=== PATIENT | female | born 1995 | race Caucasian/White ===

== ENCOUNTER → 2024-03-12 | Outpatient (CLI) | payer SELFPAY | END | disposition home or self-care (01) | PROVIDERS: Referring Provider Otolaryngology; Visit Provider Otolaryngology | DX: J32.9 Chronic sinusitis, unspecified (principal); J02.9 Acute pharyngitis, unspecified ==

== ENCOUNTER → 2024-03-13 | Outpatient (CLI) | payer BC, SELFPAY | END | disposition home or self-care (01) | LOC: LABSPEC 15:08 | PROVIDERS: Referring Provider Otolaryngology; Visit Provider Otolaryngology | DX: J32.9 Chronic sinusitis, unspecified (principal); J02.9 Acute pharyngitis, unspecified | CPT/HCPCS: 87070 ==

== ENCOUNTER 2024-05-06 21:04 | Emergency (ER) | payer BC, SELFPAY ==
[2024-05-06 21:05] VITALS: BP 136/94; PULSE 122; RESP 18; TEMP 36.1; O2SAT 99; BMI 28.1
[2024-05-06] MEDS: 0.9% Normal Saline (1000mL) 1,000 ML 999 ML IV (22:44)
[2024-05-06] MEDS: Diphenoxylate/Atrop 1 Tablet 2 TABLET PO (22:51)
[2024-05-06 22:52] LABS: Absolute Neutrophil Count 5.4 X10^3/uL (2.0-7.7); Basophil# 0.06 X10^3/uL; Basophil% 0.7 % (0-1); Eosinophil# 0.37 X10^3/uL; Eosinophils% 4.6 % (0-5); Hematocrit 42.1 % (37-47); Hemoglobin 14.2 g/dL (12.0-15.0); Lymphocyte % 22.2 % (19-41); Mean Corp Hgb Conc 33.7 g/dL (32-36); Mean Corpuscular Hgb 28.7 pg (27.0-32.0); Mean Corpuscular Volume 85.1 fL (81-99); Mean Platelet Vol. 10.2 fl (6.2-12.0); Monocyte# 0.43 X10^3/uL; Monocyte% 5.3 % (0-10); NRBC Flagged by Analyzer 0 % (0-5); Neutrophil # 5.44 X10^3/uL (2.7-7.7); Platelet Count 242 K/mm3 (150-450); RBC Distribution Width CV 11.6 % (11.6-14.6); RBC Distribution Width SD 35.8 fl (35.1-43.9); Red Blood Count 4.95 M/mm3 (4.2-5.4); White Blood Count 8.1 K/mm3 (4.4-11.0)
[2024-05-06 23:02] LABS: Internal QC Validated? YES +Cl - CLEAR BKGD; Pregnancy, Serum, hCG Quali. NEGATIVE Negative
[2024-05-06 23:04] VITALS: PULSE 86; RESP 18; O2SAT 100
[2024-05-06 23:08] LABS: AST(SGOT) 13 U/L (15-37); Alanine Aminotransfer ALT/SGPT 20 U/L (13-56); Albumin, Serum 4.5 g/dL (3.2-5.0); Alkaline Phosphatase 92 U/L (45-117); Anion Gap 6 (5-15); BUN 7 mg/dL (7-18); Bilirubin, Direct 0.19 mg/dL (0.00-0.30); Calcium,Total 9.9 mg/dL (8.5-10.1); Chloride 107 mmol/L (98-107); Creatinine, Serum 0.64 mg/dL (0.55-1.02); EST Glomerular Filtration Rate 118 mL/min (>60); Est Glom Filt Rate - Afr Amer 143 mL/min (>60); Estimated Creatinine Clearance 130.51 ml/min; Glucose 77 mg/dL (74-106); Potassium 3.4 mmol/L (3.5-5.1); Protein, Total 7.5 g/dL (6.4-8.2); Sodium Level 140 mmol/L (136-145)
--- NOTE | 2024-05-06 23:54 | EX.ED.DYSGE1 ---
HPI History of Present Illness Chief Complaint: Diarrhea Informant: patient Narrative Narrative: Patient is a 29-year-old female with past medical history of type 1 diabetes and she also reports IBS. She states she has had 3 weeks of diarrhea which she describes more as soft and fluffy. She states that there has been no blood or discoloration to the diarrhea and that it does not occur while she is sleeping. She reports that there is been no recent travel outside the country livestock exposure or antibiotic use. 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 Therefore she presents for evaluation [facility] Medical History (Updated 05/07/24 @ 02:[address] Tristin Banks, DO) Physical exam, pre-employment Home Medications ?Medication ?Instructions ?Recorded ?Last Taken ?Type diphenoxylate-atropine 2.5 1 tab PO 4X/DAY PRN diarrhea 5 05/06/24 Unknown Rx mg-0.025 mg tablet (Lomotil) days #20 tabs blood-glucose transmitter (Dexcom 05/07/24 Unknown History G6 Transmitter device) insulin aspart U-100 100 unit/mL 100 unit subcut DAILY 05/07/24 Unknown History subcutaneous solution (Novolog U-100 Insulin aspart) Allergy/AdvReac Type Severity Reaction Status Date / Time acetaminophen AdvReac Mild Nausea/Vom/ Verified 05/06/24 21:05 Diarrhea amoxicillin AdvReac Mild Nausea/Vom/ Verified 05/06/24 21:05 Diarrhea Family History no significant family his Social History Smoking Status: Never smoker ROS ROS ED Constitutional Constitutional ED: Denies chills or fever(s) Eyes Eyes: Denies blurry vision or change in vision ENT ENT ED: Denies sore throat Cardiovascular Cardiovascular: Denies chest pain Respiratory/Chest Respiratory/Chest: Denies cough or dyspnea Gastrointestinal Gastrointestinal: Reports diarrhea; Denies abdominal pain, melena, nausea or vomiting Genitourinary Genitourinary ED: Denies dysuria Musculoskeletal Musculoskeletal: Denies myalgias Integumentary Denies rash Neurologic Neurologic: Denies headache(s) Hematologic/Lymphatic Hematologic/Lymphatic: Denies easy bleeding or easy bruising EXAM Physical Exam Const Vital Signs: 05/06/24 21:05 05/06/24 23:04 05/07/24 00:21 Temperature 96.9 F L 97.2 F L Temperature Source Temporal Pulse Rate 122 H 86 95 Respiratory Rate 18 18 18 Blood Pressure 136/94 H 116/79 Blood Pressure Mean 108 91 Pulse Ox 99 100 99 Oxygen Delivery Method Room Air Room Air Positive well nourished and well developed General Appearance ED: well developed; Negative for pallor HEENT Reports dry mucous membranes HEENT Narrative: Mucous membranes are dry and tacky without tongue or lip swelling oral lesions or airway edema or compromise No secondary findings in the posterior pharynx to suggest infection Mouth ED: Yes dry mucous membranes Mouth: dry mucous membranes Eyes PERRL and EOMs intact bilaterally General Eye ED: Negative for pale conjunctiva or scleral icterus Neck supple Resp normal respiratory effort and clear to auscultation bilaterally Cardio regular rate and regular rhythm GI normal to inspection, nondistended, normoactive bowel sounds, non-tender, non-distended and no masses GI Narrative: No voluntary guarding or rigidity or pulsatile mass Auscultation: normoactive bowel sounds Palpation: soft Extremity normal to inspection Neuro oriented x3, CN's II-XII intact bilaterally and no sensory deficits noted Sensorium / Orientation: alert Motor Exam: strength 5/5 throughout Psych mental status grossly normal Skin no rashes or lesions noted and no wounds Skin Narrative: Skin turgor slightly increased General Skin Exam: Negative for jaundice or pallor MDM MDM MDM Narrative Medical decision making narrative: Patient arrived to the ER tachycardic and hypertensive otherwise with stable vitals. She reported 3 weeks of loose stool and is a type I diabetic. However she does not have risk factors for infectious diarrhea as she denies any recent antibiotic use travel outside the country or livestock exposure. However based on the prolonged nature of her symptoms and physical exam showing dehydration there is concern for acute kidney injury versus lecture abnormality versus DKA so basic workup was obtained. Labs revealed no clinically significant findings. Patient was able to give a stool sample in the ER and therefore to be sent for stool studies as this will ultimately inform us if there is any type of infectious process as the cause of her persistent loose stool. After IV hydration and Lomotil however she had improvement in vitals and abdomen remains soft and nonsurgical and therefore she is otherwise safe for discharge and can follow-up on an outpatient basis. History & Record Review Discussion w/independent historian: Patient Lab Data Attestation: I reviewed the patient's lab results. Labs: Laboratory Results - last 24 hr 05/06/24 22:43 WBC 8.1 RBC 4.95 Hgb 14.2 Hct 42.1 MCV 85.1 MCH 28.7 MCHC 33.7 RDW Std Deviation 35.8 RDW Coeff of Tamar 11.6 Plt Count 242 MPV 10.2 Immature Gran % (Auto) 0.200 Neut % (Auto) 67.0 Lymph % (Auto) 22.2 Hendricks % (Auto) 5.3 Eos % (Auto) 4.6 Baso % (Auto) 0.7 Absolute Neuts (auto) 5.4 Absolute Lymphs (auto) 1.80 Nucleated RBC % 0 Sodium 140 Potassium 3.4 L Chloride 107 Carbon Dioxide 27.0 Anion Gap 6 BUN 7 Creatinine 0.64 Estim Creat Clear Calc 130.51 Est GFR (MDRD) Af Amer 143 Est GFR (MDRD) Non-Af 118 BUN/Creatinine Ratio 11.0 Glucose 77 Calcium 9.9 Magnesium 2.0 Total Bilirubin 0.60 Direct Bilirubin 0.19 AST 13 L ALT 20 Alkaline Phosphatase 92 Total Protein 7.5 Albumin 4.5 Globulin 3.0 Serum , Qual NEGATIVE Discharge Plan Triage Chief Complaint: Diarrhea ED Provider: rTistin Banks Dx/Rx/DC Orders Clinical Impression: Diarrhea, Type 1 diabetes, Mild dehydration Instructions: ED Diarrhea, Unknown Cause Prescriptions: New diphenoxylate-atropine [Lomotil] 2.5-0.025 mg tablet 1 tab PO 4X/DAY PRN (Reason: diarrhea) 5 Days Qty: 20 0RF No Action insulin aspart U-100 [Novolog U-100 Insulin aspart] 100 unit/mL solution 100 unit subcut DAILY (DME) Dexcom G6 Transmitter Device MISCELLANEOUS Patient Comments: 1 EACH BY INSTRUCTED ROUTE EVERY 90 DAYS Primary Care Provider: Care Physician,No Primary Referrals: Chai Singh MD [Med Staff - Active Staff] - Care Physician,No Primary [Primary Care Provider] - Activity Restrictions/Additional Instructions: Your exam showed no obvious signs of infection. The stool sample you gave will be run to check to see if there is infectious process such as E. coli or Salmonella or C. difficile. If this is positive you will be notified otherwise no new notification indicates that the sample was negative for infectious process. Keep yourself well-hydrated and follow-up with your family doctor for repeat evaluation and return to the ER should you have any further concerns Print Language: Sinhala Disposition Disposition: Home, Self Care Discharge Date/Time: 05/07/24 00:22
[2024-05-07 00:21] VITALS: BP 116/79; PULSE 95; RESP 18; TEMP 36.2; O2SAT 99
== END 2024-05-07 00:22 | disposition home or self-care (01) ==
PROVIDERS: Emergency Provider Emergency Medicine; Visit Provider Emergency Medicine
DX: E86.0 Dehydration (principal); E10.9 Type 1 diabetes mellitus without complications; K58.0 Irritable bowel syndrome with diarrhea
CPT/HCPCS: 80048; 80076; 83735; 84703; 85025; 87177; 87209; 96360; 99284; J7030; A4216

== ENCOUNTER 2024-06-06 01:48 | Emergency (ER) | payer BC, SELFPAY ==
[2024-06-06 01:49] VITALS: BP 149/92; PULSE 113; RESP 20; TEMP 37; O2SAT 99; BMI 30.5
[2024-06-06 02:14] LABS: Mucous, Urine 0 SEEN /hpf (<or=2+); Red Blood Cells-Urine 0 SEEN /hpf (0-5); White Blood Cells 0 SEEN /hpf (0-5)
[2024-06-06 02:17] LABS: Absolute Neutrophil Count 5.1 X10^3/uL (2.0-7.7); Basophil# 0.06 X10^3/uL; Basophil% 0.7 % (0-1); Eosinophil# 0.54 X10^3/uL; Eosinophils% 6.3 % (0-5); Hematocrit 39.6 % (37-47); Hemoglobin 13.3 g/dL (12.0-15.0); Lymphocyte % 26.9 % (19-41); Mean Corp Hgb Conc 33.6 g/dL (32-36); Mean Corpuscular Volume 86.3 fL (81-99); Mean Platelet Vol. 10.6 fl (6.2-12.0); Monocyte# 0.57 X10^3/uL; Monocyte% 6.7 % (0-10); NRBC Flagged by Analyzer 0 % (0-5); Neutrophil # 5.05 X10^3/uL (2.7-7.7); Neutrophil % 59.2 % (47-70); Platelet Count 233 K/mm3 (150-450); RBC Distribution Width SD 37.8 fl (35.1-43.9); Red Blood Count 4.59 M/mm3 (4.2-5.4); White Blood Count 8.5 K/mm3 (4.4-11.0)
[2024-06-06 02:18] LABS: Color, Urine Yellow (Yellow); Glucose, Dipstick Normal (Normal); Ketone-Dipstick Negative (Negative); Leukocyte Esterase-Dipstick Negative /ul (Negative); Nitrite-Dipstick Negative (Negative); Occult Blood-Urine Negative /ul (Negative); Protein-Dipstick Negative (Negative); Urine Bilirubin Dipstick Negative (Negative); Urine Clarity Clear (Clear); Urine Urobilinogen Normal (Normal)
[2024-06-06 02:31] LABS: Bacteria 2+ /hpf (None Seen); Squamous Epithelial Cells - UA 0-5 SEEN /hpf (5-10)
[2024-06-06 02:33] LABS: Internal QC Validated? YES +Cl - CLEAR BKGD; Pregnancy, Serum, hCG Quali. NEGATIVE Negative; Record Kit Lot#, Serum Preg. 772476
[2024-06-06 02:34] LABS: ALB/GLOB Ratio 1.4 RATIO (0.9-2.4); AST(SGOT) 12 U/L (15-37); Alanine Aminotransfer ALT/SGPT 16 U/L (13-56); Albumin, Serum 4.2 g/dL (3.2-5.0); Alkaline Phosphatase 100 U/L (45-117); Anion Gap 9 (5-15); BUN 8 mg/dL (7-18); BUN/Creat Ratio 11.5 RATIO (10-20); Calcium,Total 9.5 mg/dL (8.5-10.1); Chloride 107 mmol/L (98-107); EST Glomerular Filtration Rate 107 mL/min (>60); Est Glom Filt Rate - Afr Amer 130 mL/min (>60); Estimated Creatinine Clearance 114.99 ml/min; Glucose 154 mg/dL (74-106); Potassium 3.7 mmol/L (3.5-5.1); Protein, Total 7.2 g/dL (6.4-8.2); Sodium Level 139 mmol/L (136-145)
--- NOTE | 2024-06-06 03:23 | ED.VIS.GI ---
HPI HPI - GI History of Present Illness Chief Complaint: Abd Pain Informant: patient Abdominal Pain/Flank Pain Onset: Month(s) (2) Context: Gradual Onset Timing: Continuous Quality: Burning and Sharp Location: Diffuse Worsened by: Food Relieved by: Nothing Nausea/Vomiting/Emesis GI Symptom: Positive for Nausea; Negative for Vomiting Diarrhea/Melena/Hematochezia GI Symptom: Positive for Diarrhea; Negative for Melena or Hematochezia Stool Quality: Positive for Watery; Negative for Black, Maroon or BRB per rectum Associated Symptoms Associated Symptoms: Negative for Dysuria, Frequency or Hematuria LMP: 05/16/2024 Narrative Narrative: Patient presents with abdominal pain that has been waxing and waning over the past 2 months. Patient states that became worse again today. Patient states that it came on gradually. Patient describes her pain as sharp and burning. Patient states her pain is over her upper and lower abdomen. Patient states it is worse with eating. Patient admits to some nausea but denies any vomiting. Patient admits to some watery diarrhea. Patient denies any melena or hematochezia. Patient denies any urinary complaints. Patient states her pain does radiate into her back. Patient states the first day of her last menstrual period was 05/16/2024. [facility] Medical History IBS (irritable bowel syndrome) Asthma Type 1 diabetes Physical exam, pre-employment Home Medications ?Medication ?Instructions ?Recorded ?Last Taken ?Type blood-glucose transmitter (Dexcom 05/07/24 Unknown History G6 Transmitter device) insulin aspart U-100 100 unit/mL 100 unit subcut DAILY 05/07/24 Unknown History subcutaneous solution (Novolog U-100 Insulin aspart) Allergy/AdvReac Type Severity Reaction Status Date / Time acetaminophen AdvReac Mild Nausea/Vom/ Verified 06/06/24 01:48 Diarrhea amoxicillin AdvReac Mild Nausea/Vom/ Verified 06/06/24 01:48 Diarrhea Surgical History History of adenoidectomy Hx of tonsillectomy S/P nasal surgery Social History Smoking Status: Never smoker ROS ROS ED Constitutional Constitutional ED: Denies chills or fever(s) Eyes Eyes: Denies blurry vision or change in vision ENT ENT ED: Reports sore throat; Denies rhinorrhea Cardiovascular Cardiovascular: Denies chest pain or palpitations Respiratory/Chest Respiratory/Chest: Denies cough or dyspnea Gastrointestinal Gastrointestinal: Reports abdominal pain, diarrhea and nausea; Denies melena or vomiting Genitourinary Genitourinary ED: Denies dysuria or hematuria Musculoskeletal Musculoskeletal: Reports back pain; Denies neck pain Integumentary Denies abscess or rash Neurologic Neurologic: Denies headache(s) or weakness Allergic/Immunologic Allergic/Immunologic ED: Denies mouth swelling or urticaria EXAM Physical Exam Const Vital Signs: 06/06/24 01:49 06/06/24 03:40 Temperature 98.6 F Temperature Source Oral Pulse Rate 113 H 91 Respiratory Rate 20 H 16 Blood Pressure 149/92 H 119/78 Blood Pressure Mean 111 91 Pulse Ox 99 98 Oxygen Delivery Method Room Air Positive well nourished and well developed General Appearance ED: well developed and NAD HEENT Reports moist mucous membranes Neck supple and no JVD Resp normal respiratory effort and clear to auscultation bilaterally Cardio regular rhythm Rate: tachycardic GI non-distended Palpation: soft and tender epigastric, LUQ and RUQ; Negative for guarding or rebound tenderness present Neuro CN's II-XII intact bilaterally, moves all extremities and no sensory deficits noted Sensorium / Orientation: alert Motor Exam: strength 5/5 throughout Psych mental status grossly normal MDM MDM MDM Narrative Medical decision making narrative: Differential diagnosis included gastroenteritis, viral illness, IBS, DKA, pancreatitis, peptic ulcer disease, cholecystitis, cholelithiasis, pyelonephritis, appendicitis, urinary tract infection, and colitis. CBC will be obtained to assess for leukocytosis and anemia. Comprehensive metabolic profile will be obtained to assess for electrolyte abnormality, renal function, and hepatic function. Lipase will be obtained to assess for pancreatitis. Serum acetone will be obtained to assess for diabetic ketoacidosis. Urinalysis will be obtained to assess for urinary tract infection and glucosuria. History & Record Review Additional record(s) reviewed:: Prior ED visit and Prior labs Lab Data Attestation: I reviewed the patient's lab results. Lab results narrative: CBC was reviewed and was within normal limits. Comprehensive metabolic profile was reviewed and was within normal limits with the exception of a mildly elevated glucose of 154. Lipase was reviewed and was normal at 24. Serum hCG was reviewed and was negative. Urinalysis was reviewed. There is no evidence of urinary tract infection or hematuria. Serum acetone level was reviewed and was negative. Labs: Laboratory Results - last 24 hr 06/06/24 06/06/24 02:06 02:10 WBC 8.5 RBC 4.59 Hgb 13.3 Hct 39.6 MCV 86.3 MCH 29.0 MCHC 33.6 RDW Std Deviation 37.8 RDW Coeff of Tamar 12.0 Plt Count 233 MPV 10.6 Immature Gran % (Auto) 0.200 Neut % (Auto) 59.2 Lymph % (Auto) 26.9 Miller % (Auto) 6.7 Eos % (Auto) 6.3 H Baso % (Auto) 0.7 Absolute Neuts (auto) 5.1 Absolute Lymphs (auto) 2.30 Nucleated RBC % 0 Sodium 139 Potassium 3.7 Chloride 107 Carbon Dioxide 23.0 Anion Gap 9 BUN 8 Creatinine 0.70 Estim Creat Clear Calc 114.99 Est GFR (MDRD) Af Amer 130 Est GFR (MDRD) Non-Af 107 BUN/Creatinine Ratio 11.5 Glucose 154 H Calcium 9.5 Total Bilirubin 0.60 AST 12 L ALT 16 Alkaline Phosphatase 100 Total Protein 7.2 Albumin 4.2 Globulin 3.0 Albumin/Globulin Ratio 1.4 Lipase 24 Serum , Qual NEGATIVE Urine Color Yellow Urine Clarity Clear Urine pH 7.0 Ur Specific [place] 1.010 Urine Protein Negative Urine Glucose (UA) Normal Urine Ketones Negative Urine Occult Blood Negative Urine Nitrite Negative Urine Bilirubin Negative Urine Urobilinogen Normal Ur Leukocyte Esterase Negative Urine RBC 0 SEEN Urine WBC 0 SEEN Ur Squamous Epith Cells 0-5 SEEN Urine Bacteria 2+ Urine Mucus 0 SEEN Acetone Level NEGATIVE Treatment and Re-Evaluation :: Patient was given IV fluids and Zofran. Patient was feeling better on reevaluation. Patient was advised of her findings. I reviewed patient's stool studies from her previous visit. Stool was negative for ova and parasites. Patient was instructed to start with a liquid diet and advance as tolerated. Patient was given a referral for gastroenterology. Patient was instructed to follow-up in 5 to 7 days for further evaluation. Patient was instructed return if worse in any way. Patient understood and was agreeable with the plan. All questions were answered. Discharge Plan Triage Chief Complaint: Abd Pain ED Provider: Mata Owusu Dx/Rx/DC Orders Clinical Impression: Abdominal pain, Diarrhea, Diabetes mellitus Instructions: ED Abdominal Pain Unkn Cause Fem, ED Diarrhea, Unknown Cause Prescriptions: No Action insulin aspart U-100 [Novolog U-100 Insulin aspart] 100 unit/mL solution 100 unit subcut DAILY (DME) Dexcom G6 Transmitter Device MISCELLANEOUS Patient Comments: 1 EACH BY INSTRUCTED ROUTE EVERY 90 DAYS Primary Care Provider: Care Physician,No Primary Referrals: Sly Carson DO [Med Staff - Active Staff] - 1-2 Weeks Care Physician,No Primary [Primary Care Provider] - Doctor,Your [Non-Staff] - 5-7 Days (Call your primary care physician tomorrow and tell them you were seen in the emergency department and you need a follow-up appointment.) Print Language: Icelandic Disposition Disposition: Home, Self Care
[2024-06-06 03:40] VITALS: BP 119/78; PULSE 91; RESP 16; O2SAT 98
[2024-06-06 03:45] LABS: Lipase 24 U/L (13-75)
[2024-06-06 04:48] VITALS: BP 122/78; PULSE 88; RESP 16; TEMP 37.1; O2SAT 100
== END 2024-06-06 05:01 | disposition home or self-care (01) ==
PROVIDERS: Emergency Provider Emergency Medicine; Visit Provider Emergency Medicine
DX: R10.9 Unspecified abdominal pain (principal); E11.9 Type 2 diabetes mellitus without complications; Z79.4 Long term (current) use of insulin; R11.2 Nausea with vomiting, unspecified; R19.7 Diarrhea, unspecified
CPT/HCPCS: 80053; 81001; 82009; 83690; 84703; 85025; 96361; 96374; 99282; J7030; A4216; J2405

== ENCOUNTER → 2024-06-10 | Outpatient (CLI) | payer BC, SELFPAY ==
[2024-06-10 14:22] LABS: Erythrocyte Sedimentation Rate 3 mm/hr (0-30)
[2024-06-10 14:32] LABS: CRP < 2.90 mg/L (0.0-3.0); LDH 160 U/L (84-246)
[2024-06-16 12:09] LABS: ACCA 2 units (0-90); ALCA 2 units (0-60); AMCA 5 units (0-100); Albumin 3.9 g/dL (2.9-4.4); Alpha-1-Globulins 0.3 g/dL (0.0-0.4); Alpha-2-Globulins 0.8 g/dL (0.4-1.0); Gamma Globulin 0.5 g/dL (0.4-1.8); Immunoglobulin A 26 mg/dL (87-352); Immunoglobulin G 425 mg/dL (586-1602); Immunoglobulin M 110 mg/dL (26-217); PROEL- TOTAL PROTEIN 6.3 g/dL (6.0-8.5); gASCA 4 units (0-50); t-Transglutaminase IgA <2 U/mL (0-3)
== END | disposition home or self-care (01) ==
LOC: LAB 13:52
DX: R10.9 Unspecified abdominal pain (principal); R19.7 Diarrhea, unspecified
CPT/HCPCS: 36415; 82784; 83516; 83615; 84165; 85652; 86036; 86140; 86334; 86671

== ENCOUNTER → 2024-06-12 | Outpatient (CLI) | payer BC, SELFPAY ==
[2024-06-16 09:08] LABS: Giardia Lamblia, Stool EIA Negative (Negative); Pancreatic Elastase, Fecal 544 (>200)
[2024-06-16 13:09] LABS: Calprotectin, Stool 190 ug/g (0-120)
== END | disposition home or self-care (01) ==
LOC: LABSPEC 13:42
DX: R10.9 Unspecified abdominal pain (principal); R19.7 Diarrhea, unspecified; K58.9 Irritable bowel syndrome, unspecified
CPT/HCPCS: 82653; 83630; 83993; 87329; 87506

== ENCOUNTER → 2024-07-07 | Outpatient (CLI) | payer BC, SELFPAY ==
--- NOTE | 2024-07-07 13:46 | CT_ITS ---
STUDY: CT ABDOMEN AND PELVIS WITH CONTRAST REASON FOR EXAM: Female, 29 years old. Severe abdominal pain -- IV and PO contrast RADIATION DOSAGE (If Supplied By Facility): CTDIvol = ( 8.73 ) mGy, DLP = ( 536.58 ) mGycm TECHNIQUE: Transaxial images were obtained from the dome of the diaphragm to the symphysis pubis with oral contrast. Oral and amp;amp; IV Readi-CAT and amp;amp; 100mL Isovue-370 was administered. Sagittal and coronal images were reconstructed. Individualized dose optimization techniques were used for this CT. COMPARISON: None. FINDINGS: The visualized lung bases are unremarkable. The visualized portions of the heart are within normal limits. Borderline hepatomegaly. Normal gallbladder and extrahepatic biliary system. There is mild splenomegaly. Normal pancreas. Normal bilateral adrenal glands. Normal right kidney. Normal left kidney. Normal visualized stomach. Normal small intestine. Fecal material is seen throughout the colon. The appendix is visualized and appears normal. Normal abdominal aorta. Normal inferior vena cava. Normal retroperitoneum. Normal urinary bladder. IUD is seen within the uterus. Heterogeneous enlargement of the right ovary measuring 3.2 cm x 3 cm. Correlation with ultrasound of the pelvis recommended. Normal abdominal wall. Normal osseous structures. CT/Abdomen/Pelvis WITH Contrast IMPRESSION: Heterogeneous enlargement of the right ovary. Correlation with pelvic sonogram recommended. IUD is seen within the uterus. Moderate amount of fecal material is seen in the colon. Mild splenomegaly. Electronically Signed: Michael Louie MD at 12:17 EDT ,
== END | disposition home or self-care (01) ==
LOC: CT 13:45
DX: R10.84 Generalized abdominal pain (principal); K58.0 Irritable bowel syndrome with diarrhea
CPT/HCPCS: 74177; Q9967

== ENCOUNTER 2025-03-16 12:07 | Day surgery (SDC) | payer BC, SELFPAY ==
[2025-03-16] VITALS (7 sets, daily range): BP systolic 84–131; BP diastolic 52–73; PULSE 85–113; RESP 16–18; TEMP 36.7–37.2; O2SAT 99–100; BMI 29.5
[2025-03-16] MEDS: Lactated Ringers 1,000 ML 15 ML IV (12:48)
[2025-03-16 12:55] LABS: Bedside Glucose 150 mg/dL (74-106)
[2025-03-16 12:56] LABS: Internal QC Validated? YES +Cl - CLEAR BKGD; Pregnancy, Urine Negative Negative
--- NOTE | 2025-03-16 13:11 | PCM.PRE.AN2 ---
ASA Classification* ASA Classification ASA Classification: 2 Assessment & Plan Anesthesia* Anesthesia Assessment Anesthesia Assessment: Discussed sedation and/or anesthesia options, risks, benefits, and alternatives with patient/parents/legal guardian/POA. Questions invited. The patient/parents/legal guardian/POA seems to understand and agrees to proceed with anesthesia plan. Reviewed the physical assessment, medical history, allergy history and patient home medications list prior to surgery/procedure/anesthetic and documented any changes. Performed airway and anesthesia risk assessments. Anesthesia Type Anesthesia Type: MAC History Source History Obtained from:: Patient and Chart Anesthesia Focused Assessment* Temperature: 98.6 F Pulse Rate: 113 Blood Pressure: 131/73 Respiratory Rate: 18 Pulse Ox: 100 Oxygen Delivery Method: Room Air Airway Assessment Mouth opens: >3 cm Mallampati Score: III Teeth Condition: Intact Neck Range of motion (ROM): Full ROM Focused Labs Anesthesia Preop lab: CBC WBC 8.5 K/mm3 (4.4-11.0) 06/06/24 02:06 06/06/24 RBC 4.59 M/mm3 (4.2-5.4) 06/06/24 02:06 06/06/24 Hgb 13.3 g/dL (12.0-15.0) 06/06/24 02:06 06/06/24 Hct 39.6 % (37-47) 06/06/24 02:06 06/06/24 Plt Count 233 K/mm3 (150-450) 06/06/24 02:06 06/06/24 CHEMISTRY Potassium 3.7 mmol/L (3.5-5.1) 06/06/24 02:06 06/06/24 Sodium 139 mmol/L (136-145) 06/06/24 02:06 06/06/24 Magnesium 2.0 mg/dL (1.6-2.6) 05/06/24 22:43 05/06/24 BUN 8 mg/dL (7-18) 06/06/24 02:06 06/06/24 Creatinine 0.70 mg/dL (0.55-1.02) 06/06/24 02:06 06/06/24 Glucose 154 mg/dL (74-106) H 06/06/24 02:06 06/06/24 POC Glucose 150 mg/dL (74-106) H 03/16/25 12:36 03/16/25 COAG Urine Test Negative Negative 03/16/25 12:30 03/16/25 Pre-Assessment Diagnosis/Proposed Procedure Planned Operative Procedure(s): CSCOPE/EGD Anesthesia History Anesthesia History - machine stoppage frequency checker: Anesthesia History - machine stoppage frequency checker Hx Hospitalization No 03/11/25 13:02 Any Problems With Anesthesia No 03/11/25 13:02 Cholinesterase deficiency No 03/11/25 13:02 You/Your Family Experience No 03/11/25 13:02 fever (hyperthermia) with Relationship Recent Exposure to Contagious No 03/16/25 12:49 Disease Does patient have nerve No 03/11/25 13:02 stimulator Patient instructed to have device shut off --Does patient have Pacemaker No 03/16/25 12:49 or ICD? When Was Last Pacemaker Check QUESTION #4 FULL TEXT: You/Your Family Experience fever (hyperthermia) with Anesthesia Last Oral Intake Last Oral intake: Last Oral Intake NPO since 09:00 03/16/25 12:49 Meds taken in AM with sips of No 03/16/25 12:49 water? Meds patient instructed to breo 03/16/25 12:49 take am of surgery Any additional information?: Yes NPO since: 09:00 (Patient finished her prep at 9 AM.) PONV PONV - machine stoppage frequency checker: PONV - machine stoppage frequency checker Female Yes 03/11/25 13:02 HX of Motion Sickness Yes 03/11/25 13:02 HX of N/V After Surgery No 03/11/25 13:02 Non-Smoker Yes 03/11/25 13:02 Duration of Surgery greater No 03/11/25 13:02 than 60 minutes Number of Risk Factors 3 03/11/25 13:02 PONV Score Moderate Risk 03/11/25 13:02 Height & Weight Height & Weight: Anesthesia: Height & Weight Height 5 ft 3 in 03/16/25 12:49 Weight: 75.5 kg 03/16/25 12:49 Body Mass Index (BMI) 29.5 03/16/25 12:49 Respiratory Assessment Respiratory Assessment - machine stoppage frequency checker: Respiratory Tract Infection Hx - machine stoppage frequency checker Hx Respiratory Tract Infection No 03/11/25 13:02 STOP Sleep Apnea STOP Sleep Apnea - machine stoppage frequency checker: STOP Sleep Apnea - machine stoppage frequency checker Hx Hypertension No 03/11/25 13:02 Hx Sleep Apnea No 03/11/25 13:02 CPAP BIPAP Do you snore loudly (louder No 03/11/25 13:02 than talking or can be heard Do you often feel tired/ No 03/11/25 13:02 fatigued/ sleepy during daytime? Has anyone observed you stop No 03/11/25 13:02 breathing during sleep? STOP Results Negative 03/11/25 13:02 QUESTION #5 FULL TEXT : Do you snore loudly (louder than talking or can be heard through closed doors)? Tobacco Use History Tobacco Use History - machine stoppage frequency checker: Tobacco Use History - machine stoppage frequency checker Tobacco Use Smoking Status Never smoker 03/11/25 13:02 Hx Tobacco Use No 03/11/25 13:02 Years Smoking Packs Smoked per Day Smoking Cessation Date was within the last 15 years Hx Smoking Cessation Date Hx Smoking Cessation Counseling Hematologic Medial History Hematologic Hx - machine stoppage frequency checker: Hematologic Medical Hx - digital strategy specialist Hx of Blood Transfusion No 03/11/25 13:02 Hx of Transfusion in last 3 No 03/11/25 13:02 Months Date of Last Transfusion (if within last 3 months) Ever experience any problems No 03/11/25 13:02 with transfusion(s)? Specify any problems Hx of Preganancy in last 3 No 03/11/25 13:02 Months Nurse Filling Out Transfusion DSCHRIBER 03/11/25 13:02 & Questions: Date: 03/11/25 03/11/25 13:02 Time: 13:03 03/11/25 13:02 Patient unable to answer at this time (ie. confused, unrespo /Reproduction History /Reproductive History - machine stoppage frequency checker: /Reproductive Hx- machine stoppage frequency checker Hx Now No 03/11/25 13:02 Gestational Age (in weeks): EDC: Hx Hx Para Hx Section SAB No 03/11/25 13:02 Active Medications Active Medications: Current Medications Generic Name Dose Route Start Last Admin Trade Name Freq PRN Reason Stop Dose Admin Lactated Ringer's 1,000 mls @ 15 mls/hr 03/16/25 12:30 03/16/25 12:48 IV 15 mls/hr .Q48H BÁRBARA Administration PFSH Medical History Anxiety Alcohol use Insulin dependent diabetes mellitus History of renal disease Low iron Restless legs Migraine headache History of ulceration Gastric reflux Shortness of breath on exertion Non-smoker IBS (irritable bowel syndrome) Asthma Type 1 diabetes Physical exam, pre-employment Home Medications ?Medication ?Instructions ?Recorded ?Last Taken ?Type blood-glucose transmitter (Dexcom 05/07/24 Unknown History G6 Transmitter device) insulin aspart U-100 100 unit/mL 100 unit subcut DAILY 05/07/24 Unknown History subcutaneous solution (Novolog U-100 Insulin aspart) albuterol sulfate 90 mcg/actuation 1 inh inhalation ONCE 06/10/24 Unknown History aerosol inhaler clonidine HCl 0.2 mg tablet 0.2 mg PO QHS 06/10/24 Unknown History fluticasone furoate 100 1 inh inhalation DAILY 06/10/24 03/16/25 History mcg-vilanterol 25 mcg/dose inhalation powder (Breo Ellipta) levonorgestrel 17.5 mcg/24 hr (up 1 device intrauterine ONCE 06/10/24 Unknown History to 5 yrs) 19.5mg intrauterine device (Kyleena) hyoscyamine sulfate 0.125 mg tablet 0.125 mg PO BID-QID PRN dyspepsia 11/27/24 Unknown Rx #30 tabs diphenoxylate-atropine 2.5 1 tab PO BID PRN diarrhea #14 tabs 12/31/24 Unknown Rx mg-0.025 mg tablet (Lomotil) colestipol 1 gram tablet 4 g (4 x 1 gram) PO BID 1 month 01/26/25 Unknown Rx #240 tabs melatonin 10 mg capsule 10 mg PO QHS PRN sleep 03/11/25 Unknown History Allergy/AdvReac Type Severity Reaction Status Date / Time acetaminophen AdvReac Mild Nausea/Vom/ Verified 03/16/25 12:46 Diarrhea amoxicillin AdvReac Mild Nausea/Vom/ Verified 03/16/25 12:46 Diarrhea Family History Mother Ulcerative colitis Surgical History Hx of colonoscopy Hx of toe surgery History of adenoidectomy Hx of tonsillectomy S/P nasal surgery Social History Smoking Status: Never smoker Review of Systems (Anesthesia) ROS Narrative System reviewed and no additional complaints, except as documented.
--- NOTE | 2025-03-16 13:30 | EGD_PTH ---
PATIENT: CHAY NAVARRO LOC: EN U#:[id number] AGE/SX: 30/F ROOM: RE03/16/[address]: Dr. Sly Carson DO : 1995 BED: DIS: 03/16/2025 SPEC #: [id number] RECD: 03/16/25 16:47 STATUS: JOSE MARTIN RENeal #: [id number] VALENTINO: 03/16/25 13:[address]: Sly Carson DEPT: SURGICAL PATHOLOGY RECD BY: Beau Bonds ENTERED: 03/17/25 08:51 SP TYPE: EGD BIOPSY OTHR DR: Karina Lassiter MD Tissues: A - Duodenum, NOS B - Gastric mucous membrane C - Ileum, NOS D - COLON BIOPSY E - Rectum, NOS Procedures: Immunohistochemical Stains Surgery Specimen Level IV HEADER OPERATION: Colonoscopy with biopsies, EGD with biopsies PRE-OP DIAGNOSIS: Nausea, diarrhea, abdominal pain TISSUE SUBMITTED: A- Duodenum biopsy, B- Gastric body biopsy, C- Terminal ileum biopsy, D- Random colon biopsy, E- Rectal biopsy MICROSCOPIC DIAGNOSIS A. Small bowel, duodenum, biopsy: Normal villous architecture with focal Niya gland hyperplasia. Negative for increased intraepithelial lymphocytes. B. Stomach, gastric body, biopsy: Oxyntic mucosa with chronic gastritis. IHC negative for H.pylori organisms. C. Small bowel, terminal ileum, biopsy: Normal villous architecture with prominent mucosal lymphoid aggregates, favor reactive. D. Colon, random, biopsy: Hyperplastic polyp (one fragment). Colonic mucosa with no specific pathologic change (4 fragments). E. Rectum, biopsy: No specific pathologic change. MICROSCOPIC DESCRIPTION Slides are reviewed. All matched controls reacted appropriately. These tests were developed and their performance characteristics determined by [facility]. They may not have been cleared or approved by the U.S. Food and Drug Administration. The FDA has determined that such clearance or approval is not necessary. The above immunohistochemical/dualISH markers are ordered and reviewed by the Pathologist. GROSS DESCRIPTION A. Received in formalin in a container labeled with the patient's name, date of , and duodenum are 2 dorsey-pink fragments of mucosal tissue measuring 0.4 x 0.2 x 0.2 cm and 0.3 x 0.3 x 0.2 cm. Submitted in toto in A1. B. Received in formalin in a container labeled with the patient's name, date of , and gastric body for H. pylori and path are 2 dorsey-pink fragments of mucosal tissue measuring 0.3 x 0.2 x 0.2 cm and 0.5 x 0.2 x 0.2 cm. Submitted in toto in B1. C. Received in formalin in a container labeled with the patient's name, date of , and terminal ileum biopsy are 3 dorsey-pink fragments of mucosal tissue ranging from 0.3 x 0.2 x 0.2 cm to 0.5 x 0.2 x 0.2 cm. Submitted in toto in C1. D. Received in formalin in a container labeled with the patient's name, date of , and random colon biopsy are multiple dorsey-pink fragments of mucosal tissue measuring 1.0 x 0.7 x 0.3 cm in aggregate. Submitted in toto in D1. E. Received in formalin in a container labeled with the patient's name, date of , and rectal biopsy are 2 dorsey-pink fragments of mucosal tissue measuring 0.3 x 0.3 x 0.2 cm and 0.4 x 0.3 x 0.2 cm. Submitted in toto in E1. [facility] 03-17-2025 CPT:22855r0,09800
[2025-03-16] MEDS: Dextrose 5%-Lactated Ringers 1,000 ML 15 ML IV (13:41)
--- NOTE | 2025-03-16 13:46 | PCM.HP.STD ---
HPI - General General Date of Admission: 03/16/25 Date of Service: 03/16/25 Chief Complaint: diarrhea HPI Narrative CHAY NAVARRO, is a 30 F who presents for evaluation of diarrhea BGI established 06.10.24 with painful urgent loose stools starting after course of doxycycline and prednisone for a throat infection. Started on Colestipol Biochemical work up 06.12.24; IBD sgi wnl, cbc wnl, cmp wnl, fecal elastase wnl, fecal fat wnl, IGA low, IGG low, calprotectin [address] abd/pelvis 07.07.24: Heterogeneous enlargement of the right ovary. Correlation with pelvic sonogram recommended. IUD is seen within the uterus. Moderate amount of fecal material is seen in the colon. Mild splenomegaly. Last OV 09.29.24 Pt with improved symptoms on colestipol. Taking dicyclomine PRN for abd pain. Happy with improvements OV 3; Pt has had worsening in her symptoms over the past month. Her abd pain is back. It is in the epigastric region and associated with bloating. She is nausea on most days but does not vomit. She is having loose stools up to 6 times per day. She takes colestipol 4 grams daily. [facility] Medical History (Updated 03/16/25 @ 13:[address] Heart Friend, DO) Diarrhea Anxiety Alcohol use Insulin dependent diabetes mellitus History of renal disease Low iron Restless legs Migraine headache History of ulceration Gastric reflux Shortness of breath on exertion Non-smoker IBS (irritable bowel syndrome) Asthma Type 1 diabetes Physical exam, pre-employment Home Medications ?Medication ?Instructions ?Recorded ?Last Taken ?Type blood-glucose transmitter (Dexcom 05/07/24 Unknown History G6 Transmitter device) insulin aspart U-100 100 unit/mL 100 unit subcut DAILY 05/07/24 Unknown History subcutaneous solution (Novolog U-100 Insulin aspart) albuterol sulfate 90 mcg/actuation 1 inh inhalation ONCE 06/10/24 Unknown History aerosol inhaler clonidine HCl 0.2 mg tablet 0.2 mg PO QHS 06/10/24 Unknown History fluticasone furoate 100 1 inh inhalation DAILY 06/10/24 03/16/25 History mcg-vilanterol 25 mcg/dose inhalation powder (Breo Ellipta) levonorgestrel 17.5 mcg/24 hr (up 1 device intrauterine ONCE 06/10/24 Unknown History to 5 yrs) 19.5mg intrauterine device (Kyleena) hyoscyamine sulfate 0.125 mg tablet 0.125 mg PO BID-QID PRN dyspepsia 11/27/24 Unknown Rx #30 tabs diphenoxylate-atropine 2.5 1 tab PO BID PRN diarrhea #14 tabs 12/31/24 Unknown Rx mg-0.025 mg tablet (Lomotil) colestipol 1 gram tablet 4 g (4 x 1 gram) PO BID 1 month 01/26/25 Unknown Rx #240 tabs melatonin 10 mg capsule 10 mg PO QHS PRN sleep 03/11/25 Unknown History Allergy/AdvReac Type Severity Reaction Status Date / Time acetaminophen AdvReac Mild Nausea/Vom/ Verified 03/16/25 12:46 Diarrhea amoxicillin AdvReac Mild Nausea/Vom/ Verified 03/16/25 12:46 Diarrhea Family History Mother Ulcerative colitis Surgical History Hx of colonoscopy Hx of toe surgery History of adenoidectomy Hx of tonsillectomy S/P nasal surgery Social History Smoking Status: Never smoker ROS Constitutional Constitutional: Denies fatigue, fever(s), poor appetite, weight gain or weight loss Gastrointestinal Gastrointestinal: Denies belching, bloating, change in bowel habits, change in stool character, chewing difficulty, coffee ground emesis, constipation, cramping, diarrhea, dyspepsia, dysphagia, early satiety, excessive flatus, fecal incontinence, heartburn, hematemesis, hematochezia, hemorrhoids, loose stools, melena, nausea, odynophagia, rectal bleeding, tenesmus, vomiting or weight changes Vital Signs Vital Signs Vital Signs: 03/16/25 12:49 03/16/25 12:49 03/16/25 13:17 Temperature 98.6 F 98.6 F Temperature Source Temporal Pulse Rate 113 H 113 H Respiratory Rate 18 18 Respiratory Pattern Normal Blood Pressure 131/73 H 131/73 H Blood Pressure Mean 92 Blood Pressure Source Monitor Blood Pressure Position Semi-Fowlers Blood Pressure Location Right Arm Pulse Ox 100 100 Oxygen Delivery Method Room Air Room Air Weight Weight: 166 lb 7.184 oz Body Mass Index (BMI) 29.5 Physical Exam Const alert, oriented x3, no apparent distress and healthy appearing General Appearance: cooperative GI normal to inspection, nondistended, normoactive bowel sounds, soft to palpation, non-tender and non-distended Percussion: normal to percussion Rectal Exam: deferred Results Lab / Micro Data Labs: Laboratory Results - last 24 hr 03/16/25 12:30: Urine Test Negative 03/16/25 12:36: POC Glucose 150 H Assessment & Plan Assessment/Plan (1) Irritable bowel syndrome with diarrhea: (2) Diarrhea: PLAN: Assessment and Plan Assessment and Plan (1) Nausea: Status: Acute Plan: This is a 29 yo female pt here today for f/u regarding her IBS symptoms. Pt had her symptoms under control up until about one month ago. She has complaints of nausea, bloating and epigastric pain. Last EGD was about 5 years ago. She will undergo repeat to assess her upper GI tract. She will also have GES to rule out gastroparesis as she has rf and symptoms. PT is having loose stools up to 6x per day while on 4 grams of colestipol daily. She will undergo colonoscopy to assess her colon for colitis. Calprotectin from 2023 was mildly elevated. She will continue taking colestipol and add lomotil PRN. -GES -EGD and colonoscopy -Continue Colestipol -Lomotil PRN -F/u after procedure (2) Irritable bowel syndrome with diarrhea: Status: Acute (3) Abdominal pain: Status: Inactive Qualifiers: Abdominal location: generalized Qualified Code(s): R10.84 - Generalized abdominal pain Orders: Orders Gastric Emptying Study Today R11.0 - Nausea Medications: New diphenoxylate-atropine 2.5-0.025 mg (Lomotil) 1 TAB PO BID PRN 14 tabs 1RF diarrhea
--- NOTE | 2025-03-16 14:22 | OP.EGD_ITS ---
Patient Name: Shani Hong Procedure Date: 03/16/2025 1:44 PM Date of : 1995 Age: 30 Procedure: Upper GI endoscopy Indications: Epigastric abdominal pain, Diarrhea Providers: Sly Carson DO Medicines: Monitored Anesthesia Care Patient Profile: This is a 30 year old female. Refer to note in patient chart for documentation of history and physical. Patient has symptoms of chronic abdominal cramping, chronic epigastric abdominal pain, chronic dyspepsia and chronic nausea. Complications: No immediate complications. Procedure: Pre-Anesthesia Assessment: - Prior to the procedure, a History and Physical was performed, and patient medications and allergies were reviewed. The patient is competent. The risks and benefits of the procedure and the sedation options and risks were discussed with the patient. All questions were answered and informed consent was obtained. Patient identification and proposed procedure were verified by the physician in the pre-procedure area. Mental Status Examination: alert and oriented. Airway Examination: normal oropharyngeal airway and neck mobility. Respiratory Examination: clear to auscultation. CV Examination: normal. ASA Grade Assessment: II - A patient with mild systemic disease. After reviewing the risks and benefits, the patient was deemed in satisfactory condition to undergo the procedure. The anesthesia plan was to use monitored anesthesia care (MAC). Immediately prior to administration of medications, the patient was re-assessed for adequacy to receive sedatives. The heart rate, respiratory rate, oxygen saturations, blood pressure, adequacy of pulmonary ventilation, and response to care were monitored throughout the procedure. The physical status of the patient was re-assessed after the procedure. After obtaining informed consent, the endoscope was passed under direct vision. Throughout the procedure, the patient's blood pressure, pulse, and oxygen saturations were monitored continuously. The Colonoscope was introduced through the mouth, and advanced to the fourth part of the duodenum. Small bowel enteroscopy was deemed necessary. The upper GI endoscopy was accomplished without difficulty. The patient tolerated the procedure well. Scope In: 1:58:12 PM Scope Out: 2:01:42 PM Total Procedure Duration Time 0 hours 3 minutes 30 seconds Findings: The examined esophagus was normal. Patchy mildly erythematous mucosa without bleeding was found in the gastric body. Biopsies were taken with a cold forceps for histology. Verification of patient identification for the specimen was done. Estimated blood loss was minimal. Biopsies were taken with a cold forceps for Helicobacter pylori testing. Verification of patient identification for the specimen was done. Estimated blood loss was minimal. Patchy mild inflammation characterized by congestion (edema) was found in the first portion of the duodenum and in the second portion of the duodenum. Biopsies were taken with a cold forceps for histology. Verification of patient identification for the specimen was done. Estimated blood loss was minimal. Impression: - Normal esophagus. - Erythematous mucosa in the gastric body. Biopsied. - Duodenitis. Biopsied. Recommendation: - Discharge patient to home. - Resume previous diet. - Continue present medications. - Await pathology results. Procedure Code(s): --- Professional --- 56349, Small intestinal endoscopy, enteroscopy beyond second portion of duodenum, not including ileum; with biopsy, single or multiple CPT copyright 2021 [employer]. All rights reserved. The codes documented in this report are preliminary and upon coater slate review may be revised to meet current compliance requirements. Sly Carson DO 03/16/2025 2:22:06 PM This report has been signed electronically. Number of Addenda: 0 Note Initiated On: 03/16/2025 1:44 PM
--- NOTE | 2025-03-16 14:22 | OP.CCLET_ITS ---
03/16/2025 No Primary Care Physician Re : Upper GI endoscopy procedure for Shani Hong Dear Care Physician This procedure was performed on Sunday, March 16, 2025. My impressions and recommendations are as follows: Impressions : - Normal esophagus. - Erythematous mucosa in the gastric body. Biopsied. - Duodenitis. Biopsied. Recommendations : - Discharge patient to home. - Resume previous diet. - Continue present medications. - Await pathology results. My findings are described in the full procedure note, which is enclosed. If I can be of further assistance, please feel free to contact me at . Sincerely, Sly Carson, 03/16/2025 2:22:06 PM This report has been signed electronically.
--- NOTE | 2025-03-16 14:25 | OP.CCLET_ITS ---
03/16/2025 No Primary Care Physician Re : Colonoscopy procedure for Shani Hong Dear Care Physician This procedure was performed on Sunday, March 16, 2025. My impressions and recommendations are as follows: Impressions : - Congested mucosa in the rectum, in the sigmoid colon, at the hepatic flexure and in the ascending colon. Biopsied. - Mild inflammation was found in the ileum secondary to ileitis. Biopsied. Recommendations : - Discharge patient to home. - Resume previous diet. - Continue present medications. - Await pathology results. - Repeat colonoscopy for surveillance based on pathology results. My findings are described in the full procedure note, which is enclosed. If I can be of further assistance, please feel free to contact me at . Sincerely, Sly Carson, 03/16/2025 2:25:14 PM This report has been signed electronically.
--- NOTE | 2025-03-16 14:25 | OP.COLON_ITS ---
Patient Name: Shani Hong Procedure Date: 03/16/2025 2:01 PM Date of : 1995 Age: 30 Procedure: Colonoscopy Indications: Clinically significant diarrhea of unexplained origin Providers: Sly Carson DO Medicines: Monitored Anesthesia Care Patient Profile: This is a 30 year old female. Refer to note in patient chart for documentation of history and physical. Patient has symptoms of chronic abdominal cramping, chronic epigastric abdominal pain, chronic dyspepsia and chronic nausea. Last Colonoscopy: none. The patient's first colonoscopy is today. Complications: No immediate complications. Procedure: Pre-Anesthesia Assessment: - Prior to the procedure, a History and Physical was performed, and patient medications and allergies were reviewed. The patient is competent. The risks and benefits of the procedure and the sedation options and risks were discussed with the patient. All questions were answered and informed consent was obtained. Patient identification and proposed procedure were verified by the physician in the pre-procedure area. Mental Status Examination: alert and oriented. Airway Examination: normal oropharyngeal airway and neck mobility. Respiratory Examination: clear to auscultation. CV Examination: normal. ASA Grade Assessment: II - A patient with mild systemic disease. After reviewing the risks and benefits, the patient was deemed in satisfactory condition to undergo the procedure. The anesthesia plan was to use monitored anesthesia care (MAC). Immediately prior to administration of medications, the patient was re-assessed for adequacy to receive sedatives. The heart rate, respiratory rate, oxygen saturations, blood pressure, adequacy of pulmonary ventilation, and response to care were monitored throughout the procedure. The physical status of the patient was re-assessed after the procedure. After I obtained informed consent, the scope was passed under direct vision. Throughout the procedure, the patient's blood pressure, pulse, and oxygen saturations were monitored continuously. The Colonoscope was introduced through the anus and advanced to the terminal ileum. The colonoscopy was performed without difficulty. The patient tolerated the procedure well. The quality of the bowel preparation was adequate. The terminal ileum, ileocecal valve, appendiceal orifice, and rectum were photographed. Scope In: 2:03:44 PM Scope Withdrawal Time 0 hours 9 minutes 18 seconds Scope Out: 2:16:56 PM Total Procedure Duration Time 0 hours 13 minutes 12 seconds Findings: The perianal and digital rectal examinations were normal. An area of mildly congested mucosa was found in the rectum, in the sigmoid colon, at the hepatic flexure and in the ascending colon. Biopsies were taken with a cold forceps for histology. Verification of patient identification for the specimen was done. Estimated blood loss was minimal. Patchy mild inflammation characterized by congestion (edema) was found in the terminal ileum. Biopsies were taken with a cold forceps for histology. Verification of patient identification for the specimen was done. Estimated blood loss was minimal. Impression: - Congested mucosa in the rectum, in the sigmoid colon, at the hepatic flexure and in the ascending colon. Biopsied. - Mild inflammation was found in the ileum secondary to ileitis. Biopsied. Recommendation: - Discharge patient to home. - Resume previous diet. - Continue present medications. - Await pathology results. - Repeat colonoscopy for surveillance based on pathology results. Procedure Code(s): --- Professional --- 98489, Colonoscopy, flexible; with biopsy, single or multiple CPT copyright 2021 [employer]. All rights reserved. The codes documented in this report are preliminary and upon lab support tech review may be revised to meet current compliance requirements. Sly Carson DO 03/16/2025 2:25:14 PM This report has been signed electronically. Number of Addenda: 0 Note Initiated On: 03/16/2025 2:01 PM
--- NOTE | 2025-03-16 14:27 | PCM.POST.ANE ---
Anesthesia: Postop Eval I Current Vital Signs Temperature: 98.9 F Pulse Rate: 89 Blood Pressure: 84/52 Respiratory Rate: 16 Pulse Ox: 99 Oxygen Delivery Method: Room Air Assessment Airway patent: Yes Spontaneous unlabored respirations: Yes Mental status: Awake and Calm nausea: No Vomiting: No Anesthesia Complication: No Fluid Hydration Crystalloid volume administer (ml): 700 Total IV fluid infused: 700 Progress Note Anesthesia document: Postop Eval 1 completed: Yes
--- NOTE | 2025-03-16 20:42 | PCM.POSTANE2 ---
Anesthesia Postop Eval I Sum Postop Eval Completion status Anesthesia document: Postop Eval 1 completed: Yes Anesthesia Postop Eval I Summary Anesthesia Postop Eval I Summary: Anesthesia Postop Eval I: Assessment Summary Airway patent Yes 03/16/25 14:28 [email or web address] Spontaneous unlabored Yes 03/16/25 14:28 [email or web address] respirations Mental status Awake,Calm 03/16/25 14:28 [email or web address] nausea No 03/16/25 14:28 [email or web address] Vomiting No 03/16/25 14:28 [email or web address] Anesthesia Postop Eval I: Fluid Summary Crystalloid volume administer 700 03/16/25 14:28 [email or web address] (ml) Colloids volume administered ( ml) Blood Product volume administered (ml) Total IV fluid infused 700 03/16/25 14:28 [email or web address] Anesthesia Postop Eval I: Summary Notes Anesthesia Complication No 03/16/25 14:28 [email or web address] Anesthesia Complication Comment: Post-operative progress note Anesthesia: Postop Eval II Evaluation Mental status: Awake and Calm Pain Level: 0 nausea: No Vomiting: No Complications Anesthesia Complication: No
== END 2025-03-16 14:57 | disposition home or self-care (01) ==
PROVIDERS: Anesthesiology; PCP Family Medicine; Referring Provider Family Medicine; Visit Provider Internal Medicine Gastroenterology
PROC: 0DJD8ZZ Inspection of Lower Intestinal Tract, Via Natural or Artificial Opening Endoscopic (ICD-10-PCS; CPT 45378; principal; 2025-03-16 13:25)
DX: K63.5 Polyp of colon (principal); E10.9 Type 1 diabetes mellitus without complications; K58.0 Irritable bowel syndrome with diarrhea; Z79.51 Long term (current) use of inhaled steroids; K29.80 Duodenitis without bleeding; J45.909 Unspecified asthma, uncomplicated; K21.9 Gastro-esophageal reflux disease without esophagitis; K29.50 Unspecified chronic gastritis without bleeding
CPT/HCPCS: 43239; 45380; 81025; 82962; 88305; 88342; J2405

== ENCOUNTER → 2025-04-26 | Outpatient (CLI) | payer BC, SELFPAY | END | disposition home or self-care (01) | LOC: US 07:29 | PROVIDERS: PCP Family Medicine; Referring Provider Student in an Organized Health Care Education/Training Program; Visit Provider Student in an Organized Health Care Education/Training Program | DX: R10.9 Unspecified abdominal pain (principal) | CPT/HCPCS: 76705 ==

== ENCOUNTER → 2025-05-04 | Outpatient (CLI) | payer BC, SELFPAY ==
--- NOTE | 2025-05-04 10:41 | NM_ITS ---
PROCEDURE: HEPATOBILLIARY IMG W/PHARM INT 05/04/2025 REASON FOR EXAM: ABD PAIN TECHNIQUE: Intravenous Choletec with planar imaging of the abdomen. 1.5 mcg Kinevac intravenously approximately 6 minutes after the radiopharmaceutical with additional anterior imaging and a region of interest drawn around the gallbladder to calculate a time-activity curve. RADIOPHARMACEUTICAL: Mebrofenin DOSE 5.8mCi COMPARISON: None FINDINGS: There is good uptake of the radiopharmaceutical by the liver. Normal gallbladder visualization with the gallbladder identified by 30 minutes. Gallbladder Ejection Fraction: 0 % (Normal is >35%) NM/Hepatobilliary Img w/Pharm Int IMPRESSION: Homogeneous uptake by the liver and excretion into the intra and extrahepatic b iliary ducts. No gallbladder contraction at 29 minutes following the injection of CCK. Reading Location: [id number]
--- NOTE | 2025-05-04 10:41 | NM_ITS ---
PROCEDURE: HEPATOBILLIARY IMG W/PHARM INT 05/04/2025 REASON FOR EXAM: ABD PAIN TECHNIQUE: Intravenous Choletec with planar imaging of the abdomen. 1.5 mcg Kinevac intravenously approximately 6 minutes after the radiopharmaceutical with additional anterior imaging and a region of interest drawn around the gallbladder to calculate a time-activity curve. RADIOPHARMACEUTICAL: Mebrofenin DOSE 5.8mCi COMPARISON: None FINDINGS: There is good uptake of the radiopharmaceutical by the liver. Normal gallbladder visualization with the gallbladder identified by 30 minutes. Gallbladder Ejection Fraction: 0 % (Normal is >35%) NM/Hepatobilliary Img w/Pharm Int IMPRESSION: Homogeneous uptake by the liver and excretion into the intra and extrahepatic b iliary ducts. No gallbladder contraction at 29 minutes following the injection of CCK. Reading Location: [id number]
== END | disposition home or self-care (01) ==
LOC: NM 10:36
PROVIDERS: PCP Family Medicine; Referring Provider Student in an Organized Health Care Education/Training Program; Visit Provider Student in an Organized Health Care Education/Training Program
DX: R10.84 Generalized abdominal pain (principal); R11.0 Nausea; K58.0 Irritable bowel syndrome with diarrhea
CPT/HCPCS: 78227; A9537; J2805

== ENCOUNTER 2025-07-05 05:53 | Day surgery (SDC) | payer BC, SELFPAY ==
--- NOTE | 2025-06-29 12:58 | EKG12_ITS ---
Test Reason : PREOP Blood Pressure : */* mmHG Vent. Rate : 92 BPM Atrial Rate : 92 BPM P-R Int : 164 ms QRS Dur : 76 ms QT Int : 364 ms P-R-T Axes : 72 50 49 degrees QTcB Int : 450 ms Normal sinus rhythm Normal ECG Confirmed by Robert Campbell ([id number]), international editorial producer RENEE GALLARDO ([id number]) on 06/30/2025 7:13:48 AM Referred By: Luis Montelongo Confirmed By: Robert Campbell
[2025-06-29 17:01] LABS: Anion Gap 12 (5-15); BUN 11 mg/dL (4-19); BUN/Creat Ratio 15.7 RATIO (10-20); Calcium,Total 9.3 mg/dL (7.6-11.0); Carbon Dioxide 23.6 mmol/L (21.0-32.0); Chloride 105 mmol/L (98-108); Estimated Creatinine Clearance 121.64 ml/min (50-250); Glucose 110 mg/dL (70-99); Potassium 4.2 mmol/L (3.3-5.1)
[2025-07-05] VITALS (10 sets, daily range): BP systolic 116–130; BP diastolic 68–81; PULSE 93–106; RESP 14–18; TEMP 36.1–37.2; O2SAT 92–100; BMI 29.7
--- OUTSIDE RECORDS SUMMARY | 2025-07-05 05:59 | XMS RPT_ITS | CCD ---
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 [facility] Care Team Providers Care Program Services Planner Name Role Phone No, Physician Unavailable Unavailable KEVIN SHIPLEY Unavailable Unavailable NO, PHYSICIAN Unavailable Unavailable JAXON MEDELLIN Unavailable Unavailable BRI CAMARENA Attending Unavailable BRI CAMARENA Referring Unavailable NO, PHYSICIAN Primary Care Unavailable No, Physician Primary Care Provider Unavailabl e No, Physician Primary Care Provider Unavailabl e NO, PHYSICIAN Primary Care Unavailable YANE GALVAN Attending Unavailable RAMÓNSHEBA SALAZAR Admitting Unava ilable RAMÓNSHEBA Referring Unava ilable NO, PHYSICIAN Primary Care Unavailable SIS CARLTON Attending Unavailable NO, PHYSICIAN Primary Care Unavailable PO GUZMAN Attending Unavailable TERESA COHN Attending Unavailable NO, PHYSICIAN Primary Care Unavailable TERESA COHN Attending Unavailable NO, PHYSICIAN Primary Care Unavailable TERESA COHN Attending Unavailable NO, PHYSICIAN Primary Care Unavailable Alma Chiu MD Primary Care Provider [phone] OLAF GLEZ Attending Unavailable SKYE WU Attending Unavailable IRENA JIMENEZ Attending Unavailable ALMA CHIU A Primary Care Unavailable SOFRANEIRENA Alberts Attending Unavailable XAVIERRANELexus, IRENA M Referring Unavailable ALMA CHIU A Primary Care Unavailable XAVIERRANEIRENA Alberts Attending Unavailable XAVIERRANELexus, IRENA M Referring Unavailable SOFRANEC, IRENA M Attending Unavailable ALMA CHIU A Primary Care Unavailable SOFRANEC, IRENA M Referring Unavailable GEORGIE CHIUORY A Primary Care Unavailable ALMA CHIU A Referring Unavailable SOFRANEC, IRENA M Attending Unavailable GEORGIE CHIUORY A Primary Care Unavailable ALMA CHIU A Referring Unavailable SOFRANEC, IRENA M Attending Unavailable Care Physician, No Primary Primary Care Provider Unavailable Care Physician, No Primary Referring Provider Un available Carol Ann Kumar Attending Provider Yamileth HALL, Dr. Heart Attending Provider Maikol REYNOLDS, Karina Primary Care Provider Maikol REYNOLDS, Karina Referring Provider Dr. Sly Carson DO Other Provider Carol Ann Kumar Referring Provider Carol Ann Kumar Attending Provider Reginald REYNOLDS, Dr. Smith Attending Provider [phone] Luis Montelongo Attending Unavailable Maikol, Chalon Primary Care Unavailable Maikol, Chalon Referring Unavailable AtanasovCarol Ann Attending Unavailable Care Physician, No Primary Primary Care Unava ilable Care Physician, No Primary Referring Unava ilable RowdynasCarol Ann jauregui Attending Unavailable Care Physician, No Primary Primary Care Unava ilable Care Physician, No Primary Referring Unava ilable Maikol, Chalon Referring Unavailable Sly Carson Consulting Unavailable Sly Carson Attending Unavailable Maikol, Chalon Primary Care Unavailable AtanasovCarol Ann Attending Unavailable Maikol, Chalon Primary Care Unavailable Maikol, Chalon Referring Unavailable Maikol, Chalon Referring Unavailable Sly Carson Attending Unavailable Maikol, Chalon Primary Care Unavailable Maikol, Chalon Primary Care Unavailable Luis Montelongo Attending Unavailable Luis Montelongo Referring Unavailable Maikol, Chalon Primary Care Unavailable AtanasovCarol Ann Attending Unavailable AtanasovCarol Ann Referring Unavailable Maikol, Chalon Primary Care Unavailable AtanasovCarol Ann Attending Unavailable AtanasovCarol Ann Referring Unavailable Eleonora Davenport Attending Unavailable Eleonora Davenport Referring Unavailable Care Physician, No Primary Primary Care Unava ilable Allergies Allergy Classification Reported Allergen(s) Allergy Type Date of Onset Reaction(s) Facility (18 sources) acetaminophen; Translations: [ACETAMINOPHEN] Propensity to adverse reactions to drug 3 GI Intolerance [facility] (14 sources) amoxicillin; Translations: [AMOXICILLIN] Propensity to adverse reactions to drug 6 Rash [facility] (4 sources) Penicillins Propensity to adverse reactions to drug 3 [facility] (1 source) ALLERGIES NOT ON FILE; Translations: [ALLERGIES NOT ON FILE] Propensity to adverse reactions (disorder) [facility] (1 source) Acetaminophen Drug Allergy 5 [facility] (1 source) Amoxicillin Drug Allergy 5 [facility] Medications Current Medications Medication Drug Class(es) Dates Sig (Normalized) Sig (Original) [id number] actuat albuterol 0.09 mg/actuat metered dose inhaler (14 sources) beta2-Adrenergic Agonist Start: 06-10-2024 Albuterol Sulfate 90 mcg/actuation HFA aerosol inhaler Active 1 NMA INHALATION ONCE June 10, 2024 12:00am take 2.5 mg by inhal ation every six hours as needed albuterol (2.5 MG/3ML) 0.083% IN inhalation solution Take 3 mL by nebulization every 6 hours as needed. Active take 2 puff(s) by in halation every four hours as needed for wheezing albuterol 90 mcg/actuation inhaler Inhal e 2 puffs every 4 (four) hours as needed for wheezing. 0 Active take 2 puff(s) by in halation every four hours as needed for wheezing albuterol 90 mcg/actuation inhaler Inhal e 2 puffs every 4 (four) hours as needed for wheezing. 0 Active albuterol 90 mcg /actuation inhaler Inhale 2 puffs every 4 (four) hours as needed for wheezing. Active atropine sulfate 0.025 mg / diphenoxylate hydrochloride 2.5 mg oral tablet (10 sources) Anticholinergic, Cholinergic Muscarinic Antagonist, Antidiarrheal Start: 12-31-2024 Diphenoxylate-Atropine (Lomotil) 2.5-0.025 mg tablet Active 1 {tbl} PO TWICE A DAY as needed for diarrhea 14 1 December 31, 2024 12:00am Start: 05-06-2024 End: 06-06-2024 Diphenoxylate-Atropine (Lomo til) 2.5-0.025 mg tablet Discontinued 1 {tbl} PO 4 TIMES DAILY as needed for diarrhea 20 5 0 May 06, 2024 11:55pm June 06, 2024 1:52am Diarrhea Diarrhea, unspecified beclomethasone (5 sources) Corticosteroid take 1 puff(s) by inhalation twice daily beclomethasone (QVAR) 80 mcg/actuation inhaler Inhale 1 puff 2 (two) times a day. 0 Active take 1 puff(s) by inhalation twi ce daily beclomethasone (QVAR) 80 mcg/actuation inhaler Inhale 1 puff 2 (two) times a day. 0 Active Blood-Glucose Transmitter device (5 sources) Start: 05-07-2024 Blood-Glucose Transmitter device Active [facility] May 07, 2024 12:00am 60 actuat budesonide 0.16 mg/actuat / formoterol fumarate 0.0045 mg/actuat metered dose inhaler (4 sources) Corticosteroid, beta2-Adrenergic Agonist take 2 puff(s) by inhalation every twelve hours budesonide-formote rol 160-4.5 mcg/puff IN AERO Inhale 2 puffs every 12 hours. Active cloNIDine hydrochloride 0.2 mg oral tablet (9 sources) Central alpha-2 Adrenergic Agonist Start: 06-10-2024 take 1 tablet by mouth at bedtime Clonidine Hcl 0.2 mg tablet Active 0.2 mg PO AT BEDTIME June 10, 2024 12:00am cloNIDine 0.1 MG tablet as needed. Active Continuous Glucose Sensor (D Splitom G7 Sensor) [facility] (2 sources) Start: 03-08-2025 Start: 10-16-2024 End: 03-08-2025 Drug or medicament (substance) (1 source) estradiol cypionate 5 mg/ml injectable solution (4 sources) Estrogen estradiol cypion ate (DEPO-ESTRADIOL) 5 mg/mL injection Inject into the shoulder, thigh, or buttocks every 28 days. 0 Active 30 actuat fluticasone furoate 0.1 mg/actuat / vilanterol 0.025 mg/actuat dry powder inhaler (5 sources) Corticosteroid, beta2-Adrenergic Agonist Start: 06-10-2024 Fluticasone Furoate-Vilanterol (Breo Ellipta) 100-25 mcg/dose blister with device Active 1 NMA INHALATION DAILY June 10, 2024 12:00am glucagon 3 mg nasal powder (4 sources) Antihypoglycemic Agent Start: 12-29-2024 Glucagon (Baqsimi Two Pack) 3 MG/DOSE Powder 3 mg by Nasal route as needed (hypoglycemia). Dx. E10.65, E10.649 2 Each 12/29/2024 Active Start: 01-16-2024 Glucagon (Baqs imi Two Pack) 3 MG/DOSE Powder 3 mg by Nasal route as needed (hypoglycemia). Dx. E10.65, E10.649 2 Each 01/16/2024 Active hyoscyamine sulfate 0.125 mg oral tablet (6 sources) Start: 11-27-2024 Hyoscyamine Bolden lfate 0.125 mg tablet Active 0.125 mg PO 2 to 4 times per day as needed for dyspepsia November 27, 2024 1:00am 3 ml insulin glargine 100 unt/ml pen injector (5 sources) Insulin Analog Start: 01-16-2024 End: 03-08-2025 insulin glargine (Lantus SoloStar) 100 UNIT/ML Solution Pen-injector injection As directed up to 50 units daily in the event of pump failure DxE10.65 please hold for patient to request 15 mL 6 03/08/2025 Active insulin aspart, human 100 unt/ml injectable solution (20 sources) Insulin Analogue Start: 05-07-2024 Insulin Aspar t U-100 (Insulin Aspart U-100 100 Unit/Ml Subcutaneous Solution) 100 unit/mL solution Active 100 U SC DAILY May 07, 2024 12:00am Start: 01-16-2024 End: 03-08-2025 insulin aspart 100 UNIT/ML S olution Pen-injector injection As directed with meals and snacks up to 50 units daily DxE10.65 please hold for patient to request 15 mL 6 03/08/2025 Active Start: 01-16-2024 End: 03-08-2025 Insulin Aspart (NovoLOG) 100 UNIT/ML injection as directed up to 100 units/day per insulin pump DxE10.65 30 mL 9 03/08/2025 03/08/2025 Discontinued (Reorder) insulin aspart ( NovoLOG) 100 unit/mL injection Inject under the skin. 0 Active levonorgestrel 0.761341 mg/hr intrauterine system (9 sources) Progestin, Progestin-containing Intrauterine Device Start: 06-10-2024 Levonorgestrel (Kyleena) 17.5 mcg/24 hr (5 yrs) 19.5 mg intrauterine device Active 1 NMA INTRA-UTER ONCE June 10, 2024 12:00am as a single dose Levonorgestrel ( Kyleena) 19.5 MG IUD 1 Intra Uterine Device by Intrauterine route Once. Active 1 ml medroxyPROGESTERone acetate 150 mg/ml injection (5 sources) Progestin medroxyPROGESTER one (DEPO-PROVERA) 150 mg/mL injection Inject 150 mg into the shoulder, thigh, or buttocks every 3 (three) months. 0 Active melatonin 10 mg oral capsule (5 sources) Start: 2024 take 1 capsule by mouth at bedtime as needed for sleep Melatonin 10 mg capsule Active 10 mg PO AT BEDTIME as needed for sleep March 11, 2025 12:00am montelukast 10 mg oral tablet (8 sources) Leukotriene Receptor Antagonist take 1 tablet by mouth once daily montelukast 10 MG PO TABS Take 1 tablet by mouth daily. Active omeprazole 40 mg delayed release oral capsule (9 sources) Proton Pump Inhibitor Start: 2024 take 1 capsule by mouth once daily Omeprazole 40 mg capsule,delayed release(DR/EC) Active 40 mg PO daily 30 March 25, 2025 12:00am take 1 capsule by mouth once naveen ly omeprazole (PRILOSEC) 20 MG capsule Take 20 mg by mouth daily. 0 Active ondansetron 4 mg disintegrating oral tablet (5 sources) Serotonin-3 Receptor Antagonist Start: 01-28-2025 End: 03-08-2025 Ondansetron 4 MG Tab Dispersible tablet dissolve 1 tablet ON TONGUE every 8 hours if needed for nausea OR vomiting ASSOCIATED WITH SIGNS/SYMPTOMS OF DKA 30 tablet 03/08/2025 Active Start: 01-16-2024 take 1 tablet by yuri th every eight hours as needed Ondansetron 4 MG Tab Dispersible tablet Take 1 tablet by mouth every 8 hours as needed. For nausea associated with signs/symptoms of DKA DxE10.65 30 tablet 11 01/16/2024 Active UNKNOWN (4 sources) Completed/Discontinued Medications Medication Drug Class(es) Dates Sig (Normalized) Sig (Original) Barium Sulfate 0.1 % (W/V), 0.1 % (W/W) Oral Suspension (1 source) Start: 04-02-2018 End: 04-02-2018 barium (VOLUMEN) 0.1 % suspension 1,350 mL colestipol hydrochloride 1000 mg oral tablet (16 sources) Bile Acid Sequestrant Start: 07-06-2024 End: 01-26-2025 Colestipol 1 gram tablet Discontinued 4 g PO TWICE A DAY 240 30 2 September 07, 2024 5:57pm January 26, 2025 7:43am Start: 07-01-2024 Colestid 1 g t ablet Take 4 tablets by mouth as needed. 07/01/2024 Active Continuous Blood Gluc Sensor (Dexcom G6 Sensor) Misc (3 sources) Start: 12-03-2023 End: 05-11-2024 Continuous Blood Gluc Sensor (Dexcom G6 Sensor) Misc 12/03/2023 05/11/2024 Discontinued Continuous Blood Gluc Transm it (Dexcom G6 Transmitter) Misc (3 sources) Start: 12-03-2023 End: 05-11-2024 Continuous Blood Gluc Transm it (Dexcom G6 Transmitter) Misc 12/03/2023 05/11/2024 Discontinued Continuous Glucose Sensor (Dexcom G6 Sensor) Misc (4 sources) Start: 10-12-2024 End: 03-08-2025 Continuous Glucose Sensor (D excom G6 Sensor) Misc Indications: Type 1 diabetes mellitus with hyperglycemia Inject 1 Each under the skin every 10 days. Dx E10.65; E10.649 9 Each 10/12/2024 03/08/2025 Discontinued Start: 04-20-2024 End: 10-11-2024 Continuous Glucose Sensor (D excom G6 Sensor) Misc Inject 1 Each under the skin every 10 days. Dx E10.65; E10.649 9 Each 04/20/2024 10/11/2024 Discontinued (Reorder) Start: 04-20-2024 Continuous Glu cose Sensor (Dexcom G6 Sensor) Misc Inject 1 Each under the skin every 10 days. Dx E10.65; E10.649 9 Each 04/20/2024 Active Continuous Glucose Transmitt er (Dexcom G6 Transmitter) Misc (4 sources) Start: 10-12-2024 End: 03-08-2025 Continuous Glucose Transmitt er (Dexcom G6 Transmitter) Misc Indications: Type 1 diabetes mellitus with hyperglycemia 1 EACH BY INSTRUCTED ROUTE EVERY 90 DAYS 1 Each 3 10/12/2024 03/08/2025 Discontinued Start: 04-20-2024 End: 08-04-2024 Continuous Glucose Transmitt er (Dexcom G6 Transmitter) Misc 1 Each by Instructed route every 90 Days. Dx E10.65; E10.649 1 Each 04/20/2024 08/04/2024 Discontinued Start: 04-20-2024 Continuous Glu cose Transmitter (Dexcom G6 Transmitter) Misc 1 Each by Instructed route every 90 Days. Dx E10.65; E10.649 1 Each 04/20/2024 Active dicyclomine hydrochloride 10 mg oral capsule (15 sources) Anticholinergic Start: 11-26-2024 End: 12-31-2024 take 1 capsule by mouth twice daily Dicyclomine 10 mg capsule Discontinued 10 mg PO TWICE A DAY 60 2 November 26, 2024 1:00am December 31, 2024 1:09pm Start: 06-10-2024 End: 12-31-2024 take 1 tablet by mouth three times daily as needed for pain Dicyclomine 20 mg tablet Discontinued 20 mg PO THREE TIMES A DAY as needed for abdominal pain 60 1 September 29, 2024 2:10pm December 31, 2024 1:09pm escitalopram 5 mg oral tablet (3 sources) Serotonin Reuptake Inhibitor Start: 05-27-2023 End: 09-08-2024 escitalopram 5 MG tablet 05/27/2023 09/08/2024 Discontinued iopamidol (1 source) Radiographic Contrast Agent Start: 04-02-2018 End: 04-02-2018 iopamidol (ISOVUE-370) 76 % injection 75 mL methylPREDNISolone 4 mg oral tablet (3 sources) Corticosteroid Start: 01-09-2024 End: 09-08-2024 methylPREDNIsolone 4 MG Tab Therapy Pack tablet TAKE 6 TABLETS ON DAY 1 DIRECTED ON PACKAGE AND DECREASE BY 1 TAB EACH DAY FOR A TOTAL OF 6 DAYS 01/09/2024 09/08/2024 Discontinued QUEtiapine 25 mg oral tablet (3 sources) Atypical Antipsychotic Start: 09-16-2023 End: 09-08-2024 take 0.5-1 tablets by mouth once daily in the evening for sleep QUEtiapine 25 MG tablet take 1/2 to 1 tablet by mouth every evening if needed for sleep 09/16/2023 09/08/2024 Discontinued rifAXIMin 550 mg oral tablet (10 sources) Rifamycin Antibacterial Start: 02-04-2025 End: 03-11-2025 take 1 tablet by mouth three times daily Rifaximin 550 mg tablet Discontinued 550 mg PO THREE TIMES A DAY 42 14 2 February 04, 2025 12:00am March 11, 2025 1:01pm Start: 06-16-2024 End: 12-31-2024 take 1 tablet by mouth three times daily Rifaximin 550 mg tablet Discontinued 550 mg PO THREE TIMES A DAY 42 2 June 16, 2024 12:00am December 31, 2024 1:08pm IBS-D sucralfate 1000 mg oral tablet (3 sources) Aluminum Complex Start: 05-24-2023 End: 09-08-2024 Sucralfate 1 g tablet as needed. 05/24/2023 09/08/2024 Discontinued Problems Active Problems Problem Classification Problem Date Documented Da te Episodic/Chronic Abdominal pain (14 sources) Abdominal pain; Translations: [Unspecified abdominal pain] Onset: 04-29-2025 06-14-2024 Episodic Administrative/social admission (5 sources) Patient encounter status; Translations: [Encounter for pre-employment examination] 12-30-2023 Episodic Biliary tract disease (3 sources) Biliary dyskinesia; Translations: [Other specified diseases of gallbladder] Onset: 05-17-2025 05-17-2025 Episodic Diabetes mellitus with complications (18 sources) Hyperglycemia due to type 1 diabetes mellitus; Translations: [Type 1 diabetes mellitus with hyperglycemia] Onset: 01-16-2024 05-11-2024 Chronic Diabetes mellitus without complication (13 sources) Type 1 diabetes mellitus; Translations: [Type 1 diabetes mellitus with hypoglycemia without coma] Onset: 01-16-2024 05-11-2024 Chronic Diabetes mellitus without complication (5 sources) Insulin pump present; Translations: [Presence of insulin pump (external) (internal)] Onset: 01-16-2024 01-16-2024 Episodic Esophageal disorders (2 sources) Gastro-esophageal reflux disease without esophagitis; Translations: [Gastro-esophageal reflux disease without esophagitis] Onset: 03-26-2018 Chronic Fluid and electrolyte disorders (5 sources) Mild dehydration; Translations: [Dehydration] 05-15-2024 Episodic Nutritional deficiencies (4 sources) Vitamin D deficiency; Translations: [Vitamin D deficiency, unspecified] Onset: 01-16-2024 01-16-2024 Chronic Other gastrointestinal disorders (20 sources) Irritable bowel syndrome with diarrhea; Translations: [Irritable bowel syndrome with diarrhea] Onset: 04-01-2025 06-16-2024 Chronic Other gastrointestinal disorders (2 sources) Swollen abdomen; Translations: [Diarrhea] Episodic Other gastrointestinal disorders (15 sources) Diarrhea; Translations: [Diarrhea, unspecified] 03-16-2025 Episodic Past or Other Problems Problem Classification Problem Date Documented Da te Episodic/Chronic Nausea and vomiting (16 sources) Nausea; Translations: [Nausea] Onset: 03-26-2018 12-31-2024 Episodic Other gastrointestinal disorders (2 sources) Diarrhea, unspecified; Translations: [Diarrhea, unspecified] Onset: 04-01-2025 Episodic Results Test Name Value Interpretation Reference Range Facility 12 Lead EKGon 06-29-2025 12 Lead EKG [facility] [address] [place] [address] 12 Lead EKG 06/29/25 1308 MR#: [id number] Acct: [id number] Name: SHANI HONG Rep #: [id number] : 1995 From: Olaf Campbell MD Attending Dr: Dr. Luis Montelongo MD Status: PRE [facility] [place]: John Cisneros MD Date: 06/29/25 [place] [facility] [place]: F C Admitted: Test Reason : PREOP Blood Pressure : */* mmHG Vent. Rate : 92 BPM Atrial Rate : 92 BPM P-R Int : 164 ms QRS Dur : 76 ms QT Int : 364 ms P-R-T Axes : 72 50 49 degrees QTcB Int : 450 ms Normal sinus rhythm Normal ECG Confirmed by Olaf Campbell ([id number]), sports editor IRENA GALLARDO ([id number]) on 06/30/2025 7:13:48 AM Referred By: Luis Montelongo Confirmed By: Olaf Campbell 06/30/25 0713 Date Olaf Campbell MD CC: Dr. John Cisneros MD; Dr. Luis Montelongo MD; Dr. Karina Lassiter MD Signed Normal [facility] Basic Metabolic Profile (BMP )on 06-29-2025 BUN/CRE 15.7 RATIO Normal 10-20 [facility] Comment on above: Performed By: #### L 500.2500, L501.9985 #### [facility] [address] [place], [address] Calcium [Mass/Vol] 9.3 mg/dL Normal 7.6-11.0 [facility] Comment on above: Performed By: #### L 500.2500, L501.9985 #### [facility] [address] [place], [address] Chloride [Moles/Vol] 105 mmol/L Normal 98-108 [facility] Comment on above: Performed By: #### L 500.2500, L501.9985 #### [facility] [address] [place], [address] CO2 [Moles/Vol] 23.6 mmol/L Normal 21.0-32.0 [facility] Comment on above: Performed By: #### L 500.2500, L501.9985 #### [facility] [address] [place], [address] Creatinine [Mass/Vol] 0.67 mg/dL Low 0.70-1.20 [facility] Comment on above: Performed By: #### L 500.2500, L501.9985 #### [facility] [address] [place], [address] ECRCL 121.64 ml/min Normal 50-250 [facility] Comment on above: Performed By: #### L 500.2500, L501.9985 #### [facility] [address] [place], [address] GAP 12 Normal 5-15 [facility] Comment on above: Performed By: #### L 500.2500, L501.9985 #### [facility] [address] [place], [address] GFR/1.73 sq M.predicted among non-blacks MDRD (S/P/Bld) [Vol rate/Area] 122 mL/min/{1.73_m2} Normal >60 [facility] Comment on above: Result Comment: mL/m in/1.73m2 CKD-EPI Creatinine Equation (2020) Performed By: #### L 500.2500, L501.9985 #### [facility] [address] [place], [address] Glucose [Mass/Vol] 110 mg/dL High 70-99 [facility] Comment on above: Performed By: #### L 500.2500, L501.9985 #### [facility] [address] [place], [address] Potassium [Moles/Vol] 4.2 mmol/L Normal 3.3-5.1 [facility] Comment on above: Performed By: #### L 500.2500, L501.9985 #### [facility] [address] [place], [address] Sodium [Moles/Vol] 141 mmol/L Normal 133-145 [facility] Comment on above: Performed By: #### L 500.2500, L501.9985 #### [facility] [address] [place], [address] Urea nitrogen [Mass/Vol] 11 mg/dL Normal 4-19 [facility] Comment on above: Performed By: #### L 500.2500, L501.9985 #### [facility] [address] [place], [address] Celiac Disease Profileon IMMUNOGLOB A QN Normal [facility] Comment on above: Result Comment: JALEESA ENT SAID SHE DID NOT NEED THIS DONE Performed By: #### L 3410.2400 #### [facility] [address] [place], [address] tTG IGA Normal [facility] Comment on above: Result Comment: JALEESA ENT SAID SHE DID NOT NEED THIS DONE Performed By: #### L 3410.2400 #### [facility] [address] [place], [address] Hemoglobin A1con 06-29-2025 HbA1c (Bld) [Mass fraction] 5.8 % High <=5.6 [facility] Comment on above: Result Comment: Norm al < 5.7 % Prediabetic 5.7 - 6.4 % Diabetic >or= 6.5 % Please note range changes. Performed By: #### L 500.2500, L501.9985 #### [facility] [address] [place], [place], [address] Surgery Visit Reporton 05-17 Surgery Visit Report [facility] [address] [place] [address] OFFICE VISIT Date of Service: 05/17/25 MR#: [id number] Acct: [id number] Name: SHANI HONG Rep #: [id number] : 1995 Provider: Dr. Luis gillespie MD Age/Sex: 30/F Location: [facility] Status: Signed Intake Vital Signs 03/16/25 12:49 05/17/25 14:53 Height 5 ft 3 in 5 ft 3 in Weight: 169 lb BMI 29.9 BP 134/82 H Blood Pressure Location Rt brachial Position Sitting Respiration 16 Intake Visit Reasons: GALLBLADDER Chief Complaint: abn hida scan Land Use [employer] Required: No Is patient in pain?: No Allergies acetaminophen Adverse Reaction (Mild, Verified 05/17/25 14:54) Nausea/Vom/Diarrhea amoxicillin Adverse Reaction (Mild, Verified 05/17/25 14:54) Nausea/Vom/Diarrhea Medications ???Medication ???Instructions ???Recorded ???Confirmed ???Type blood-glucose transmitter (Dexcom 05/07/24 05/17/25 History G6 Transmitter device) insulin aspart U-100 100 unit/mL 100 unit subcut DAILY 05/07/24 History subcutaneous solution (Novolog U-100 Insulin aspart) albuterol sulfate 90 mcg/actuation 1 inh inhalation ONCE 06/10/24 0 05/17/25 History aerosol inhaler clonidine HCl 0.2 mg tablet 0.2 mg PO QHS 06/10/24 05/17/25 Hi story fluticasone furoate 100 1 inh inhalation DAILY 06/10/24 History mcg-vilanterol 25 mcg/dose inhalation powder (Breo Ellipta) levonorgestrel 17.5 mcg/24 hr (up 1 device intrauterine ONCE 05/17/25 History to 5 yrs) 19.5mg intrauterine device (Kyleena) hyoscyamine sulfate 0.125 mg tablet 0.125 mg PO BID-QID PRN dyspeps ia 11/27/24 05/17/25 Rx #30 tabs diphenoxylate-atropin e 2.5 1 tab PO BID PRN diarrhea #14 tabs 12/31/24 05/17/25 Rx mg-0.025 mg tablet (Lomotil) colestipol 1 gram tablet 4 g (4 x 1 gram) PO BID 1 month 05/17/25 Rx #240 tabs melatonin 10 mg capsule 10 mg PO QHS PRN sleep 03/11/25 History omeprazole 40 mg capsule,delayed 40 mg PO QDAY #30 caps 03/25/25 Rx release Have you fallen in the past year?: No PFSH Medical History Diarrhea Anxiety Alcohol use Insulin dependent diabetes mellitus History of renal disease Low iron Restless legs Migraine headache History of ulceration Gastric reflux Shortness of breath on exertion Non-smoker IBS (irritable bowel syndrome) Asthma Type 1 diabetes Physical exam, pre-employment Surgical History Hx of colonoscopy Hx of toe surgery History of adenoidectomy Hx of tonsillectomy S/P nasal surgery Family History Mother Ulcerative colitis Social History Smoking Status: Never smoker HPI HPI HPI: Patient is a 30-year-old female with biliary dyskinesia. Patient notes that she has been having diarrhea as well as epigastric discomfort with fatty meals. She reports that she has cramping as well. She has been getting worked up for this by GI and they ordered a HIDA which showed a 0% ejection fraction. ROS General General: Yes fatigue; No weight change, appetite, colon cancer, breast cancer or weakness HEENT HEENT: No difficulty swallowing, eye injury, eye surgery, swollen glands or hoarseness Endo Endocrine: Yes diabetes mellitus; No thyroid disease, thyroid cancer, Hair loss, heat intolerance or cold intolerance Skin Skin: No rash or changing moles Breast Breast: No left breast lump, right breast lump, nipple discharge, breast pain, abnormal mammogram, abnormal US or breast enlargement Musc Musculoskeletal: No back problems, arthritis, rheumatoid arthritis, gout or joint pain Cardio Cardiovascular: No murmur, pacemaker, heart disease, atrial fibrillation, high blood pressure, heart attack, heart stent, palpitations, shortness of breath with exertion or chest pain Psych Psychiatric: Yes anxiety; No depression or hearing voices Resp Respiratory: Yes shortness of breath, No sleep apnea, No cough, No COPD, Yes asthma, No emphysema and No wheezing Gastro Gastrointestinal: Yes abdominal pain, Yes nausea or vomiting, Yes diarrhea, Yes constipation, No blood in stool, Yes acid reflux, No hemorrhoids, No ulcers, Yes gallbladder problem and No black,tarry stools Mani Hematologic: No blood thinners, No blood disorders, No bleeding, No anemia and No blood clots Neuro Neurologic: No system reviewed and no additional complaints, except as documented, No as per HPI, No abnormal gait, No abnormal hearing, No abnormal movements, No abnormal speech, No behavioral changes, No burning sensations, No confusion, No convulsi (more content not included)... Normal [facility] Hepatobilliary Img w/Pharm I nton 05-04-2025 Hepatobilliary Img w/Pharm Int [facility] Imaging Services [address] [place] [address] [id number] Hepatobilliary Img w/Pharm Int MR#: [id number] Acct: [id number] Name: SHANI HONG JAMIL Rep #: [id number] : 1995 F 30 From: Michael gayle MD PCP: Dr. Karina Lassiter MD Status: REG CLI Study: Hepatobilliary Img w/Pharm Int Date of Exam: 0 05/04/25 Exam# [id number] Ordering Dr: Carol Ann Alonzo PROCEDURE: HEPATOBILLIARY IMG W/PHARM INT 05/04/2025 REASON FOR EXAM: ABD PAIN TECHNIQUE: Intravenous Choletec with planar imaging of the abdomen. 1.5 mcg Kinevac intravenously approximately 6 minutes after the radiopharmaceutical with additional anterior imaging and a region of interest drawn around the gallbladder to calculate a time-activity curve. RADIOPHARMACEUTICAL: Mebrofenin DOSE 5.8mCi COMPARISON: None FINDINGS: There is good uptake of the radiopharmaceutical by the liver. Normal gallbladder visualization with the gallbladder identified by 30 minutes. Gallbladder Ejection Fraction: 0 % (Normal is >35%) NM/Hepatobilliary Img w/Pharm Int IMPRESSION: Homogeneous uptake by the liver and excretion into the intra and extrahepatic biliary ducts. No gallbladder contraction at 29 minutes following the injection of CCK. Reading Location: [id number] CC: Dr. Karina Lassiter MD; GHANSHYAM Bartlett Fertilizer Mixer: Signed Normal [facility] Abdomen Limitedon 04-26-2025 Abdomen Limited [facility] Imaging Services [address] [place] [id number] Abdomen Limited MR#: [id number] Acct: [id number] Name: SHANI HONG JAMIL Rep #: [id number] : 1995 F 30 From: Mohini Oliva PCP: Dr. Karina Lassiter MD Status: REG CLI Study: Abdomen Limited Date of Exam: 04/26/25 Exam# [id number] Ordering Dr: Carol Ann Alonzo PROCEDURE: ABDOMEN LIMITED 04/26/2025 REASON FOR EXAM: ABD PAIN TECHNIQUE: ABDOMEN LIMITED COMPARISON: CT abdomen and pelvis study dated 07/07/2024 FINDINGS: Liver: The liver measures 16 cm in length. Contour and echogenicity are within normal limits. No intrahepatic masses or intrahepatic biliary ductal dilatation is noted. There is hepatopetal flow. Flow is seen in the hepatic veins. Gallbladder: Gallbladder measures 7.2 cm. There are no stones or sludge seen within the gallbladder. Gallbladder wall is not thickened measuring 2 mm. There was a negative sonographic Pool sign. There is no pericholecystic fluid. Common bile duct measures 2 mm. Common bile duct: 2 mm Pancreas: Pancreatic size contour and echogenicity are within normal limits. No pancreatic masses are seen. Kidneys: The right kidney measures 11.3 x 4.2 x 5.3 cm . The cortical thickness measures 1.5 cm. Size contour echogenicity are within normal limits. There are no stones, masses or hydronephrosis. US/Abdomen Limited IMPRESSION: Stable right upper quadrant abdominal ultrasound examination. Reading Location: [id number] CC: Dr. Kraina Lassiter MD; GHANSHYAM Bartlett Fertilizer Mixer: Signed Normal [facility] Gastroenterology Visit Repor ton 04-01-2025 Gastroenterology Visit Report [facility] [address] [place] [address] OFFICE VISIT Date of Service: 04/01/25 MR#: [id number] Acct: [id number] Name: SHANI HONG Rep #: [id number] : 1995 Provider: GHANSHYAM Bartlett Age/Sex: 30/F Location: [facility] Status: Signed Intake Vital Signs 03/16/25 12:49 Height 5 ft 3 in Intake Visit Reasons: follow up Chief Complaint: loose stools Allergies acetaminophen Adverse Reaction (Mild, Verified 03/16/25 12:46) Nausea/Vom/Diarrhea amoxicillin Adverse Reaction (Mild, Verified 03/16/25 12:46) Nausea/Vom/Diarrhea Nurse's Note: OV 04/01/25 Pt here for f/u and reports loose stools. Continues to take omeprazole daily and colestipol when she feels she needs it. PFSH Medical History (Updated 03/16/25 @ 13:[address] Sly Carson DO) Diarrhea Anxiety Alcohol use Insulin dependent diabetes mellitus History of renal disease Low iron Restless legs Migraine headache History of ulceration Gastric reflux Shortness of breath on exertion Non-smoker IBS (irritable bowel syndrome) Asthma Type 1 diabetes Physical exam, pre-employment Surgical History Hx of colonoscopy Hx of toe surgery History of adenoidectomy Hx of tonsillectomy S/P nasal surgery Family History Mother Ulcerative colitis Social History Smoking Status: Never smoker HPI HPI Chief Complaint: loose stools Details: SHANI HONG, is a 30 F who presents to the office today for f/u. BGI established 8 with painful urgent loose stools starting after course of doxycycline and prednisone for a throat infection. Started on Colestipol Biochemical work up .24; IBD sgi wnl, cbc wnl, cmp wnl, fecal elastase wnl, fecal fat wnl, IGA low, IGG low, calprotectin [address] abd/pelvis 924: Heterogeneous enlargement of the right ovary. Correlation with pelvic sonogram recommended. IUD is seen within the uterus. Moderate amount of fecal material is seen in the colon. Mild splenomegaly. OV 12.10.24 Pt with improved symptoms on colestipol. Taking dicyclomine PRN for abd pain. Happy with improvements Last OV 3.25; Pt has had worsening in her symptoms over the past month. Her abd pain is back. It is in the epigastric region and associated with bloating. She is nausea on most days but does not vomit. She is having loose stools up to 6 times per day. She takes colestipol 4 grams daily. EGD 03.16.25 - Normal esophagus. - Erythematous mucosa in the gastric body. Biopsied. - Duodenitis. Biopsied. Colonoscopy 03.16.25 - Congested mucosa in the rectum, in the sigmoid colon, at the hepatic flexure and in the ascending colon. Biopsied. - Mild inflammation was found in the ileum secondary to ileitis. Biopsied. *Start PPI OV 6.12.25 Pt continues to have flares of loose stool, constipation and abd pain. Pain is in the upper abd. She has nausea but does not vomit. She takes colestipol PRN. She has changed her diet to eating mostly clean foods like fruits, veggies and white meat. ROS Const Constitutional: Positive for fatigue; No fever(s) or weight change ENT ENT: No difficulty swallowing Gastro GI: Positive for abdominal pain, bloating, change in bowel habits, constipation, diarrhea, heartburn, excessive flatus and nausea/dyspepsia; No belching, change in stool character, coffee ground emesis, cramping, difficulty swallowing, feeling full early, incontinent of stools, Vomiting blood/hematemesis, Blood in stool, loose stools, Black,tarry stools, pain with swallowing, vomiting or other Musc Musculoskeletal: No joint pain Skin Skin: No yellowing of the eye or itchy eyes Psych Psychiatric: No anxiety and No depression Endo Endocrine: Positive for fatigue; No weight change Aller/Imm Allergy/Immunologic: No itchy eyes Mani/Lymp Hematologic/Lymphatic : No easy bleeding or easy bruising Exam Const General: cooperative, healthy appearing and comfortable Orientation: alert Resp Effort Inspection: normal respiratory effort Cardio Rate: regular rate Rhythm: regular rhythm GI Inspection: normal to inspection Auscultation: normal bowel sounds Palpation: soft, no hepatosplenomegaly and nontender Assessment and Plan Assessment and Plan (1) Irritable bowel syndrome with diarrhea: Status: Acute Plan: Shani is a 30 yo female pt here today for f/u regarding her constipation, diarrhea and abd pain. She underwent EGD and colonoscopy. EGD showed gastritis and duodenitis. Colonoscopy with normal pathology. She was started on omeprazole 40 mg daily. She continues with loose stools. constipation and upper abd pain (more content not included)... Normal [facility] Bedside Glucoseon 03-16-2025 FINGERSTICK GLU 150 mg/dL High 74-106 [facility] Comment on above: Result Comment: RUFINA FINNEY OF PATIENT CARE PER NURSING PROTOCOL Performed By: #### L 501.080 #### [facility] [address] [place], [address] Colonoscopy Reporton 03-16-2 025 Colonoscopy Report [facility] Medical Records Department [address] [place] [address] Colonoscopy Report MR#: [id number] Acct: [id number] Name: SHANI HONG Rep #: [id number] : 1995 30 From: Sly Carson DO PCP: Dr. Karina Lassiter MD [place] [place] Name: Shani Hong Procedure Date: 03/16/2025 2:01 PM Date of : 1995 Age: 30 Procedure: Colonoscopy Indications: Clinically significant diarrhea of unexplained origin Providers: Sly Carson DO Medicines: Monitored Anesthesia Care Patient Profile: This is a 30 year old female. Refer to note in patient chart for documentation of history and physical. Patient has symptoms of chronic abdominal cramping, chronic epigastric abdominal pain, chronic dyspepsia and chronic nausea. Last Colonoscopy: none. The patient's first colonoscopy is today. Complications: No immediate complications. Procedure: Pre-Anesthesia Assessment: - Prior to the procedure, a History and Physical was performed, and patient medications and allergies were reviewed. The patient is competent. The risks and benefits of the procedure and the sedation options and risks were discussed with the patient. All questions were answered and informed consent was obtained. Patient identification and proposed procedure were verified by the physician in the pre-procedure area. Mental Status Examination: alert and oriented. Airway Examination: normal oropharyngeal airway and neck mobility. Respiratory Examination: clear to auscultation. CV Examination: normal. ASA Grade Assessment: II - A patient with mild systemic disease. After reviewing the risks and benefits, the patient was deemed in satisfactory condition to undergo the procedure. The anesthesia plan was to use monitored anesthesia care (MAC). Immediately prior to administration of medications, the patient was re-assessed for adequacy to receive sedatives. The heart rate, respiratory rate, oxygen saturations, blood pressure, adequacy of pulmonary ventilation, and response to care were monitored throughout the procedure. The physical status of the patient was re-assessed after the procedure. After I obtained informed consent, the scope was passed under direct vision. Throughout the procedure, the patient's blood pressure, pulse, and oxygen saturations were monitored continuously. The Colonoscope was introduced through the anus and advanced to the terminal ileum. The colonoscopy was performed without difficulty. The patient tolerated the procedure well. The quality of the bowel preparation was adequate. The terminal ileum, ileocecal valve, appendiceal orifice, and rectum were photographed. Scope In: 2:03:44 PM Scope Withdrawal Time 0 hours 9 minutes 18 seconds Scope Out: 2:16:56 PM Total Procedure Duration Time 0 hours 13 minutes 12 seconds Findings: The perianal and digital rectal examinations were normal. An area of mildly congested mucosa was found in the rectum, in the sigmoid colon, at the hepatic flexure and in the ascending colon. Biopsies were taken with a cold forceps for histology. Verification of patient identification for the specimen was done. Estimated blood loss was minimal. Patchy mild inflammation characterized by congestion (edema) was found in the terminal ileum. Biopsies were taken with a cold forceps for histology. Verification of patient identification for the specimen was done. Estimated blood loss was minimal. Impression: - Congested mucosa in the rectum, in the sigmoid colon, at the hepatic flexure and in the ascending colon. Biopsied. - Mild inflammation was found in the ileum secondary to ileitis. Biopsied. Recommendation: - Discharge patient to home. - Resume previous diet. - Continue present medications. - Await pathology results. - Repeat colonoscopy for surveillance based on pathology results. Procedure Code(s): --- Professional --- 23318, Colonoscopy, flexible; with biopsy, single or multiple CPT copyright 2021 [employer] [employer]. All rights reserved. The codes documented in this report are preliminary and upon shop coordinator review may be revised to meet current compliance requirements. Sly Carson DO 03/16/2025 2:25:14 PM This report has been signed electronically. Number of Addenda: 0 Note Initiated On: 03/16/2025 2:01 PM 03/16/25 1425 Date Sly Puentes Signature: Date (if indicated) CC: Dr. Karina Lassiter MD; No Primary Care Physician; Sly Carson DO Date Dictated: 03/16/25 1401 Date Transcribed: Fertilizer Mixer: [id number] Signed Normal [facility] EGD Reporton 03-16-2025 EGD Report [facility] Medical Records Department [address] [place] [address] EGD Report MR#: [id number] Acct: [id number] Name: SHANI HONG Rep #: [id number] : 1995 30 From: Sly Carson DO PCP: Dr. Karina Lassiter MD [place] [place] Name: Shani Hong Procedure Date: 03/16/2025 1:44 PM Date of : 1995 Age: 30 Procedure: Upper GI endoscopy Indications: Epigastric abdominal pain, Diarrhea Providers: Sly Carson DO Medicines: Monitored Anesthesia Care Patient Profile: This is a 30 year old female. Refer to note in patient chart for documentation of history and physical. Patient has symptoms of chronic abdominal cramping, chronic epigastric abdominal pain, chronic dyspepsia and chronic nausea. Complications: No immediate complications. Procedure: Pre-Anesthesia Assessment: - Prior to the procedure, a History and Physical was performed, and patient medications and allergies were reviewed. The patient is competent. The risks and benefits of the procedure and the sedation options and risks were discussed with the patient. All questions were answered and informed consent was obtained. Patient identification and proposed procedure were verified by the physician in the pre-procedure area. Mental Status Examination: alert and oriented. Airway Examination: normal oropharyngeal airway and neck mobility. Respiratory Examination: clear to auscultation. CV Examination: normal. ASA Grade Assessment: II - A patient with mild systemic disease. After reviewing the risks and benefits, the patient was deemed in satisfactory condition to undergo the procedure. The anesthesia plan was to use monitored anesthesia care (MAC). Immediately prior to administration of medications, the patient was re-assessed for adequacy to receive sedatives. The heart rate, respiratory rate, oxygen saturations, blood pressure, adequacy of pulmonary ventilation, and response to care were monitored throughout the procedure. The physical status of the patient was re-assessed after the procedure. After obtaining informed consent, the endoscope was passed under direct vision. Throughout the procedure, the patient's blood pressure, pulse, and oxygen saturations were monitored continuously. The Colonoscope was introduced through the mouth, and advanced to the fourth part of the duodenum. Small bowel enteroscopy was deemed necessary. The upper GI endoscopy was accomplished without difficulty. The patient tolerated the procedure well. Scope In: 1:58:12 PM Scope Out: 2:01:42 PM Total Procedure Duration Time 0 hours 3 minutes 30 seconds Findings: The examined esophagus was normal. Patchy mildly erythematous mucosa without bleeding was found in the gastric body. Biopsies were taken with a cold forceps for histology. Verification of patient identification for the specimen was done. Estimated blood loss was minimal. Biopsies were taken with a cold forceps for Helicobacter pylori testing. Verification of patient identification for the specimen was done. Estimated blood loss was minimal. Patchy mild inflammation characterized by congestion (edema) was found in the first portion of the duodenum and in the second portion of the duodenum. Biopsies were taken with a cold forceps for histology. Verification of patient identification for the specimen was done. Estimated blood loss was minimal. Impression: - Normal esophagus. - Erythematous mucosa in the gastric body. Biopsied. - Duodenitis. Biopsied. Recommendation: - Discharge patient to home. - Resume previous diet. - Continue present medications. - Await pathology results. Procedure Code(s): --- Professional --- 29768, Small intestinal endoscopy, enteroscopy beyond second portion of duodenum, not including ileum; with biopsy, single or multiple CPT copyright 2021 [employer] [place] [employer]. All rights reserved. The codes documented in this report are preliminary and upon shop coordinator review may be revised to meet current compliance requirements. Sly Carson DO 03/16/2025 2:22:06 PM This report has been signed electronically. Number of Addenda: 0 Note Initiated On: 03/16/2025 1:44 PM 03/16/25 1422 Date Sly Carson DO Cosigner Signature: Date (if indicated) CC: Dr. Karina Lassiter MD; No Primary Care Physician; Sly Carson, Date Dictated: 03/16/25 1344 Date Transcribed: Fertilizer Mixer: RF Signed Normal [facility] Glucose measurement at bedsi deOrdered By: Sly Carson on 03-16-2025 Glucose [Mass/Vol] 150 mg/dL High 74-106 [facility] Comment on above: MANAGEMENT OF PATIEN T CARE PER NURSING PROTOCOL Immunohistochemical Stainson 03-16-2025 Immunohistochemical Stains -------- Patient Age/Sex Location Account Attending Physician -------- SHANI HONG / EN [id number] Sly Carson, -------- Specimen: [id number] Received: 03/16/25 Status: JOSE MARTIN Conn Num: [id number] Spec Type: EGD BIOPSY Subm Dr: Sly Carson DO HEADER OPERATION: Colonoscopy with biopsies, EGD with biopsies PRE-OP DIAGNOSIS: Nausea, diarrhea, abdominal pain TISSUE SUBMITTED: A- Duodenum biopsy, B- Gastric body biopsy, C- Terminal ileum biopsy, D- Random colon biopsy, E- Rectal biopsy -------- MICROSCOPIC DIAGNOSIS A. Small bowel, duodenum, biopsy: Normal villous architecture with focal Niya gland hyperplasia. Negative for increased intraepithelial lymphocytes. B. Stomach, gastric body, biopsy: Oxyntic mucosa with chronic gastritis. IHC negative for H.pylori organisms. C. Small bowel, terminal ileum, biopsy: Normal villous architecture with prominent mucosal lymphoid aggregates, favor reactive. D. Colon, random, biopsy: Hyperplastic polyp (one fragment). Colonic mucosa with no specific pathologic change (4 fragments). E. Rectum, biopsy: No specific pathologic change. MICROSCOPIC DESCRIPTION Slides are reviewed. All matched controls reacted appropriately. These tests were developed and their performance characteristics determined by [facility]. They may not have been cleared or approved by the U.S. Food and Drug Administration. The FDA has determined that such clearance or approval is not necessary. The above immunohistochemical/d ualISH markers are ordered and reviewed by the Pathologist. GROSS DESCRIPTION A. Received in formalin in a container labeled with the patient's name, date of , and duodenum are 2 dorsey-pink fragments of mucosal tissue measuring 0.4 x 0.2 x 0.2 cm and 0.3 x 0.3 x 0.2 cm. Submitted in toto in A1. B. Received in formalin in a container labeled with the patient's name, date of , and gastric body for H. pylori and path are 2 dorsey-pink fragments of mucosal tissue measuring 0.3 x 0.2 x 0.2 cm and 0.5 x 0.2 x 0.2 cm. Submitted in toto in B1. -------- Patient Age/Sex Location Account Attending Physician -------- SHANI HONG EN [id number] Sly Carson DO -------- C. Received in formalin in a container labeled with the patient's name, date of , and terminal ileum biopsy are 3 dorsey-pink fragments of mucosal tissue ranging from 0.3 x 0.2 x 0.2 cm to 0.5 x 0.2 x 0.2 cm. Submitted in toto in C1. D. Received in formalin in a container labeled with the patient's name, date of , and random colon biopsy are multiple dorsey-pink fragments of mucosal tissue measuring 1.0 x 0.7 x 0.3 cm in aggregate. Submitted in toto in D1. E. Received in formalin in a container labeled with the patient's name, date of , and rectal biopsy are 2 dorsey-pink fragments of mucosal tissue measuring 0.3 x 0.3 x 0.2 cm and 0.4 x 0.3 x 0.2 cm. Submitted in toto in E1. [facility] 03-17-2025 CPT:10569k4,01464 -------- Patient Age/Sex Location Account Attending Physician -------- SHANI HONG EN [id number] Sly Carson DO -------- Signed (signature on file) Dr. Neela Butler MD 03/22/25 1209 -------- Normal [facility] Comment on above: Performed By: #### P LUNA #### [facility] [address] [place], [place], [id number] MR/POSTOscar 03-16-2025 MR/POSTOP.[facility] Medical Records Department [address] [place] [address] Anesthesia Postop Eval I 03/16/25 1427 MR#: [id number] Acct: [id number] Name: BREONNAGREGORY REDMANSHANI JAMIL Rep #: [id number] : 1995 30 From: Marito West PCP: Dr. Karina Lassiter MD Status:[facility] Y Race: C Location: EN Anesthesia: Postop Eval I Current Vital Signs Temperature: 98.9 F Pulse Rate: 89 Blood Pressure: 84/52 Respiratory Rate: 16 Pulse Ox: 99 Oxygen Delivery Method: Room Air Assessment Airway patent: Yes Spontaneous unlabored respirations: Yes Mental status: Awake and Calm nausea: No Vomiting: No Anesthesia Complication: No Fluid Hydration Crystalloid volume administer (ml): 700 Total IV fluid infused: 700 Progress Note Anesthesia document: Postop Eval 1 completed: Yes 03/16/251427 Date Marito Kumar Signature: Date CC: Signed Normal [facility] MR/[id number] 03-16-2025 /POST[address] Medical Records Department [facility] [place] [address] Anesthesia Postop Eval II 03/16/25 204 MR#: [id number] Acct: [id number] Name: SHANI HONG JAMIL Rep #: [id number] : 1995 30 From: John Cisneros MD PCP: Dr. Karina Lassiter MD Status:[facility] [place] Race: C Location: EN Anesthesia Postop Eval I Sum Postop Eval Completion status Anesthesia document: Postop Eval 1 completed: Yes Anesthesia Postop Eval I Summary Anesthesia Postop Eval I Summary: Anesthesia Postop Eval I: Assessment Summary Airway patent Yes 03/16/25 14:28 [email or web address] Spontaneous unlabored Yes 03/16/25 14:28 [email or web address] respirations Mental status Awake,Calm 03/16/25 14:28 [email or web address] nausea No 03/16/25 14:28 [email or web address] Vomiting No 03/16/25 14:28 [email or web address] Anesthesia Postop Eval I: Fluid Summary Crystalloid volume administer 700 03/16/25 14:28 [email or web address] (ml) Colloids volume administered ( ml) Blood Product volume administered (ml) Total IV fluid infused 700 03/16/25 14:28 [email or web address] Anesthesia Postop Eval I: Summary Notes Anesthesia Complication No 03/16/25 14:28 [email or web address] Anesthesia Complication Comment: Post-operative progress note Anesthesia: Postop Eval II Evaluation Mental status: Awake and Calm Pain Level: 0 nausea: No Vomiting: No Complications Anesthesia Complication: No 03/16/252041 Date John Cisneros MD Cosigntoo Signature: Date CC: Signed Normal [facility] ,Urineon 03-16-2025 Beta HCG ( test) Ql (U) Negative Normal [facility] Comment on above: Result Comment: Very dilute urine specimens, as indicated by a low specific gravity, may not contain registered representative levels of hCG. If is still suspected, a first morning urine specimen should be collected 48 hours later and tested. Performed By: #### L [id number] #### [facility] Laboratory [facility] [place], [address] Urine testOrdered By: Celestine Gallego on 03-16-2025 HCG ( test) Ql (U) Negative [facility] Comment on above: Very dilute urine sp ecimens, as indicated by a low specificgravity, may not contain registered representative levels of hCG. If is still suspected, a first morning urinespecimen should be collected 48 hours later and tested. CHEM 6 (LYTES, BUN CREA)on 0 03-08-2025 Anion gap [Moles/Vol] 14 mmol/L 7 - 17 mmol/L [facility] Chloride [Moles/Vol] 106 mmol/L 98 - 10 8 mmol/L [facility] CO2 [Moles/Vol] 27 mmol/L 21 - 31 mmol/L [facility] Creatinine [Mass/Vol] 0.6 mg/dL 0.50 - 1.20 mg/dL [facility] eGFR, CKD-EPI, Female - PINF [facility] Comment on above: Reported eGFR is bas ed on the CKD-EPI 2020 equation using creatinine, age, and sex. Potassium [Moles/Vol] 3.7 mmol/L 3.5 - 5.0 mmol/L [facility] Sodium [Moles/Vol] 143 mmol/L 135 - 145 mmol/L [facility] Urea nitrogen [Mass/Vol] 12 mg/dL 7 - 25 mg/dL [facility] Urea nitrogen/Creatinine [Mass ratio] 20 mg/mg [facility] Anion gap [Moles/Vol] 14 mmol/L Normal 7-17 [facility] Comment on above: Performed By: #### H FP, CHM6, HDLT #### U [facility] (DEFAULT) [address] [place] [address] Chloride [Moles/Vol] 106 mmol/L Normal 98-108 [facility] Comment on above: Performed By: #### H FP, CHM6, HDLT #### U [facility] (DEFAULT) [address] [place] [address] CO2 [Moles/Vol] 27 mmol/L Normal 21-31 [facility] Comment on above: Performed By: #### H FP, CHM6, HDLT #### U [facility] (DEFAULT) [address] [place] [address] Creatinine [Mass/Vol] 0.60 mg/dL Normal 0.50-1.20 [facility] Comment on above: Performed By: #### H FP, CHM6, HDLT #### U [facility] (DEFAULT) [address] [place] [address] eGFR, CKD-EPI, Female > Normal >=60 [facility] Comment on above: Result Comment: Repo rted eGFR is based on the CKD-EPI 2020 equation using creatinine, age, and sex. Performed By: #### H FP, CHM6, HDLT #### U [facility] (DEFAULT) [address] [place] [address] Potassium [Moles/Vol] 3.7 mmol/L Normal 3.5-5.0 [facility] Comment on above: Performed By: #### H FP, CHM6, HDLT #### U [facility] (DEFAULT) [address] [place] [address] Sodium [Moles/Vol] 143 mmol/L Normal 135-145 [facility] Comment on above: Performed By: #### H FP, CHM6, HDLT #### [facility] (DEFAULT) [address] [place] [address] Urea nitrogen [Mass/Vol] 12 mg/dL Normal 7-25 [facility] Comment on above: Performed By: #### H FP, CHM6, HDLT #### U [facility] (DEFAULT) [address] [place] [address] Urea nitrogen/Creatinine [Mass ratio] 20 mg/mg Normal [facility] Comment on above: Performed By: #### H FP, CHM6, HDLT #### [facility] (DEFAULT) [address] [place] [address] HEPATIC FUNCTION PANELon Albumin [Mass/Vol] 4.7 g/dL 3.5 - 5.0 g/dL [facility] ALP [Catalytic activity/Vol] 81 U/L 32 - 126 U/L [facility] ALT [Catalytic activity/Vol] 9 U/L 9 - 48 U/L [facility] AST [Catalytic activity/Vol] 16 U/L 10 - 39 U/L [facility] Bilirubin [Mass/Vol] 0.6 mg/dL NINF - 1.5 mg/dL [facility] Bilirubin.direct [Mass/Vol] 0.1 mg/dL NINF - 0.3 mg/dL [facility] Protein [Mass/Vol] 6.8 g/dL 6.4 - 8.3 g/dL [facility] Albumin [Mass/Vol] 4.7 g/dL Normal 3.5-5.0 [facility] Comment on above: Performed By: #### H FP, CHM6, HDLT #### U [facility] (DEFAULT) [address] [place] [address] ALP [Catalytic activity/Vol] 81 U/L Normal 32-126 [facility] Comment on above: Performed By: #### H FP, CHM6, HDLT #### U [facility] (DEFAULT) [address] [place] [address] ALT [Catalytic activity/Vol] 9 U/L Normal 9-48 [facility] Comment on above: Performed By: #### H FP, CHM6, HDLT #### [facility] (DEFAULT) [address] [place] [address] AST [Catalytic activity/Vol] 16 U/L Normal 10-39 [facility] Comment on above: Performed By: #### H FP, CHM6, HDLT #### [facility] (DEFAULT) [address] [place] [address] Bilirubin [Mass/Vol] 0.6 mg/dL Normal <1.5 [facility] Comment on above: Performed By: #### H FP, CHM6, HDLT #### [facility] (DEFAULT) [address] [place] [address] Bilirubin.indirect [Mass/Vol] 0.1 mg/dL Normal <0.3 [facility] Comment on above: Performed By: #### H FP, CHM6, HDLT #### [facility] (DEFAULT) [address] [place] [address] Protein [Mass/Vol] 6.8 g/dL Normal 6.4-8.3 [facility] Comment on above: Performed By: #### H FP, CHM6, HDLT #### [facility] (DEFAULT) [address] [place] [address] HbA1c (Bld) [Mass fraction]o n 03-08-2025 Interpretation and review of laboratory results Abnormal [facility] LIPID PANEL W CALCULATED LDL on 03-08-2025 Cholesterol [Mass/Vol] 135 mg/dL NINF - 200 mg/dL [facility] Comment on above: [<200 mg/dL: Desirab le] [200-239 mg/dL: Borderline High] [>239 mg/dL: High] Cholesterol in HDL [Mass/Vol] 44 mg/dL 40 - PINF mg/dL [facility] Comment on above: [<40 mg/dL: Low (Hig h Risk)] [>59 mg/dL: High (Low Risk)] Cholesterol in LDL [Mass/Vol] 77 mg/dL 0 - 99 mg/dL [facility] Comment on above: [<100 mg/dL: Optimal ] [100-129 mg/dL: Near Optimal] [130-159 mg/dL: Borderline High] [160-189 mg/dL: High] [>189 mg/dL: Very High] Cholesterol non HDL [Mass/Vol] 91 mg/dL NINF - 130 mg/dL [facility] Cholesterol.total/Chol esterol in HDL [Mass ratio] 3.1 {ratio} NINF - 4.5 [facility] Triglyceride [Mass/Vol] 69 mg/dL NINF - 150 mg/dL [facility] Comment on above: [<150 mg/dL: Desirab le] [150-199 mg/dL: Borderline] [200-499 mg/dL: High] [>500 mg/dL: Very High] Calculated LDL Cholesterol 77 mg/dL Normal 0-99 [facility] Comment on above: Result Comment: [<10 0 mg/dL: Optimal] [100-129 mg/dL: Near Optimal] [130-159 mg/dL: Borderline High] [160-189 mg/dL: High] [>189 mg/dL: Very High] Performed By: #### Y TT #### [facility] (DEFAULT) [address] [address] Cholesterol [Mass/Vol] 135 mg/dL Normal <200 [facility] Comment on above: Result Comment: [<20 0 mg/dL: Desirable] [200-239 mg/dL: Borderline High] [>239 mg/dL: High] Performed By: #### Y TT #### [facility] (DEFAULT) [address] [address] Cholesterol in HDL [Mass/Vol] 44 mg/dL Normal >=40 [facility] Comment on above: Result Comment: [<40 mg/dL: Low (High Risk)] [>59 mg/dL: High (Low Risk)] Performed By: #### Y TT #### [facility] (DEFAULT) [address] [address] Non HDL Cholesterol 91 mg/dL Normal <130 [facility] Comment on above: Performed By: #### Y TT #### [facility] (DEFAULT) [address] [address] Total Cholesterol/HDL Ratio 3.1 Normal <4.5 [facility] Comment on above: Performed By: #### Y TT #### [facility] (DEFAULT) [address] [address] Triglyceride [Mass/Vol] 69 mg/dL Normal <150 [facility] Comment on above: Result Comment: [<15 0 mg/dL: Desirable] [150-199 mg/dL: Borderline] [200-499 mg/dL: High] [>500 mg/dL: Very High] Performed By: #### Y TT #### [facility] (DEFAULT) [address] [place] [address] MICROALBUMIN,RANDOM URINEOrd ered By: Annette Singleton on 03-08-2025 Albumin DL <= 20 mg/L (U) [Mass/Vol] mg/L mg/L [facility] Albumin/Creatinine DL <= 20 mg/L (U) [Ratio] [facility] Comment on above: Not Calculated Creatinine (24H U) [Mass/Vol] 6.74 mg/dL [facility] MICROALBUMIN,RANDOM URINEon 03-08-2025 Albumin DL <= 20 mg/L (U) [Mass/Vol] mg/dL Normal [facility] Comment on above: Performed By: #### Y TT #### [facility] (DEFAULT) [address] [place] [address] Creatinine (U) [Mass/Vol] 6.74 mg/dL Normal [facility] Comment on above: Performed By: #### Y TT #### [facility] (DEFAULT) [address] [place] [address] Microalbumin/Creatinin e Ratio Normal [facility] Comment on above: Result Comment: Not Calculated Performed By: #### Y TT #### [facility] (DEFAULT) [address] [place] [address] No Panel Informationon 03-08 Interpretation and review of laboratory results Normal [facility] POCT HEMOGLOBIN A1Con 2024 HbA1c (Bld) [Mass fraction] 6.1 % Abnormal 4.7 - 5.6 % [facility] TSH W/FT4 REFLEXon Interpretation and review of laboratory results Normal [facility] TSH Qn 0.993 m[IU]/L [facility] TSH 0.993 uIU/mL Normal 0.550-4.780 [facility] Comment on above: Performed By: #### Y TT #### [facility] (DEFAULT) [address] [address] VITAMIN B12on 03-08-2025 Cobalamin (Vitamin B12) [Mass/Vol] 950 pg/mL High 211 - 911 pg/mL [facility] Comment on above: Testing of Methylmal onic Acid and Intrinsic Factor Blocking Antibody are recommended if clinical suspicion for pernicious anemia due to B12 deficiency is high for patients with intermediate B12 levels (211 to 400 pg/mL) to rule out spurious heterophile antibodies. Interpretation and review of laboratory results Abnormal [facility] Cobalamin (Vitamin B12) [Mass/Vol] 950 pg/mL High 211-911 [facility] Comment on above: Result Comment: Test ing of Methylmalonic Acid and Intrinsic Factor Blocking Antibody are recommended if clinical suspicion for pernicious anemia due to B12 deficiency is high for patients with intermediate B12 levels (211 to 400 pg/mL) to rule out spurious heterophile antibodies. Performed By: #### Y TT #### [facility] (DEFAULT) [address] [place] [address] VITAMIN D (25-HYDROXY,TOTAL) on 03-08-2025 25-OH Vitamin D Total 21.9 ng/mL Low 30.0-100.0 [facility] Comment on above: Order Comment: Vitam in D values have been shown to be falsely decreased in lipemic samples and should be interpreted with caution. Result Comment: <10 Deficiency 10-29 Insufficiency 30-100 Optimal Level >100 Possible Toxicity Performed By: #### D 25OH #### [facility] (DEFAULT) [address] [place] [address] Gastroenterology Visit Repor ton 12-31-2024 Gastroenterology Visit Report [facility] [address] [place] [address] OFFICE VISIT Date of Service: 12/31/24 MR#: [id number] Acct: [id number] Name: SHANI HONG JAMIL Rep #: [id number] : 1995 Provider: GHANSHYAM Bartlett Age/Sex: 29/F Location: [facility] Status: Signed Intake Vital Signs 06/06/24 01:49 Height 5 ft 2 in Intake Visit Reasons: 3 M FU Chief Complaint: loose stools Land Use Planner Required: No Allergies acetaminophen Adverse Reaction (Mild, Verified 06/10/24 13:02) Nausea/Vom/Diarrhea amoxicillin Adverse Reaction (Mild, Verified 06/10/24 13:02) Nausea/Vom/Diarrhea Medications ???Medication ???Instructions ???Recorded ???Confirmed ???Type blood-glucose transmitter (Dexcom 05/07/24 06/10/24 History G6 Transmitter device) insulin aspart U-100 100 unit/mL 100 unit subcut DAILY 05/07/24 History subcutaneous solution (Novolog U-100 Insulin aspart) albuterol sulfate 90 mcg/actuation 1 inh inhalation ONCE 06/10/24 0 06/10/24 History aerosol inhaler clonidine HCl 0.2 mg tablet 0.2 mg PO QHS 06/10/24 06/10/24 Hi story fluticasone furoate 100 1 inh inhalation DAILY 06/10/24 History mcg-vilanterol 25 mcg/dose inhalation powder (Breo Ellipta) levonorgestrel 17.5 mcg/24 hr (up 1 device intrauterine ONCE 06/10/24 History to 5 yrs) 19.5mg intrauterine device (Kyleena) colestipol 1 gram tablet 4 g (4 x 1 gram) PO BID 1 month 12/31/24 Rx #240 tabs hyoscyamine sulfate 0.125 mg tablet 0.125 mg PO BID-QID PRN dyspeps ia 11/27/24 12/31/24 Rx #30 tabs diphenoxylate-atropin e 2.5 1 tab PO BID PRN diarrhea #14 tabs 12/31/24 12/31/24 Rx mg-0.025 mg tablet (Lomotil) Nurse's Note: OV 12.31.24 Pt here for f/u and reports she is feeling not well at all. BMs are yellow, liquid, and fluffy in appearance, nausea, abdominal pain, heartburn, gas and bloating. Pt reports dicyclomine made her feel spacey. States colestipol doesnt seem to be helping anymore. Continues hyoscyamine. [facility] Medical History IBS (irritable bowel syndrome) Asthma Type 1 diabetes Physical exam, pre-employment Surgical History History of adenoidectomy Hx of tonsillectomy S/P nasal surgery Family History Mother Ulcerative colitis Social History Smoking Status: Never smoker HPI HPI Chief Complaint: loose stools Details: SHANI HONG, is a 29 F who presents to the office today for f/u. BGI established 06.10.24 with painful urgent loose stools starting after course of doxycycline and prednisone for a throat infection. Started on Colestipol Biochemical work up 06.12.24; IBD sgi wnl, cbc wnl, cmp wnl, fecal elastase wnl, fecal fat wnl, IGA low, IGG low, calprotectin [address] abd/pelvis 07.07.24: Heterogeneous enlargement of the right ovary. Correlation with pelvic sonogram recommended. IUD is seen within the uterus. Moderate amount of fecal material is seen in the colon. Mild splenomegaly. Last OV 12.. Pt with improved symptoms on colestipol. Taking dicyclomine PRN for abd pain. Happy with improvements OV 3..25; Pt has had worsening in her symptoms over the past month. Her abd pain is back. It is in the epigastric region and associated with bloating. She is nausea on most days but does not vomit. She is having loose stools up to 6 times per day. She takes colestipol 4 grams daily. ROS Const Constitutional: Positive for fatigue; No fever(s) or weight change ENT ENT: No difficulty swallowing Gastro GI: Positive for abdominal pain, bloating, change in bowel habits, constipation, diarrhea, heartburn, excessive flatus and nausea/dyspepsia; No belching, change in stool character, coffee ground emesis, cramping, difficulty swallowing, feeling full early, incontinent of stools, Vomiting blood/hematemesis, Blood in stool, loose stools, Black,tarry stools, pain with swallowing, vomiting or other Musc Musculoskeletal: Positive for joint pain Skin Skin: No yellowing of the eye or itchy eyes Psych Psychiatric: No anxiety and No depression Endo Endocrine: Positive for fatigue; No weight change Aller/Imm Allergy/Immunologic: No itchy eyes Mani/Lymp Hematologic/Lymphatic : No easy bleeding or easy bruising Exam Const General: cooperative and comfortable Nutritional Appearance: average body habitus and well nourished HENCA Head: normal to inspection Ears: hearing grossly normal bilaterally Nose: external nose normal Face and sinus: normal facial exam Eyes General: appearance normal, both eyes and all related (more content not included)... Normal [facility] Gastroenterology Visit Repor ton 09-29-2024 Gastroenterology Visit Report [facility] [address] [place] [address] OFFICE VISIT Date of Service: 09/29/24 MR#: [id number] Acct: [id number] Name: SHANI HONG JAMIL Rep #: [id number] : 1995 Provider: GHANSHYAM Bartlett Age/Sex: 29/F Location: [facility] Status: Signed Intake Vital Signs 06/06/24 01:49 Height 5 ft 2 in Intake Visit Reasons: 4 M FU Chief Complaint: f/u Allergies acetaminophen Adverse Reaction (Mild, Verified 06/10/24 13:02) Nausea/Vom/Diarrhea amoxicillin Adverse Reaction (Mild, Verified 06/10/24 13:02) Nausea/Vom/Diarrhea Nurse's Note: OV 09.29.24 Pt here for f/u. Pt reports BM daily, abdominal pain, and nausea. Reports her BMs go from constipation and diarrhea but denies blood in stools and denies vomiting. Continues dicyclomine, and colestipol and finds them helpful. [facility] Medical History IBS (irritable bowel syndrome) Asthma Type 1 diabetes Physical exam, pre-employment Surgical History History of adenoidectomy Hx of tonsillectomy S/P nasal surgery Family History Mother Ulcerative colitis Social History Smoking Status: Never smoker HPI HPI Chief Complaint: f/u Details: SHANI HONG, is a 29 F who presents to the office today for f/u. PMHx of Diabetes Type I BGI established 06.10.24 w/ painful urgent loose stools. Diarrhea starting after treatment with doxycycline and prednisone for a throat infection. She has tried loperamide in the past but gave her blurry vision Biochemical work up 06.12.24; IBD sgi wnl, cbc wnl, cmp wnl, fecal elastase wnl, fecal fat wnl, IGA low, IGG low, calprotectin [address] abd/pelvis 07.07.24: Heterogeneous enlargement of the right ovary. Correlation with pelvic sonogram recommended. IUD is seen within the uterus. Moderate amount of fecal material is seen in the colon. Mild splenomegaly. *Start colestipol for loose stool OV 09.29.24 Pt symptoms have improved since starting colestipol. She is having less episodes of loose stool. She has noticed an increase in nausea when she has not eaten or when she has over eaten. She continues to have some intermittent abdominal pain that is relieved with dicyclomine. Overall, she is happy with the improvements in her symptoms. ROS Const Constitutional: Positive for fatigue; No fever(s) or weight change ENT ENT: No difficulty swallowing Gastro GI: Positive for abdominal pain, bloating, change in bowel habits, diarrhea, heartburn, excessive flatus and nausea/dyspepsia; No belching, change in stool character, coffee ground emesis, constipation, cramping, difficulty swallowing, feeling full early, incontinent of stools, Vomiting blood/hematemesis, Blood in stool, loose stools, Black,tarry stools, pain with swallowing, vomiting or other Musc Musculoskeletal: Positive for restless legs; No joint pain Skin Skin: No yellowing of the eye or itchy eyes Neuro Neurology: Positive for restless legs Psych Psychiatric: Positive for anxiety and No depression Endo Endocrine: Positive for fatigue; No weight change Aller/Imm Allergy/Immunologic: No itchy eyes Mani/Lymp Hematologic/Lymphatic : No easy bleeding or easy bruising Exam Const General: cooperative and comfortable Nutritional Appearance: average body habitus and well nourished HENMT Head: normal to inspection Ears: hearing grossly normal bilaterally Nose: external nose normal Face and sinus: normal facial exam Eyes General: appearance normal, both eyes and all related structures Neck Neck: normal visual inspection Chest Chest palpation inspection: normal inspection of the chest Resp Effort Inspection: normal respiratory effort and able to speak in complete sentences GI Inspection: normal to inspection Palpation: no hepatosplenomegaly Skin General: no rashes or lesions noted Neuro General: patient alert Extrem General: normal to inspection Psych Affect: normal affect Assessment and Plan Assessment and Plan (1) Irritable bowel syndrome with diarrhea: Status: Acute Plan: This is a 29 yo female pt here today for f/u. Pt has been seeing I for chronic loose stool after treatment with Doxycycline for throat infection. Prior work up was unremarkable besides an elevation in the calprotectin. PT has been on colestipol 2 grams per day and feels this has been beneficial to her symptoms. She takes dicyclomine as needed for abdominal pain. She does have some worsening nausea when she has not eaten or when she over eats. Recommended monitoring this. Will consider GES if indicated. We will keep her treatment the same a (more content not included)... Normal [facility] Abdomen/Pelvis WITH Contrast on 07-07-2024 Abdomen/Pelvis WITH Contrast [facility] Imaging Services [address] [place] [address] Abdomen/Pelvis WITH Contrast MR#: [id number] Acct: [id number] Name: SHANI HONG JAMIL Rep #: [id number] : 1995 F 29 From: Michael gayle MD PCP: Care Physician,No Primary Status: REG CLI Study: Abdomen/Pelvis WITH Contrast Date of Exam: Exam# [id number] Ordering Dr: Eleonora Davenport POWER SUPERINTENDENT-C [id number] STUDY: CT ABDOMEN AND PELVIS WITH CONTRAST REASON FOR EXAM: Female, 29 years old. Severe abdominal pain -- IV and PO contrast RADIATION DOSAGE (If Supplied By Facility): CTDIvol = ( 8.73 ) mGy, DLP = ( 536.58 ) mGycm TECHNIQUE: Transaxial images were obtained from the dome of the diaphragm to the symphysis pubis with oral contrast. Oral and amp;amp; IV Readi-CAT and amp;amp; 100mL Isovue-370 was administered. Sagittal and coronal images were reconstructed. Individualized dose optimization techniques were used for this CT. COMPARISON: None. FINDINGS: The visualized lung bases are unremarkable. The visualized portions of the heart are within normal limits. Borderline hepatomegaly. Normal gallbladder and extrahepatic biliary system. There is mild splenomegaly. Normal pancreas. Normal bilateral adrenal glands. Normal right kidney. Normal left kidney. Normal visualized stomach. Normal small intestine. Fecal material is seen throughout the colon. The appendix is visualized and appears normal. Normal abdominal aorta. Normal inferior vena cava. Normal retroperitoneum. Normal urinary bladder. IUD is seen within the uterus. Heterogeneous enlargement of the right ovary measuring 3.2 cm x 3 cm. Correlation with ultrasound of the pelvis recommended. Normal abdominal wall. Normal osseous structures. CT/Abdomen/Pelvis WITH Contrast IMPRESSION: Heterogeneous enlargement of the right ovary. Correlation with pelvic sonogram recommended. IUD is seen within the uterus. Moderate amount of fecal material is seen in the colon. Mild splenomegaly. Electronically Signed: Michael Louie MD at 12:17 EDT Reading Location ID and State: [facility] / [place] , Service support , CC: ANUSHA Davenport; No Primary Care Physician Fertilizer Mixer: Signed Normal [facility] ANTI MICROSOMAL ANTIBODYon 05-11-2024 Anti-TPO Ab (Microsomal Ab) 57.3 IU/mL Normal <60.0 [facility] Comment on above: Performed By: #### Y TT #### [facility] (DEFAULT) [address] [place] [address] CHEM 6 (LYTES, BUN CREA)on 05-11-2024 Anion gap [Moles/Vol] 15 mmol/L Normal 7-17 [facility] Comment on above: Performed By: #### H FP, CHM6, HDLT, IGA #### [facility] (DEFAULT) [address] [place] [address] 82844 Chloride [Moles/Vol] 103 mmol/L Normal 98-108 [facility] Comment on above: Performed By: #### H FP, CHM6, HDLT, IGA #### [facility] (DEFAULT) [address] [place] [address]609 CO2 [Moles/Vol] 27 mmol/L Normal 21-31 [facility] Comment on above: Performed By: #### H FP, CHM6, HDLT, IGA #### [facility] (DEFAULT) [address] [place] [address] 06620 Creatinine [Mass/Vol] 0.63 mg/dL Normal 0.50-1.20 [facility] Comment on above: Performed By: #### H FP, CHM6, HDLT, IGA #### [facility] (DEFAULT) [address] [place] [address] 43688 eGFR, CKD-EPI, Female > Normal >=60 [facility] Comment on above: Result Comment: Repo rted eGFR is based on the CKD-EPI 2020 equation using creatinine, age, and sex. Performed By: #### H FP, CHM6, HDLT, IGA #### [facility] (DEFAULT) [address] [place] [address] 82040 Potassium [Moles/Vol] 4.0 mmol/L Normal 3.5-5.0 [facility] Comment on above: Performed By: #### H FP, CHM6, HDLT, IGA #### [facility] (DEFAULT) [address] [place] [address] 73004 Sodium [Moles/Vol] 141 mmol/L Normal 135-145 [facility] Comment on above: Performed By: #### H FP, CHM6, HDLT, IGA #### [facility] (DEFAULT) [address] [place] [address] 02831 Urea nitrogen [Mass/Vol] 6 mg/dL Low 7-25 [facility] Comment on above: Performed By: #### H FP, CHM6, HDLT, IGA #### [facility] (DEFAULT) [address] [place] [address] 36090 Urea nitrogen/Creatinine [Mass ratio] 10 mg/mg Normal [facility] Comment on above: Performed By: #### H FP, CHM6, HDLT, IGA #### [facility] (DEFAULT) [address] [place] [address] 18890 HEMOGLOBIN A1Con 05-11-2024 Glucose [Mass/Vol] 123 mg/dL Normal [facility] Comment on above: Performed By: #### A 1CB #### [facility] (DEFAULT) [address] [place] [address] 81527 Hemoglobin A1C HPLC 5.9 % High 4.7-5.6 [facility] Comment on above: Performed By: #### A 1CB #### [facility] (DEFAULT) [address] [place] [address] 89065 HEPATIC FUNCTION PANELon Albumin [Mass/Vol] 4.6 g/dL Normal 3.5-5.0 [facility] Comment on above: Performed By: #### H FP, CHM6, HDLT, IGA #### [facility] (DEFAULT) [address] [place] [address] 02631 ALP [Catalytic activity/Vol] 74 U/L Normal 32-126 [facility] Comment on above: Performed By: #### H FP, CHM6, HDLT, IGA #### [facility] (DEFAULT) [address] [place] [address] 90965 ALT [Catalytic activity/Vol] 8 U/L Low 9-48 [facility] Comment on above: Performed By: #### H FP, CHM6, HDLT, IGA #### [facility] (DEFAULT) [address] [place] [address] 38310 AST [Catalytic activity/Vol] 11 U/L Normal 10-39 [facility] Comment on above: Performed By: #### H FP, CHM6, HDLT, IGA #### [facility] (DEFAULT) [address] [place] [address] 47128 Bilirubin [Mass/Vol] 0.5 mg/dL Normal <1.5 [facility] Comment on above: Performed By: #### H FP, CHM6, HDLT, IGA #### [facility] (DEFAULT) [address] [place] [address] 54934 Bilirubin.indirect [Mass/Vol] 0.1 mg/dL Normal <0.3 [facility] Comment on above: Performed By: #### H FP, CHM6, HDLT, IGA #### [facility] (DEFAULT) [address] [place] [address] 05644 Protein [Mass/Vol] 6.3 g/dL Low 6.4-8.3 [facility] Comment on above: Performed By: #### H FP, CHM6, HDLT, IGA #### [facility] (DEFAULT) [address] [place] [address] 02008 IGAon 05-11-2024 IgA [Mass/Vol] 23 mg/dL Low 66-433 [facility] Comment on above: Performed By: #### H FP, CHM6, HDLT, IGA #### [facility] (DEFAULT) [address] [place] [address] 42014 LIPID PANEL W CALCULATED LDL on 05-11-2024 Calculated LDL Cholesterol 65 mg/dL Normal 0-99 [facility] Comment on above: Result Comment: [<10 0 mg/dL: Optimal] [100-129 mg/dL: Near Optimal] [130-159 mg/dL: Borderline High] [160-189 mg/dL: High] [>189 mg/dL: Very High] Performed By: #### H FP, CHM6, HDLT, IGA #### [facility] (DEFAULT) [address] [place] [address] 47492 Cholesterol [Mass/Vol] 117 mg/dL Normal <200 [facility] Comment on above: Result Comment: [<20 0 mg/dL: Desirable] [200-239 mg/dL: Borderline High] [>239 mg/dL: High] Performed By: #### H FP, CHM6, HDLT, IGA #### [facility] (DEFAULT) [address] [place] [address] 48077 Cholesterol in HDL [Mass/Vol] 29 mg/dL Low >=40 [facility] Comment on above: Result Comment: [<40 mg/dL: Low (High Risk)] [>59 mg/dL: High (Low Risk)] Performed By: #### H FP, CHM6, HDLT, IGA #### [facility] (DEFAULT) [address] [place] [address] 52653 Non HDL Cholesterol 88 mg/dL Normal <130 [facility] Comment on above: Performed By: #### H FP, CHM6, HDLT, IGA #### [facility] (DEFAULT) [address] [place] [address] 33488 Total Cholesterol/HDL Ratio 4.0 Normal <4.5 [facility] Comment on above: Performed By: #### H FP, CHM6, HDLT, IGA #### [facility] (DEFAULT) [address] [place] [address] 38665 Triglyceride [Mass/Vol] 116 mg/dL Normal <150 [facility] Comment on above: Result Comment: [<15 0 mg/dL: Desirable] [150-199 mg/dL: Borderline] [200-499 mg/dL: High] [>500 mg/dL: Very High] Performed By: #### H FP, CHM6, HDLT, IGA #### [facility] (DEFAULT) [address] [place] [address] 44789 Laboratory - Hematology and Cell countson 05-11-2024 HbA1c (Bld) [Mass fraction] 6.3 % Abnormal 4.7 - 5.6 % [facility] MICROALBUMIN,RANDOM URINEon 05-11-2024 Albumin DL <= 20 mg/L (U) [Mass/Vol] mg/dL Normal [facility] Comment on above: Performed By: #### Y TT #### [facility] (DEFAULT) [address] [place] [address] 63999 Creatinine (U) [Mass/Vol] 52.54 mg/dL Normal [facility] Comment on above: Performed By: #### Y TT #### [facility] (DEFAULT) [address] [place] [address] 72304 Microalbumin/Creatinin e Ratio Normal [facility] Comment on above: Result Comment: Not Calculated Performed By: #### Y TT #### [facility] (DEFAULT) [address] [place] [address] 08679 No Panel Informationon 05-11 Interpretation and review of laboratory results Abnormal [facility] T-TRANSGLUTAMINASE IGG/IGA, ABon 05-11-2024 T-TRANSGLUTAMINASE IGA AB <1.2 Normal <4.0 (Negative) [facility] Comment on above: Performed By: #### Y TT #### [facility] (DEFAULT) [address] [place] [address] 10724 Tissue Transglutaminase, IgG <1.2 Normal <6.0 (Negative) [facility] Comment on above: Result Comment: Test Performed by: [facility] [address] [place] [address] Elevator Serviceman: Billy Lo Ph.D.; CLIA# [id number] Performed By: #### Y TT #### [facility] (DEFAULT) [address] [place] [address] 10705 TSH W/FT4 REFLEXon 4 TSH 1.258 uIU/mL Normal 0.550-4.780 [facility] Comment on above: Performed By: #### Y TT #### [facility] (DEFAULT) [address] [place] [address] 72835 VITAMIN B12on 05-11-2024 Cobalamin (Vitamin B12) [Mass/Vol] 819 pg/mL Normal 211-911 [facility] Comment on above: Result Comment: Test ing of Methylmalonic Acid and Intrinsic Factor Blocking Antibody are recommended if clinical suspicion for pernicious anemia due to B12 deficiency is high for patients with intermediate B12 levels (211 to 400 pg/mL) to rule out spurious heterophile antibodies. Performed By: #### Y TT #### [facility] (DEFAULT) [address] [address] VITAMIN D (25-HYDROXY,TOTAL) on 05-11-2024 25-OH Vitamin D Total 22.0 ng/mL Low 30.0-100.0 [facility] Comment on above: Order Comment: Vitam in D values have been shown to be falsely decreased in lipemic samples and should be interpreted with caution. Result Comment: <10 Deficiency 10-29 Insufficiency 30-100 Optimal Level >100 Possible Toxicity Performed By: #### D 25OH #### [facility] (DEFAULT) [address] [address] Amylaseon 03-01-2021 Amylase [Catalytic activity/Vol] 46 U/L Normal 30-110 [facility] Comment on above: Order Comment: Items in this order include: Amylase , Lipase, B12/Folate, CBC with differential, , Manual Differential if Indicated Testing Performed By: [facility] [address] [place], [place] [address] [place] [address] Dr. Amrit Baird, Elevator Serviceman Performed By: #### C 1573, C4521, C215, C123, C122 #### [facility] [address] [facility] [address] [place] [address] B12/Folateon 03-01-2021 Cobalamin (Vitamin B12) [Mass/Vol] 864 pg/mL Normal 239-931 [facility] Comment on above: Order Comment: Items in this order include: Amylase , Lipase, B12/Folate, CBC with differential, , Manual Differential if Indicated Testing Performed By: [facility] [address] [place] [address]. [place] [address] Dr. Amrit Baird, Elevator Serviceman Result Comment: Plea se note: Over the counter high dose supplements of Biotin that are 20 to 300 times greater than the adequate daily intake of 30 mcg/day for adults may cause a bias of 10% or more to be observed in the measured Vitamin B-12 concentrations. Performed By: #### C 1573, C4521, C215, C123, C122 #### [facility] [address] [facility] [address] [place] [address] Folate 8.66 ng/mL Normal 2.80-20.00 [facility] Comment on above: Order Comment: Items in this order include: Amylase , Lipase, B12/Folate, CBC with differential, , Manual Differential if Indicated Testing Performed By: [facility] [address] [place] [address]. [place] [address] Dr. Amrit Baird, Elevator Serviceman Result Comment: Plea se note: Over the counter high dose supplements of Biotin that are 20 to 300 times greater than the adequate daily intake of 30 mcg/day for adults may cause a bias of 10% or more to be observed in the measured Folate concentrations. Performed By: #### C 1573, C4521, C215, C123, C122 #### [facility] [address] [facility] [address] [place] [address] CBC with differentialon 02-18 Erythrocyte distribution width (RBC) [Ratio] 11.9 % Normal 11.5-15.5 [facility] Comment on above: Order Comment: Items in this order include: Amylase , Lipase, B12/Folate, CBC with differential, , Manual Differential if Indicated Testing Performed By: [facility] [address] [place] [address]. [place] [address] Dr. Amrit Baird, Elevator Serviceman Performed By: #### C 1573, C4521, C215, C123, C122 #### [facility] [address] [facility] [address] [place] [address] Hematocrit (Bld) [Volume fraction] 45.6 % Normal 37.0-47.0 [facility] Comment on above: Order Comment: Items in this order include: Amylase , Lipase, B12/Folate, CBC with differential, , Manual Differential if Indicated Testing Performed By: [facility] [address] [place] [address] Dr. Amrit Baird, Elevator Serviceman Performed By: #### C 1573, C4521, C215, C123, C122 #### [facility] [address] [place] [address] [address] [place] [address] Hemoglobin (Bld) [Mass/Vol] 15.1 g/dL Normal 11.5-15.5 [facility] Comment on above: Order Comment: Items in this order include: Amylase , Lipase, B12/Folate, CBC with differential, , Manual Differential if Indicated Testing Performed By: [facility] [address] [place] [address] Dr. Amrit Baird, Elevator Serviceman Performed By: #### C 1573, C4521, C215, C123, C122 #### [facility] [address] [place] [address] [address] [place] [address] MCH (RBC) [Entitic mass] 29.2 pg Normal 27.0-31.0 [facility] Comment on above: Order Comment: Items in this order include: Amylase , Lipase, B12/Folate, CBC with differential, , Manual Differential if Indicated Testing Performed By: [facility] [address] [place] [address]. [place] [address] Dr. Amrit Baird, Elevator Serviceman Performed By: #### C 1573, C4521, C215, C123, C122 #### [facility] [address] [place] [address] [address] [place] [address] MCHC (RBC) [Mass/Vol] 33.1 g/dL Normal 32.0-36.0 [facility] Comment on above: Order Comment: Items in this order include: Amylase , Lipase, B12/Folate, CBC with differential, , Manual Differential if Indicated Testing Performed By: [facility] [address] [place] [address]. [place] [address] Dr. Amrit Baird, Elevator Serviceman Performed By: #### C 1573, C4521, C215, C123, C122 #### [facility] [address] [facility] [address] [place] [address] MCV (RBC) [Entitic vol] 88.0 fL Normal 78.0-100.0 [facility] Comment on above: Order Comment: Items in this order include: Amylase , Lipase, B12/Folate, CBC with differential, , Manual Differential if Indicated Testing Performed By: [facility] [address] [facility] [place] [address] Dr. Amrit Baird, Elevator Serviceman Performed By: #### C 1573, C4521, C215, C123, C122 #### [facility] [address] [place] [address] [address] [place] [address] Platelet mean volume (Bld) [Entitic vol] 11.3 fL Normal 8.9-12.6 [facility] Comment on above: Order Comment: Items in this order include: Amylase , Lipase, B12/Folate, CBC with differential, , Manual Differential if Indicated Testing Performed By: [facility] [facility] [place] [address] Dr. Amrit Baird, Elevator Serviceman Performed By: #### C 1573, C4521, C215, C123, C122 #### [facility] [address] [facility] [address] [place] [address] PLT 237 K CUMM Normal 130-400 [facility] Comment on above: Order Comment: Items in this order include: Amylase , Lipase, B12/Folate, CBC with differential, , Manual Differential if Indicated Testing Performed By: [facility] [facility] [place] [address] Dr. Amrit Baird, Elevator Serviceman Performed By: #### C 1573, C4521, C215, C123, C122 #### [facility] [address] [place] [address] RBC 5.18 M CUMM High 3.80-5.10 [facility] Comment on above: Order Comment: Items in this order include: Amylase , Lipase, B12/Folate, CBC with differential, , Manual Differential if Indicated Testing Performed By: [facility] [address] [place] [address]. [place] [address] Dr. Amrit Baird, Elevator Serviceman Performed By: #### C 1573, C4521, C215, C123, C122 #### [facility] [address] [place] [address] WBC 13.2 K CUMM High 3.8-10.6 [facility] Comment on above: Order Comment: Items in this order include: Amylase , Lipase, B12/Folate, CBC with differential, , Manual Differential if Indicated Testing Performed By: [facility] [address] [place] [address]. [place] [address] Dr. Amrit Baird, Elevator Serviceman Performed By: #### C 1573, C4521, C215, C123, C122 #### [facility] [address] [place] [address] [address] [place] [address] Lipaseon 03-01-2021 Lipase [Catalytic activity/Vol] 47 U/L Normal 23-300 [facility] Comment on above: Performed By: #### C 1573, C4521, C215, C123, C122 #### [facility] [place] [address] Manual Differential if Indic atedon 03-01-2021 Anisocytosis SLIGHT Normal [facility] Comment on above: Order Comment: Items in this order include: Amylase , Lipase, B12/Folate, CBC with differential, , Manual Differential if Indicated Testing Performed By: [facility] [address] [place] [address]. [place] [address] Dr. Amrit Baird, Elevator Serviceman Received comment: User comments: Slide comments: Performed By: #### C 1573, C4521, C215, C123, C122 #### [facility] [address] [place] [address] Basophils 1 % Normal [facility] Comment on above: Order Comment: Items in this order include: Amylase , Lipase, B12/Folate, CBC with differential, , Manual Differential if Indicated Testing Performed By: [facility] [address] [place] [address]. [place] [address] Dr. Amrit Baird, Elevator Serviceman Received comment: User comments: Slide comments: Performed By: #### C 1573, C4521, C215, C123, C122 #### [facility] [address] [facility] [address] [place] [address] Eosinophils 30 % Normal [facility] Comment on above: Order Comment: Items in this order include: Amylase , Lipase, B12/Folate, CBC with differential, , Manual Differential if Indicated Testing Performed By: [facility] [address] [place] [address]. [place] [address] Dr. Amrit Baird, Elevator Serviceman Received comment: User comments: Slide comments: Performed By: #### C 1573, C4521, C215, C123, C122 #### [facility] [address] [place] [address] [address] [place] [address] Lymphocytes 18 % Low 20-51 [facility] Comment on above: Order Comment: Items in this order include: Amylase , Lipase, B12/Folate, CBC with differential, , Manual Differential if Indicated Testing Performed By: [facility] [address] [place] [address]. [place] [address] Dr. Amrit Baird, Elevator Serviceman Received comment: User comments: Slide comments: Performed By: #### C 1573, C4521, C215, C123, C122 #### [facility] [address] [place] [address] Microcytes SLIGHT Normal SLIGHT [facility] Comment on above: Order Comment: Items in this order include: Amylase , Lipase, B12/Folate, CBC with differential, , Manual Differential if Indicated Testing Performed By: [facility] [address] [place] [address]. [place] [address] Dr. Amrit Baird, Elevator Serviceman Received comment: User comments: Slide comments: Performed By: #### C 1573, C4521, C215, C123, C122 #### [facility] [address] [place] [address] Monocytes 3 % Normal 2-9 [facility] Comment on above: Order Comment: Items in this order include: Amylase , Lipase, B12/Folate, CBC with differential, , Manual Differential if Indicated Testing Performed By: [facility] [address] [facility] [place] [address] Dr. Amrit Baird, Elevator Serviceman Received comment: User comments: Slide comments: Performed By: #### C 1573, C4521, C215, C123, C122 #### [facility] [address] [place] [address] Neutrophils 48 % Normal 42-75 [facility] Comment on above: Order Comment: Items in this order include: Amylase , Lipase, B12/Folate, CBC with differential, , Manual Differential if Indicated Testing Performed By: [facility] [address] [facility] [place] [address] Dr. Amrit Baird, Elevator Serviceman Received comment: User comments: Slide comments: Performed By: #### C 1573, C4521, C215, C123, C122 #### [facility] [address] [facility] [address] [place] [address] US THYROID ONLYon 11-21-2020 US THYROID ONLY EXAMINATION: THYROID ULTRASOUND 11/21/2020 COMPARISON: None. HISTORY: ORDERING SYSTEM PROVIDED HISTORY: Goiter; TECHNOLOGIST PROVIDED HISTORY: Illness/Other Acuity: Unknown Reason for Exam: Goiter Cancer History: Surgery, Radiation History: Type of Encounter: Initial Additional signs and symptoms: ORDERING SYSTEM PROVIDED DIAGNOSIS CODES: E04.9 Goiter FINDINGS: Right thyroid lobe: 6.1 cm x 2.5 cm x 1.9 cm. Left thyroid lobe: 5.6 cm x 2.1 cm x 1.9 cm. Isthmus: 5 mm in AP dimension. Thyroid gland: Thyroid gland demonstrates normal echotexture and vascularity. Nodules: No thyroid nodules are present. Cervical lymphadenopathy: There is a benign architecture 2.3 cm x 1.3 cm x 7 mm lymph node zone III on the left. IMPRESSION: Mildly enlarged thyroid gland but no focal thyroid mass seen. Benign architecture zone III lymph node on the left. [facility]/pji Workstation ID: [id number] Dictated by: KARMA FERNANDEZ on SatNov 21, 2020 9:27:24 AM EST Transcribed by: YUE MANCIA on SatNov 21, 2020 9:35:39 AM EST Finalized by: KARMA FERNANDEZ on SatNov 21, 2020 10:16:53 AM EST Normal [facility] Comment on above: Order Comment: Pt/fa x Injury/Trauma or Illness?:Illness/Other How long have you had these symptoms (acute/chronic)?:Unknown Reason for exam?:Goiter History of cancer?: Surgeries, chemotherapy, or radiation?: Type of Exam?:Initial Additional signs and symptoms?: CT Abdomen/Pelvis Enterogram With Conton 04-02-2018 CT Abdomen/Pelvis Enterogram With Cont 1. Negative CT enteropathy. 2. Moderate stool in the colon without colitis. 3. Normal appendix. 4. Borderline splenomegaly. 5. Mild fatty infiltration of the liver. 6. Small bilateral pulmonary nodules, noncalcified, are most likely noncalcified granulomata. [facility]/[employer] Workstation ID: [id number] Invalid Interpretation Code [facility] CT Abdomen/Pelvis Enterogram With Cont EXAMINATION: CT ABDOMEN/PELVIS ENTEROGRAM WITH CONTRAST HISTORY: ORDERING SYSTEM PROVIDED HISTORY: Abdominal distention, TECHNOLOGIST PROVIDED HISTORY: Reason for exam: abd pain, distension Illness/Other Encounter Type: Subsequent/Follow-up Additional signs and symptoms: IBS, diabetes ORDERING SYSTEM PROVIDED DIAGNOSIS CODES: R14.0 Abdominal distention R19.7 Diarrhea, unspecified type K58.0 Irritable bowel syndrome with diarrhea R11.0 Nausea E10.69 Type 1 diabetes mellitus with other specified complication (HCC) COMPARISON: None. TECHNIQUE: Dose reduction techniques were achieved by using automated exposure control and/or adjustment of mA and/or kV according to patient size and/or use of iterative reconstruction technique. Oral VoLumen also given. CONTRAST: BARIUM SULFATE 0.1 % (W/V), 0.1 % (W/W) ORAL SUSPENSION - 1350 mL, IOPAMIDOL 76 % INTRAVENOUS SOLUTION - 75 mL, FINDINGS: Lung base: Small bilateral pulmonary nodules measuring 3-4 mm in maximum diameter are seen in both lower lobes as well as in the right middle lobe. Abdomen: No abnormal thickening or distention of the duodenum or small bowel. There is moderate stool in the colon. No suggestion of colitis. The appendix is normal. Spleen measures up to 13.8 cm in long axis which is upper limits of normal. No focal mass in the spleen. There is mild fatty infiltration of the liver. No biliary dilatation. No pancreatitis. The adrenal glands and kidneys appear unremarkable. No retroperitoneal hemorrhage or adenopathy. No ascites. No free air. Pelvis: Ovaries and uterus age appropriate. No pelvic free fluid. Urinary bladder unremarkable. No abnormal lymph nodes or other abnormalities in the pelvis. Invalid Interpretation Code [facility] CT Abdomen/Pelvis Enterogram With Cont Interface, Rad In Gabstrq - 04/02/2018 7:57 PM EDT EXAMINATION: CT ABDOMEN/PELVIS ENTEROGRAM WITH CONTRAST HISTORY: ORDERING SYSTEM PROVIDED HISTORY: Abdominal distention, TECHNOLOGIST PROVIDED HISTORY: Reason for exam: abd pain, distension Illness/Other Encounter Type: Subsequent/Follow-up Additional signs and symptoms: IBS, diabetes ORDERING SYSTEM PROVIDED DIAGNOSIS CODES: R14.0 Abdominal distention R19.7 Diarrhea, unspecified type K58.0 Irritable bowel syndrome with diarrhea R11.0 Nausea E10.69 Type 1 diabetes mellitus with other specified complication (HCC) COMPARISON: None. TECHNIQUE: Dose reduction techniques were achieved by using automated exposure control and/or adjustment of mA and/or kV according to patient size and/or use of iterative reconstruction technique. Oral VoLumen also given. CONTRAST: BARIUM SULFATE 0.1 % (W/V), 0.1 % (W/W) ORAL SUSPENSION - 1350 mL, IOPAMIDOL 76 % INTRAVENOUS SOLUTION - 75 mL, FINDINGS: Lung base: Small bilateral pulmonary nodules measuring 3-4 mm in maximum diameter are seen in both lower lobes as well as in the right middle lobe. Abdomen: No abnormal thickening or distention of the duodenum or small bowel. There is moderate stool in the colon. No suggestion of colitis. The appendix is normal. Spleen measures up to 13.8 cm in long axis which is upper limits of normal. No focal mass in the spleen. There is mild fatty infiltration of the liver. No biliary dilatation. No pancreatitis. The adrenal glands and kidneys appear unremarkable. No retroperitoneal hemorrhage or adenopathy. No ascites. No free air. Pelvis: Ovaries and uterus age appropriate. No pelvic free fluid. Urinary bladder unremarkable. No abnormal lymph nodes or other abnormalities in the pelvis. IMPRESSION: 1. Negative CT enteropathy. 2. Moderate stool in the colon without colitis. 3. Normal appendix. 4. Borderline splenomegaly. 5. Mild fatty infiltration of the liver. 6. Small bilateral pulmonary nodules, noncalcified, are most likely noncalcified granulomata. PRL/dbg Workstation ID: [id number] Invalid Interpretation Code [facility] TVI Picit[facility] , Urineon 03-26 Internal Control Pass Invalid Interpretation Code [facility] Interpretation and review of laboratory results Normal Invalid Interpretation Code [facility] Urine, test (choriogonadotropin presence) Negative Invalid Interpretation Code Negative [facility] Urine, specific gravity Invalid Interpretation Code 1.005 - 1.025 [facility] [place] GASTRIC EMPTYING SOLIDon 02-07-2018 DC GASTRIC EMPTYING SOLID * * *Final Report* * *DATE OF EXAM: Feb 07 2018 2:40PM ELIANE Virgilio7 [facility] GASTRIC EMPTYING SOLID / REASON: NAUSEA, BLOATING SYMPTOM * * * * Physician Interpretation * * * *RESULT: SOLID MEAL GASTRIC EMPTYING STUDY:CLINICAL HISTORY: Nausea. Abdominal bloating. To assess for abnormal gastric emptying of a solid meal.TECHNIQUE: 1.05 mCi Tc-99m sulfur colloid was given orally in a meal consisting of 4 oz Egg Beaters.RESULT:Solid study demonstrates:- 41% gastric retention at 1hr (normal range, 37-90%),- 4% retention at 2hr (normal range, 30-60%), and- 0% retention at 4hr (normal range, 0-10%).There is no evidence of accelerated emptying of gastric contents, with 41% retention at 1hr (rapid emptying is <30% retention at 1hr). IMPRES MAXIMO:NORMAL RATE OF GASTRIC EMPTYING OF SOLID MEAL.Transcribe Date/Time: Feb 07 2018 2:46PDictated by: LURDES TALAVERA MDThis examination was interpreted and the report reviewed and electronically signed by: LURDES TALAVERA MD on Feb 07 2018 2:47PM ESTThank you for allowing us to participate in the care of your patient.Should there be any questions regarding this interpretation, please call [phone].If you are unable to reach us at the number above,please feel free to contact [facility] at [phone] [id number] [facility] PROGRESSon 02-07-2018 PROGRESS HNO ID: [id number]: Brandi SarabiaSersuhae: (none)Author Type: (none)Type: Progress NotesFiled: 02/07/2018 9:03 AMNote Text: Radiology Service Progress NotePATIENT NAME: Shani Dunn: [id number] OF SERVICE: February 07, 2018TIME: 9:02 AMPATIENT IDENTITY VERIFICATION COMPLETED USING TWO (2) METHODS: Patientconfirmed name verbally and Date of .PATIENT GENDER DATA: Female. status: : NoBreastfeeding status: N/APATIENT RELEVANT IMPLANT DATA REVIEWED: Not ApplicableRADIOLOGY DEPARTMENT: [facility] IV DATA: Not applicableSIGNED BY: Brandi RaymtTrinity 2017 9:02 AM [facility] Vital Signs Date Time Vital Sign Value Performing Clinician Facility 05-17-2025 14:53-0400 Body height 160.02 cm Karina Lassiter MD Work Phone: [facility] 05-17-2025 14:53-0400 Body mass index (BMI) [Ratio] 29.9 kg/m2 Karina Lassiter MD Work Phone: [facility] 05-17-2025 14:53-0400 Body weight 76.65 kg Karina Lassiter MD Work Phone: [facility] 05-17-2025 14:53-0400 Diastolic blood pressure 82 mm[Hg] Karina Lassiter MD Work Phone: [facility] 05-17-2025 14:53-0400 Respiratory rate 16 /min Karina Lassiter MD Work Phone: [facility] 05-17-2025 14:53-0400 Systolic blood pressure 134 mm[Hg] Karina Lassiter MD Work Phone: [facility] 03-16-2025 14:35-0400 Body temperature 98 [degF] No Primary Care Physician [facility] 03-16-2025 14:35-0400 Diastolic blood pressure 59 mm[Hg] No Primary Care Physician [facility] 03-16-2025 14:35-0400 Heart rate 85 /min No Primary Care Physician [facility] 03-16-2025 14:35-0400 Respiratory rate 16 /min No Primary Care Physician [facility] 03-16-2025 14:35-0400 SaO2% (BldA) [Mass fraction] 100 % No Primary Care Physician [facility] 03-16-2025 14:35-0400 Systolic blood pressure 106 mm[Hg] No Primary Care Physician [facility] 03-16-2025 12:49-0400 Body height 160.02 cm No Primary Care Physician [facility] 03-16-2025 12:49-0400 Body mass index (BMI) [Ratio] 29.5 kg/m2 No Primary Care Physician [facility] 03-16-2025 12:49-0400 Body weight 75.5 kg No Primary Care Physician [facility] 03-08-2025 10:50-0400 Body height 160 cm [facility] LONG DISTANCE BILLING [email or web address] Work Phone: [facility] 03-08-2025 10:50-0400 Body mass index (BMI) [Ratio] 29.58 kg/m2 [facility] [employer] Work Phone: [facility] 03-08-2025 10:50-0400 Body weight 75.75 kg [facility] LONG DISTANCE BILLING [email or web address] Work Phone: [facility] 03-08-2025 10:50-0400 Diastolic blood pressure 80 mm[Hg] [facility] LONG DISTANCE BILLING [email or web address] Work Phone: [facility] 03-08-2025 10:50-0400 Heart rate 93 /min [facility] [employer] Work Phone: [facility] 03-08-2025 10:50-0400 SaO2% (BldA) [Mass fraction] 99 % [facility] [employer] Work Phone: [facility] 03-08-2025 10:50-0400 Systolic blood pressure 128 mm[Hg] [facility] LONG DISTANCE BILLING OPERATOR-LENS EDGE GRINDER MACHINE Work Phone: [facility] 05-11-2024 09:46-0400 Body height 160 cm Irean Mohr LONG DISTANCE BILLING OPERATOR-LENS EDGE GRINDER MACHINE Work Phone: [facility] 05-11-2024 09:46-0400 Body mass index (BMI) [Ratio] 29.49 kg/m2 [facility] LONG DISTANCE BILLING OPERATOR-LENS EDGE GRINDER MACHINE Work Phone: [facility] 05-11-2024 09:46-0400 Body weight 75.52 kg [facility] LONG DISTANCE BILLING OPERATOR-LENS EDGE GRINDER MACHINE Work Phone: [facility] 05-11-2024 09:46-0400 Diastolic blood pressure 68 mm[Hg] Irena Mohr LONG DISTANCE BILLING OPERATOR-LENS EDGE GRINDER MACHINE Work Phone: [facility] 05-11-2024 09:46-0400 Heart rate 87 /min [facility] LONG DISTANCE BILLING OPERATOR-LENS EDGE GRINDER MACHINE Work Phone: [facility] 05-11-2024 09:46-0400 SaO2% (BldA) [Mass fraction] 99 % [facility] LONG DISTANCE BILLING OPERATOR-LENS EDGE GRINDER MACHINE Work Phone: [facility] 05-11-2024 09:46-0400 Systolic blood pressure 102 mm[Hg] [facility] LONG DISTANCE BILLING OPERATOR-LENS EDGE GRINDER MACHINE Work Phone: [facility] 03-26-2018 09:24-0400 BMI (Body Mass Index) 24.55 kg/m2 [facility] 03-26-2018 09:24-0400 Body Temperature 97.5 [degF] [facility] 03-26-2018 09:24-0400 BP Diastolic 75 mm[Hg] [facility] 03-26-2018 09:24-0400 BP Systolic 110 mm[Hg] [facility] 03-26-2018 09:24-0400 Pulse (Heart Rate) 86 /min Jaxon Medellin [facility] 03-26-2018 09:24-0400 Pulse Oximetry 96 % Jaxon Medellin [facility] 03-26-2018 09:24-0400 Respiratory Rate 16 /min Jaxon Medellin [facility] 03-26-2018 09:24-0400 Weight 64.86 kg Jaxon Medellin [facility] Encounters Encounter Date Encounter Type Care Provider Facility Start: 07-05-2025 ambulatory Chalon Maikol Facility:[facility] Start: 07-02-2025 Encounter for other preprocedural examination Luis Montelongo [facility] Start: 05-17-2025 End: 05-17-[address] Luis Montelongo MD -[facility] Work Phone: Start: 05-17-2025 End: 05-17-2025 ambulatory Karina Lassiter MD Work Phone: -[facility] Start: 05-04-2025 End: 05-04-2025 ambulatory Karina Lassiter MD Work Phone: -Nuclear Medicine [facility] Start: 05-04-2025 End: 05-04-2025 Patient encounter procedure Carol Ann MORRISSEY -Nuclear Medicine [facility] Work Phone: Start: 05-04-2025 End: 05-04-2025 ambulatory Chalon Maikol Facility:[facility] Start: 04-26-2025 End: 04-26-2025 ambulatory No Primary Care Physician -Ultrasound [facility] Start: 04-26-2025 End: 04-26-2025 Patient encounter procedure Carol Ann MORRISSEY -Ultrasound [facility] Work Phone: Start: 04-26-2025 End: 04-26-2025 ambulatory Chalon [facility] Facility:[facility] Start: 04-01-2025 End: 04-01-2025 Patient encounter procedure Carol Ann MORRISSEY -[facility] Work Phone: Start: 04-01-2025 End: 04-01-2025 ambulatory No Primary Care Physician [facility] Work Phone: Start: 03-16-2025 ambulatory Karina Lassiter Facility:[facility] Start: 03-16-2025 Non-patient / Non-visit Sly Del Valle nd -[facility] Start: 03-16-2025 End: 03-16-2025 Admission to same day surgery center Sly Carson DO -Endoscopy Work Phone: Start: 03-16-2025 End: 03-16-2025 ambulatory No Primary Care Physician [facility] Work Phone: Start: 03-08-2025 End: 03-08-2025 Office outpatient visit 40 minutes Irena Hines LONG DISTANCE BILLING OPERATOR-LENS EDGE GRINDER MACHINE Work Phone: [facility] Comment on above: Type 1 diabetes misael itus with hyperglycemia (Primary Dx); Type 1 diabetes mellitus with hypoglycemia and without coma; Insulin pump status Start: 03-08-2025 ambulatory IRENA HINES Facil ity:[facility] Start: 12-31-2024 End: 12-31-2024 Patient encounter procedure Carol Ann Alonzo [facility] Work Phone: Start: 12-31-2024 End: 12-31-2024 ambulatory Carol Ann Alonzo Facility:[facility] Start: 09-29-2024 End: 09-29-2024 ambulatory Carol Ann Alonzo Facility:[facility] Start: 09-08-2024 ambulatory ALMA Valencia ity:[facility] Start: 07-07-2024 End: 07-07-2024 ambulatory Eleonora Davenport Facility:[facility] Start: 05-27-2024 ambulatory IRENA Oliva [facility] Start: 05-11-2024 End: 05-11-2024 Office outpatient visit 40 minutes Irena Hines LONG DISTANCE BILLING OPERATOR-LENS EDGE GRINDER MACHINE Work Phone: [facility] Comment on above: Type 1 diabetes misael itus with hyperglycemia (Primary Dx); Type 1 diabetes mellitus with hypoglycemia and without coma Start: 05-11-2024 ambulatory ALMA Valencia ity:[facility] Start: 01-15-2024 [facility] Start: 01-15-2024 ambulatory OLAF dias [facility] Start: 09-12-2021 End: 09-12-2021 ambulatory [facility] Start: 09-11-2021 End: 09-11-2021 ambulatory [facility] Start: 07-14-2021 Coordination of care plan Aydee Montgomery MA [facility] Primary Care Physicians Start: 07-14-2021 End: 07-14-2021 ambulatory PHYSICIAN NO [facility] Start: 02-08-2021 End: 02-08-2021 ambulatory [facility] Start: 01-04-2021 End: 01-04-2021 ambulatory SHEBA MELGAR [facility] Start: 01-04-2021 End: 01-04-2021 Patient encounter procedure Sheba Ramirezlouis Melgar Work Phone: [facility] Start: 12-13-2020 End: 12-13-2020 [facility] Start: 12-13-2020 End: 12-13-2020 Patient encounter procedure Yane Galvan [facility] Physician [facility] Start: 11-21-2020 End: 11-22-2020 Patient encounter procedure BRI GARRETT [facility] Start: 04-02-2018 End: 04-02-2018 Ambulatory Kenney Givens Work Phone: [facility] Start: 03-26-2018 End: 03-26-2018 Ambulatory PHYSICIAN NO [facility] Start: 03-26-2018 End: 03-26-2018 Office/outpatient visit, new, level 3 Jaxon Medellin Work Phone: [facility]/Ken Jade Start: 02-07-2018 End: 02-07-2018 Ambulatory KEVIN SHIPLEY [facility] Procedures Date Procedure Procedure Detail Performing Clinician Start: 05-04-2025 Radionuclide study o f abdomen Karina Lassiter MD Work Phone: Start: 04-26-2025 Ultrasonography of abdomen No Primary Care Physician Start: 03-16-2025 Colonoscopy No Primary Care Physician Start: 03-08-2025 Hemoglobin glycosylated a1c Irena Hines LONG DISTANCE BILLING OPERATOR-LENS EDGE GRINDER MACHINE Work Phone: Start: 05-11-2024 Hemoglobin glycosylated a1c Irena Hines LONG DISTANCE BILLING OPERATOR-LENS EDGE GRINDER MACHINE Work Phone: Plan of Treatment Date Care Activity Detail Author Start: 09-20-2025 End: 09-20-2025 Telemedicine consultation with patient 09/20/2025 12:30 PM EST Telemedicine [facility] [address] [address] Irena Hines LONG DISTANCE BILLING OPERATOR-LENS EDGE GRINDER MACHINE [address] [place] [address] [facility] Start: 06-21-2025 Influenza vaccination INFLUENZ A VACCINE (Season Ended) [facility] Start: 03-16-2025 Colonoscopy w/biopsy single/multiple COLONOSCOPY AND BIOPSY [facility] Start: 03-16-2025 Egd transoral biopsy single/multiple EGD BIOPSY SINGLE/MULTIPLE [facility] Start: 03-16-2025 Patient discharge [facility] Start: 03-08-2025 End: 03-08-2026 VITAMIN D (25-HYDROXY,TOTAL) [facility] Comment on above: Expected: 03/08/2025 , Expires: 03/08/2026 Start: 03-08-2025 End: 03-08-2025 Patient encounter procedure 03/08/2025 11:00 AM EDT Office Visit [facility] [address] [address] Irena Hines, LONG DISTANCE BILLING OPERATOR-LENS EDGE GRINDER MACHINE [address] [place] [address] [facility] Start: 09-08-2024 End: 09-08-2024 Telemedicine consultation with patient 09/08/2024 12:30 PM EST Telemedicine [facility] [address] [facility] [place] [address] [place] [address] Irena Hines, LONG DISTANCE BILLING OPERATOR-LENS EDGE GRINDER MACHINE [address] [place] [address] [facility] Start: 06-21-2024 COVID-19 VACCINE ( season) COVID-19 VACCINE ( season) [facility] Start: 06-21-2024 Influenza vaccination INFLUENZA VACC INE (#1) [facility] Start: 06-21-2023 COVID-19 VACCINE ( season) COVID-19 VACCINE ( season) [facility] Start: 01-01-2022 Tetanus vaccination TETANUS [facility] Start: 06-21-2021 Influenza vaccination Sequenti al Influenza Vaccine (#1) [facility] Start: 01-04-2021 End: 01-04-2021 Immunization 01/04/2021 Immunization Primary Care Sheba Melgar, DO [address] [place] [id number] [phone] [facility] Start: 01-03-2021 COVID-19 Vaccine (2 of 2 - Pfizer series) COVID-19 Vaccine (2 of 2 - Pfizer series) [facility] Start: 06-21-2020 Influenza vaccinatio n given Sequential Influenza Vaccine (#1) [facility] Start: 02-07-2019 Vaccination for maty n papillomavirus HPV Vaccines (3 - 3-dose series) [facility] Start: 01-01-2019 HPV VACCINE (3 - 3-d ose series) HPV VACCINE (3 - 3-dose series) [facility] Start: 06-21-2018 Influenza vaccination SEQUENTI AL INFLUENZA VACCINE (Season Ended) [facility] Start: 04-02-2018 End: 04-02-2018 Ambulatory 04/02/2018 Appointment Radiology Kenney Givens MD [address] [place] [address] [phone] [facility] CT Start: 2018 Screening for malign ant neoplasm of cervix CERVICAL CANCER SCREENING DISCUSSION [facility] Start: 01-06-2016 PNEUMOCOCCAL VACCINE SERIES (1 of 2 - PCV) PNEUMOCOCCAL VACCINE SERIES (1 of 2 - PCV) [facility] Start: 2015 Hepatitis C antibody , confirmatory test Hepatitis C Screening [facility] Start: 2015 Hepatitis C screening Hepatitis C Sc reening [facility] Start: 01-06-2012 HIV screening [facility] Start: 2009 Adolescent depressio n screening assessment Depression Screening (PHQ9) [facility] Start: 2009 Depression screening using PHQ-9 (Patient Health Questionnaire 9) score Depression Screening (PHQ9) [facility] Start: 01-06-2008 Vaccination for maty n papillomavirus [facility] Start: 2007 Diabetic foot examination (regime/therapy) FOOT EXAM [facility] Start: 2007 Microalbumin measurement, urine, quantitative Urine Microalbumin [facility] Start: 2007 Ophthalmic examinati on and evaluation OPHTHALMOLOGY EXAM [facility] Start: 2007 Urine, microalbumin URINE MICROALBUM IN [facility] Start: 2003 PNEUMOCOCCAL VACCINE SERIES (1 of 2 - PCV) PNEUMOCOCCAL VACCINE SERIES (1 of 2 - PCV) [facility] Start: 2003 Pneumococcal Vaccine : Ped or At-Risk (1 of 2 - PPSV23) Pneumococcal Vaccine: Ped or At-Risk (1 of 2 - PPSV23) [facility] Start: 01-06-2000 History and physical examination, annual for health maintenance Wellness Visit [facility] Start: 1997 HbA1c [facility] Start: 1997 Hemoglobin A1c measurement A1C [facility] Start: 1997 Hepatitis C screening HEPATITI S C VIRUS SCREENING [facility] Start: 1997 Screening for Chlamy rufino trachomatis Chlamydia Screening [facility] Start: 1997 Screening for malign ant neoplasm of cervix PAP SMEAR [facility] Start: 1997 Tetanus vaccination [facility] Continuous glucose monitoring analysis i&r DC CONTINUOUS GLUCOSE MONITORING ANALYSIS I&R DC Charge Routine Type 1 diabetes mellitus with hyperglycemia Ordered: 05/11/2024 [facility] Comment on above: Ordered: 05/11/2024 Continuous glucose monitoring analysis i&r DC CONTINUOUS GLUCOSE MONITORING ANALYSIS I&R DC Charge Routine Type 1 diabetes mellitus with hyperglycemia Ordered: 03/08/2025 [facility] Comment on above: Ordered: 03/08/[address] [facility] Work Phone: Radionuclide gastric emptying study [facility] Radionuclide study o f abdomen [facility] US Gallbladder [facility] Immunizations Immunization Date Immunization Notes Care Provider Faby adams 09-29-2022 influenza virus vaccine, unspecified formulation Irena Sofranec LONG DISTANCE BILLING OPERATOR-LENS EDGE GRINDER MACHINE Work Phone: [facility] 09-26-2022 Influenza, injectabl e, Madin Astatula Canine Kidney, preservative free, quadrivalent Irena Sofranec LONG DISTANCE BILLING OPERATOR-LENS EDGE GRINDER MACHINE Work Phone: [facility] 07-14-2021 Pfizer SARS-CoV-2 Vaccination Aydee Montgomery MA [facility] 01-04-2021 Pfizer SARS-CoV-2 Vaccination Sis Carlton [facility] 12-13-2020 Pfizer SARS-CoV-2 Vaccination Yane Princeen [facility] 10-09-2018 HPV, unspecified formulation Sis Carlton [facility] 01-02-2012 tetanus toxoid, redu nancy diphtheria toxoid, and acellular pertussis vaccine, adsorbed Irena Sofranec LONG DISTANCE BILLING OPERATOR-LENS EDGE GRINDER MACHINE Work Phone: [facility] 1997 hepatitis B vaccine, pediatric or pediatric/adolescent dosage Irena Sofranec LONG DISTANCE BILLING OPERATOR-LENS EDGE GRINDER MACHINE Work Phone: [facility] 1997 hepatitis B vaccine, pediatric or pediatric/adolescent dosage [facility] LONG DISTANCE BILLING OPERATOR-LENS EDGE GRINDER MACHINE Work Phone: [facility] 1997 hepatitis B vaccine, pediatric or pediatric/adolescent dosage Irena Sofranec LONG DISTANCE BILLING OPERATOR-LENS EDGE GRINDER MACHINE Work Phone: [facility] Payers Date Payer Category Payer Unknown [id number] 2024 Self-pay 2024 Managed Care (unspecified) AN[employer]M HMO PPO POS [id number] 2024 Unknown ANTHEM ANTHEM HM O PPO POS [id number] 2024-Present [address] [place] [address] 1.2.840.087862.1.13.172. 2.7.3.755000.315 2024 Unknown [id number] 2018 Unknown [id number] 2018 Unknown [id number] 1.2.840.244204.1.13.385. 2.7.3.458735.315 2012 Unknown [id number] 1997 Unknown [id number] 2..840.1.052883.3.579. 2.902 1997 Unknown [id number] 2.16.840.1.912238.3.579. 2.903 1997 Unknown [id number] 2.16.840.1.133240.3.579. 2.903 1997 Unknown [id number] 2.16.840.1.776919.3.579. 2.903 1997 Unknown [id number] 2.16.840.1.512311.3.579. 2.900 1997 Unknown [id number] 2.16840.1.686381.3.579. 2.900 1997 Unknown [id number] 2.16.840.1.470012.3.579. 2.900 1966 Unknown [id number] 2.16.840.1.793392.3.579. 2.594 1966 Unknown [id number] 2.840.1.135068.3.579. 2.594 1966 Unknown [id number] 2.840.1.925349.3.579. 2.594 1966 Unknown [id number] 2.840.1.165423.3.579. 2.594 1966 Unknown [id number] 2..840.1.969022.3.579. 2.594 Unknown [id number] 2.840.1.296764.3.579. 2.462 Unknown [id number] 2.840.1.522443.3.579. 2.462 Unknown [id number] 2.840.1.883497.3.579. 2.462 Unknown [id number] 2.840.1.302867.3.579. 2.462 Unknown [id number] 2.16840.1.003157.3.579. 2.462 Unknown [id number] 2.840.1.693345.3.579. 2.462 Unknown [id number] 2.840.1.361805.3.579. 2.462 Unknown [id number] 2.840.1.697223.3.579. 2.462 Unknown [id number] 2.840.1.395481.3.579. 2.462 Unknown [id number] 2.840.1.200344.3.579. 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 (finding) [facility] Exposure to SARS-CoV -2 (event) Not sure [facility] Start: 05-11-2024 End: 03-08-2025 Alcoholic beverage intake Current drinker of alcohol (finding) [facility] Start: 05-11-2024 End: 03-08-2025 History of Social function [facility] Start: 05-11-2024 End: 03-08-2025 Tobacco use panel [facility] Start: 01-16-2024 Alcohol Comment 2 glasses a month [facility] Start: 09-07-2024 Gender identity Identifies as female gender (finding) [facility] Start: 09-07-2024 Sexual orientation Choose not to disclose [facility] Start: 11-23-2012 Sex Female (finding) [facility] Start: 1995 Sex Assigned At Female W [facility] NEGATED: Highlighted row Not [facility] Medical Equipment Procedure Code Equipment Code Equipment Origin al Text Equipment Identifier Dates As directed up t o 6X daily with insulin pens in the event of pump failure DxE10.65 please hold for patient to request [id number] Start: 01-16-2024 As directed for signs/symptoms of DKA. DxE10.65 [id number] Start: 01-16-2024 Goals Date Patient Goal Desired Activity /State Mental Status Date Assessment Result Facility 03-16-2025 Cognitive function Voice/Name [facility] Work Phone: 03-16-2025 Cognitive function Patient Siddharth rivera Person;Place;Time [facility] Work Phone: Clinical Notes 05-11-2024 to 05-17-2025 Note Date & Type Note Facility 05-17-2025 Progress note [facility] 05-17-2025 Progress note Note Date/Time May 17, 2025 3:00pm [facility] [address] [place] [address] OFFICE VISIT Date of Service: 05/17/25 MR#: [id number] Acct: [id number] Name: SHANI HONG Rep #: [id number] : 1995 Provider: Dr. Alfonzo Montelongo MD Age/Sex: 30/F Location: [facility] Status: Signed Intake Vital Signs 03/16/25 12:49 05/17/25 14:53 Height 5 ft 3 in 5 ft 3 in Weight: 169 lb BMI 29.9 BP 134/82 H Blood Pressure Location Rt brachial Position Sitting Respiration 16 Intake Visit Reasons: GALLBLADDER Chief Complaint: abn hida scan Land Use Planner Required: No Is patient in pain?: No Allergies acetaminophen Adverse Reaction (Mild, Verified 05/17/25 14:54) Nausea/Vom/Diarrhea amoxicillin Adverse Reaction (Mild, Verified 05/17/25 14:54) Nausea/Vom/Diarrhea Medications ?Medication ?Instructions ?Recorded ?Confirmed ?Type blood-glucose transmitter (Dexcom 05/07/24 05/17/25 H istory G6 Transmitter device) insulin aspart U-100 100 unit/mL 100 unit subcut DAILY 05/07/24 05/17/25 History subcutaneous solution (Novolog U-100 Insulin aspart) albuterol sulfate 90 mcg/actuation 1 inh inhalation ON CE 06/10/24 05/17/25 History aerosol inhaler clonidine HCl 0.2 mg tablet 0.2 mg PO QHS 06/10/24 History fluticasone furoate 100 1 inh inhalation DAILY 06/1005/17/25 History mcg-vilanterol 25 mcg/dose inhalation powder (Breo Ellipta) levonorgestrel 17.5 mcg/24 hr (up 1 device intrauterin e ONCE 06/10/24 05/17/25 History to 5 yrs) 19.5mg intrauterine device (Kyleena) hyoscyamine sulfate 0.125 mg tablet 0.125 mg PO BID-QI D PRN dyspepsia 11/27/24 05/17/25 Rx #30 tabs diphenoxylate-atropine 2.5 1 tab PO BID PRN diarrhea # 14 tabs 12/31/24 05/17/25 Rx mg-0.025 mg tablet (Lomotil) colestipol 1 gram tablet 4 g (4 x 1 gram) PO BID 1 mo nth 01/26/25 05/17/25 Rx #240 tabs melatonin 10 mg capsule 10 mg PO QHS PRN sleep 03/1105/17/25 History omeprazole 40 mg capsule,delayed 40 mg PO QDAY #30 cap s 03/25/25 05/17/25 Rx release Have you fallen in the past year?: No PFSH Medical History Diarrhea Anxiety Alcohol use Insulin dependent diabetes mellitus History of renal disease Low iron Restless legs Migraine headache History of ulceration Gastric reflux Shortness of breath on exertion Non-smoker IBS (irritable bowel syndrome) Asthma Type 1 diabetes Physical exam, pre-employment Surgical History Hx of colonoscopy Hx of toe surgery History of adenoidectomy Hx of tonsillectomy S/P nasal surgery Family History Mother Ulcerative colitis Social History Smoking Status: Never smoker HPI HPI HPI: Patient is a 30-year-old female with biliary dyskinesia. Patient notes that shehas been having diarrhea as well as epigastric discomfort with fatty meals. Shereports that she has cramping as well. She has been getting worked up for this by GI and they ordered a HIDA which showed a 0% ejection fraction. ROS General General: Yes fatigue; No weight change, appetite, colon cancer, breast cancer or weakness HEENT HEENT: No difficulty swallowing, eye injury, eye surgery, swollen glands or hoarseness Endo Endocrine: Yes diabetes mellitus; No thyroid disease, thyroid cancer, Hair loss, heat intolerance or cold intolerance Skin Skin: No rash or changing moles Breast Breast: No left breast lump, right breast lump, nipple discharge, breast pain, abnormal mammogram, abnormal US or breast enlargement Musc Musculoskeletal: No back problems, arthritis, rheumatoid arthritis, gout or joint pain Cardio Cardiovascular: No murmur, pacemaker, heart disease, atrial fibrillation, high blood pressure, heart attack, heart stent, palpitations, shortness of breath with exertion or chest pain Psych Psychiatric: Yes anxiety; No depression or hearing voices Resp Respiratory: Yes shortness of breath, No sleep apnea, No cough, No COPD, Yes asthma, No emphysema and No wheezing Gastro Gastrointestinal: Yes abdominal pain, Yes nausea or vomiting, Yes diarrhea, Yes constipation, No blood in stool, Yes acid reflux, No hemorrhoids, No ulcers, Yesgallbladder problem and No black,tarry stools Mani Hematologic: No blood thinners, No blood disorders, No bleeding, No anemia and No blood clots Neuro Neurologic: No system reviewed and no additional complaints, except as documented, No as per HPI, No abnormal gait, No abnormal hearing, No abnormal movements, No abnormal speech, No behavioral changes, No burning sensations, No confusion, No convulsions, No disequilibrium, No dizziness, No localized weakness, No frequent falls, No headache(s), No lack of coordination, No loss ofvision, No memory loss, No numbness, No other visual disturbances, No radicular pain, No restless legs, No sensory deficit, No syncope, No tingling, No tremor(s), No weakness and No other Exam Const General: cooperative Orientation: alert and oriented x3 HENMT Head: normal to inspection Neck Neck: normal visual inspection and full ROM Chest Chest palpation & inspection: normal inspection of the chest Resp Effort & Inspection: normal respiratory effort Auscultation: clear to auscultation bilaterally Cardio Rate: regular rate Rhythm: regular rhythm GI Inspection: non-distended Palpation: soft and nontender Skin General: no rashes or lesions noted Neuro General: patient alert and patient oriented x3 Extrem General: full ROM Psych Appearance: grossly normal Mental Status: mental status grossly normal Assessment and Plan Assessment and Plan (1) Biliary dyskinesia: Status: Acute Plan: Patient has biliary dyskinesia with an ejection fraction of 0%. I discussed robotic assisted laparoscopic cholecystectomy with the patient. I discussed the procedure in detail with the patient. I discussed the risks, benefits, and alternatives of the procedure. I discussed the risks including but not limited to bleeding, infection, injury to surrounding organs such as theliver, bile duct, bowels. I did discuss the possibility of having to convert davidson open procedure as well as the possibility that if any injuries occurred this may necessitate further surgery at a tertiary care center. Luis Montelongo MD Pager: [facility] [address] [place] [address], [address] [place] [address] Office: Coding Level of Care Code Off vis,new,level 3 Diagnoses Biliary dyskinesia K82.8 Clinical Quality Measures Falls Risk Screening/Assistive Devices Have you fallen in the past year?: No 05/17/25 1500 <Electronically signed by Luis chatman MD> Date _ Luis Montelongo MD Cosigner Signature: Date (if applicable) CC: Dr. Karina Lassiter MD ~ [facility] Work Phone: 1(854) 836-501507-15-2025 Nuclear medicine Diagnostic study note [facility] Imaging Services [address] [place] [address] [id number] Hepatobilliary Img w/Pharm Int MR#: [id number] Acct: [id number] Name: SHANI HONG Rep #: [id number] : 1995 F 30 From: Aman Louie MD PCP: Dr. Karina Lassiter MD Status: REG CL I Study:Hepatobilliary Img w/Pharm Int Date of Exam: 05/04/25 Exam# [id number] Ordering Dr: Carol Ann Alonzo PROCEDURE: HEPATOBILLIARY IMG W/PHARM INT 05/04/2025 REASON FOR EXAM: ABD PAIN TECHNIQUE: Intravenous Choletec with planar imaging of the abdomen. 1.5 mcg Kinevac intravenously approximately 6 minutes after the radiopharmaceutical with additional anterior imaging and a region of interest drawn around the gallbladder to calculate a time-activity curve. RADIOPHARMACEUTICAL: Mebrofenin DOSE 5.8mCi COMPARISON: None FINDINGS: There is good uptake of the radiopharmaceutical by the liver. Normal gallbladder visualization with the gallbladder identified by 30 minutes. Gallbladder Ejection Fraction: 0 % (Normal is >35%) NM/Hepatobilliary Img w/Pharm Int IMPRESSION: Homogeneous uptake by the liver and excretion into the intra and extrahepatic biliary ducts. No gallbladder contraction at 29 minutes following the injection of CCK. Reading Location: [id number] CC: Dr. Karina Lassiter MD; GHANSHYAM Bartlett ~ Fertilizer Mixer: Signed [facility]07-07-2025 Radiology Diagnostic study note [facility] Services [address] [place] [address] Abdomen Limited MR#: [id number] Acct: [id number] Name: SHANI HONG Rep #: [id number] : 1995 F 30 From: Vidal Lobo DO PCP: Dr. Karina Lassiter MD Status: REG CL I Study:Abdomen Limited Date of Exam: 05/14 Exam# [id number] Ordering Dr: Carol Ann Alonzo PROCEDURE: ABDOMEN LIMITED 04/26/2025 REASON FOR EXAM: ABD PAIN TECHNIQUE: ABDOMEN LIMITED COMPARISON: CT abdomen and pelvis study dated 07/07/2024 FINDINGS: Liver: The liver measures 16 cm in length. Contour and echogenicity are within normal limits. No intrahepatic masses or intrahepatic biliary ductal dilatation is noted. There is hepatopetal flow. Flow is seen in the hepatic veins. Gallbladder: Gallbladder measures 7.2 cm. There are no stones or sludge seen within the gallbladder. Gallbladder wall is not thickened measuring 2 mm. There was a negative sonographic Pool sign. There is no pericholecysticfluid. Common bile duct measures 2 mm. Common bile duct: 2 mm Pancreas: Pancreatic size contour and echogenicity are within normal limits. Nopancreatic masses are seen. Kidneys: The right kidney measures 11.3 x 4.2 x 5.3 cm . The cortical thicknessmeasures 1.5 cm. Size contour echogenicity are within normal limits. There are no stones, masses or hydronephrosis. US/Abdomen Limited IMPRESSION: Stable right upper quadrant abdominal ultrasound examination. Reading Location: [id number] CC: Dr. Karina Lassiter MD; GHANSHYAM Bartlett ~ Fertilizer Mixer: Signed [facility]05-27-2025 Consult note [facility] Medical Records Department [address] [place] [address] Anesthesia Postop Eval I 03/16/25 1427 MR#: [id number] Acct: [id number] Name: MELANIESHANI ANN Rep #:[id number] : 1995 30 From: Marito West PCP: Dr. Karina Lassiter MD Status:REG SD C Y Race: C Location: EN Anesthesia: Postop Eval I Current Vital Signs Temperature: 98.9 F Pulse Rate: 89 Blood Pressure: 84/52 Respiratory Rate: 16 Pulse Ox: 99 Oxygen Delivery Method: Room Air Assessment Airway patent: Yes Spontaneous unlabored respirations: Yes Mental status: Awake and Calm nausea: No Vomiting: No Anesthesia Complication: No Fluid Hydration Crystalloid volume administer (ml): 700 Total IV fluid infused: 700 Progress Note Anesthesia document: Postop Eval 1 completed: Yes 03/16/251427 > Date _ Marito Kumar Signature: Date CC: ~ Signed [facility]05-27-2025 Procedure note [facility] Medical Records Department [address] [place] [address] Colonoscopy Report MR#: [id number] Acct: [id number] Name: SHANI HONG Rep #:[id number] : 1995 30 From: Sly Carson DO PCP: Dr. Karina Lassiter MD Status:REG SD C Patient Name: Shani Hong Procedure Date: 03/16/2025 2:01 PM Date of : 1995 Age: 30 Procedure: Colonoscopy Indications: Clinically significant diarrhea of unexplained origin Providers: Sly Carson DO Medicines: Monitored Anesthesia Care Patient Profile: This is a 30 year old female. Refer to note in patient chart for documentation of history and physical. Patient has symptoms of chronic abdominal cramping, chronic epigastric abdominal pain, chronic dyspepsia and chronic nausea. Last Colonoscopy: none. The patient's first colonoscopy is today. Complications: No immediate complications. Procedure: Pre-Anesthesia Assessment: - Prior to the procedure, a History and Physical was performed, and patient medications and allergies were reviewed. The patient is competent. The risks and benefits of the procedure and the sedation options and risks were discussed with the patient. All questions were answered and informed consent was obtained. Patient identification and proposed procedure were verified by the physician in the pre-procedure area. Mental Status Examination: alert and oriented. Airway Examination: normal oropharyngeal airway and neck mobility. Respiratory Examination: clear to auscultation. CV Examination: normal. ASA Grade Assessment: II - A patient with mild systemic disease. After reviewing the risks and benefits, the patient was deemed in satisfactory condition to undergo the procedure. The anesthesia plan was to use monitored anesthesia care (MAC). Immediately prior to administration of medications, the patient was re-assessed for adequacy to receive sedatives. The heart rate, respiratory rate, oxygen saturations, blood pressure, adequacy of pulmonary ventilation, and response to care were monitored throughout the procedure. The physical status of the patient was re-assessed after the procedure. After I obtained informed consent, the scope was passed under direct vision. Throughout the procedure, the patient's blood pressure, pulse, and oxygen saturations were monitored continuously. The Colonoscope was introduced through the anus and advanced to the terminal ileum. The colonoscopy was performed without difficulty. The patient tolerated the procedure well. The quality of the bowel preparation was adequate. The terminal ileum, ileocecal valve, appendiceal orifice, and rectum were photographed. Scope In: 2:03:44 PM Scope Withdrawal Time 0 hours 9 minutes 18 seconds Scope Out: 2:16:56 PM Total Procedure Duration Time 0 hours 13 minutes 12 seconds Findings: The perianal and digital rectal examinations were normal. An area of mildly congested mucosa was found in the rectum, in the sigmoid colon, at the hepatic flexure and in the ascending colon. Biopsies were taken with a cold forceps for histology. Verification of patient identification for the specimen was done. Estimated blood loss was minimal. Patchy mild inflammation characterized by congestion (edema) was found in the terminal ileum. Biopsies were taken with a cold forceps for histology. Verification of patient identification for the specimen was done. Estimated blood loss was minimal. Impression: - Congested mucosa in the rectum, in the sigmoid colon, at the hepatic flexure and in the ascending colon. Biopsied. - Mild inflammation was found in the ileum secondary to ileitis. Biopsied. Recommendation: - Discharge patient to home. - Resume previous diet. - Continue present medications. - Await pathology results. - Repeat colonoscopy for surveillance based on pathology results. Procedure Code(s): --- Professional --- 50275, Colonoscopy, flexible; with biopsy, single or multiple CPT copyright 2021 [employer] [employer]. All rights reserved. The codes documented in this report are preliminary and upon shop coordinator review may be revised to meet current compliance requirements. Sly Carson DO 03/16/2025 2:25:14 PM This report has been signed electronically. Number of Addenda: 0 Note Initiated On: 03/16/2025 2:01 PM 03/16/25 1425 Date _ Sly Carson DO Cosigner Signature: Date (if indicated) CC: Dr. Karina Lassiter MD; No Primary Care Physician; Sly Carson DO ~ Date Dictated: 03/16/25 1401 Date Transcribed: Fertilizer Mixer: RF Signed [facility]05-27-2025 Procedure note [facility] Medical Records Department [address] [place] [address] Operative Report - CC Letter MR#: [id number] Acct: [id number] Name: SHANI HONG JAMIL Rep #:[id number] : 1995 30 From: Sly Carson DO PCP: Dr. Karina Lassiter MD Status:REG SD C 03/16/2025 No Primary Care Physician Re : Colonoscopy procedure for Shani Hong Dear Care Physician This procedure was performed on Sunday, March 16, 2025. My impressions and recommendations are as follows: Impressions : - Congested mucosa in the rectum, in the sigmoid colon, at the hepatic flexure and in the ascending colon. Biopsied. - Mild inflammation was found in the ileum secondary to ileitis. Biopsied. Recommendations : - Discharge patient to home. - Resume previous diet. - Continue present medications. - Await pathology results. - Repeat colonoscopy for surveillance based on pathology results. My findings are described in the full procedure note, which is enclosed. If I can be of further assistance, please feel free to contact me at . Sincerely, Sly Carson DO 03/16/2025 2:25:14 PM This report has been signed electronically. 03/16/25 1425 Date _ Sly Yañezigntoo Signature: Date (if indicated) CC: Dr. Karina Lassiter MD; No Primary Care Physician; Sly Carson DO ~ Date Dictated: 03/16/25 1401 Date Transcribed: Fertilizer Mixer: RF Signed [facility]05-27-2025 Procedure note [facility] Medical Records Department [address] [place] [address] EGD Report MR#: [id number] Acct: [id number] Name: SHANI HONG JAMIL Rep #:[id number] : 1995 30 From: Sly Carson DO PCP: Dr. Karina Lassiter MD Status:REG SD C Patient Name: Shani Hong Procedure Date: 03/16/2025 1:44 PM Date of : 1995 Age: 30 Procedure: Upper GI endoscopy Indications: Epigastric abdominal pain, Diarrhea Providers: Sly Carson DO Medicines: Monitored Anesthesia Care Patient Profile: This is a 30 year old female. Refer to note in patient chart for documentation of history and physical. Patient has symptoms of chronic abdominal cramping, chronic epigastric abdominal pain, chronic dyspepsia and chronic nausea. Complications: No immediate complications. Procedure: Pre-Anesthesia Assessment: - Prior to the procedure, a History and Physical was performed, and patient medications and allergies were reviewed. The patient is competent. The risks and benefits of the procedure and the sedation options and risks were discussed with the patient. All questions were answered and informed consent was obtained. Patient identification and proposed procedure were verified by the physician in the pre-procedure area. Mental Status Examination: alert and oriented. Airway Examination: normal oropharyngeal airway and neck mobility. Respiratory Examination: clear to auscultation. CV Examination: normal. ASA Grade Assessment: II - A patient with mild systemic disease. After reviewing the risks and benefits, the patient was deemed in satisfactory condition to undergo the procedure. The anesthesia plan was to use monitored anesthesia care (MAC). Immediately prior to administration of medications, the patient was re-assessed for adequacy to receive sedatives. The heart rate, respiratory rate, oxygen saturations, blood pressure, adequacy of pulmonary ventilation, and response to care were monitored throughout the procedure. The physical status of the patient was re-assessed after the procedure. After obtaining informed consent, the endoscope was passed under direct vision. Throughout the procedure, the patient's blood pressure, pulse, and oxygen saturations were monitored continuously. The Colonoscope was introduced through the mouth, and advanced to the fourth part of the duodenum. Small bowel enteroscopy was deemed necessary. The upper GI endoscopy was accomplished without difficulty. The patient tolerated the procedure well. Scope In: 1:58:12 PM Scope Out: 2:01:42 PM Total Procedure Duration Time 0 hours 3 minutes 30 seconds Findings: The examined esophagus was normal. Patchy mildly erythematous mucosa without bleeding was found in the gastric body. Biopsies were taken with a cold forceps for histology. Verification of patient identification for the specimen was done. Estimated blood loss was minimal. Biopsies were taken with a cold forceps for Helicobacter pylori testing. Verification of patient identification for the specimen was done. Estimated blood loss was minimal. Patchy mild inflammation characterized by congestion (edema) was found in the first portion of the duodenum and in the second portion of the duodenum. Biopsies were taken with a cold forceps for histology. Verification of patient identification for the specimen was done. Estimated blood loss was minimal. Impression: - Normal esophagus. - Erythematous mucosa in the gastric body. Biopsied. - Duodenitis. Biopsied. Recommendation: - Discharge patient to home. - Resume previous diet. - Continue present medications. - Await pathology results. Procedure Code(s): --- Professional --- 83885, Small intestinal endoscopy, enteroscopy beyond second portion of duodenum, not including ileum; with biopsy, single or multiple CPT copyright 2021 [employer] [place] [employer]. All rights reserved. The codes documented in this report are preliminary and upon shop coordinator review may be revised to meet current compliance requirements. Syl Carson DO 03/16/2025 2:22:06 PM This report has been signed electronically. Number of Addenda: 0 Note Initiated On: 03/16/2025 1:44 PM 03/16/25 1422 Date _ Sly Carson DO Cosigner Signature: Date (if indicated) CC: Dr. Karina Lassiter MD; No Primary Care Physician; Sly Carson DO ~ Date Dictated: 03/16/25 1344 Date Transcribed: Fertilizer Mixer: RF Signed [facility]05-27-2025 Procedure note [facility] Medical Records Department [address] [place] [address] Operative Report - CC Letter MR#: [id number] Acct: [id number] Name: SHANI HONG Rep #:[id number] : 1995 30 From: Sly Carson DO PCP: Dr. Karina Lassiter MD Status:REG SD C 03/16/2025 No Primary Care Physician Re : Upper GI endoscopy procedure for Shani Hong Dear Care Physician This procedure was performed on Sunday, March 16, 2025. My impressions and recommendations are as follows: Impressions : - Normal esophagus. - Erythematous mucosa in the gastric body. Biopsied. - Duodenitis. Biopsied. Recommendations : - Discharge patient to home. - Resume previous diet. - Continue present medications. - Await pathology results. My findings are described in the full procedure note, which is enclosed. If I can be of further assistance, please feel free to contact me at . Sincerely, Sly Carson DO 03/16/2025 2:22:06 PM This report has been signed electronically. 03/16/25 1422 Date _ Sly Carson DO Cosigner Signature: Date (if indicated) CC: Dr. Karina Lassiter MD; No Primary Care Physician; Sly Carson DO ~ Date Dictated: 03/16/25 1344 Date Transcribed: Fertilizer Mixer: RF Signed [facility]05-27-2025 Evaluation note* Diagnosis Onset Date Resolution Status Admit Date Irritable bowel syndrome wit h diarrhea acute March 16, 2025 1 2:07pm Diarrhea inactive March 16, 2025 12:07pm Irritable bowel syndrome wit h diarrhea acute April 01, 2025 1:03pm Nausea acute April 01 1:03pm Abdominal pain inactive April 01, 2025 1:03pm [facility] Work Phone: 1(115) 997-329905-27-2025 Evaluation note* Diagnosis Onset Date Resolution Status Admit Date Irritable bowel syndrome wit h diarrhea acute March 16, 2025 1 2:07pm Diarrhea inactive March 16, 2025 12:07pm Irritable bowel syndrome wit h diarrhea acute April 01, 2025 1:03pm Nausea acute April 01 1:03pm Abdominal pain inactive April 01, 2025 1:03pm Biliary dyskinesia acute April 212024 2:40pm [facility] Work Phone: 1(674) 988-533305-27-2025 History and physical note [facility] Medical Records Department [address] [place] [address] History & Physical Exam 03/16/25 1346 MR#: [id number] Acct: [id number] Name: SHANI HONG Rep #:[id number] : 1995 30 From: Sly Carson DO PCP: Dr. Karina Lassiter MD Status:REG SD C Location: EN HPI - General General Date of Admission: 03/16/25 Date of Service: 03/16/25 Chief Complaint: diarrhea HPI Narrative SHANI HONG, is a 30 F who presents for evaluation of diarrhea BGI established 8..24 with painful urgent loose stools starting after course of doxycycline and prednisone for a throat infection. Started on Colestipol Biochemical work up 8..24; IBD sgi wnl, cbc wnl, cmp wnl, fecal elastase wnl, fecal fat wnl, IGA low, IGG low, calprotectin [address] abd/pelvis 9..24: Heterogeneous enlargement of the right ovary. Correlationwith pelvic sonogram recommended. IUD is seen within the uterus. Moderate amount of fecal material is seen in the colon. Mild splenomegaly. Last OV 12 Pt with improved symptoms on colestipol. Taking dicyclomine PRNfor abd pain. Happywith improvements OV 3..25; Pt has had worsening in her symptoms over the past month. Her abd pain is back. It is in the epigastric region and associated with bloating. She is nausea on most days but does not vomit.She is having loose stools up to 6 times per day. She takes colestipol 4 grams daily. [facility] Medical History (Updated 03/16/25 @ 13:[address] Heart Friend, ) Diarrhea Anxiety Alcohol use Insulin dependent diabetes mellitus History of renal disease Low iron Restless legs Migraine headache History of ulceration Gastric reflux Shortness of breath on exertion Non-smoker IBS (irritable bowel syndrome) Asthma Type 1 diabetes Physical exam, pre-employment Home Medications ?Medication ?Instructions ?Recorded ?Last Taken ?Type blood-glucose transmitter (Dexcom 05/07/24 Unknown Hi story G6 Transmitter device) insulin aspart U-100 100 unit/mL 100 unit subcut DAILY 05/07/24 Unknown History subcutaneous solution (Novolog U-100 Insulin aspart) albuterol sulfate 90 mcg/actuation 1 inh inhalation ON CE 06/10/24 Unknown History aerosol inhaler clonidine HCl 0.2 mg tablet 0.2 mg PO QHS 06/10/24 Unk nown History fluticasone furoate 100 1 inh inhalation DAILY 06/1003/16/25 History mcg-vilanterol 25 mcg/dose inhalation powder (Breo Ellipta) levonorgestrel 17.5 mcg/24 hr (up 1 device intrauterin e ONCE 06/10/24 Unknown History to 5 yrs) 19.5mg intrauterine device (Kyleena) hyoscyamine sulfate 0.125 mg tablet 0.125 mg PO BID-QI D PRN dyspepsia 11/27/24 Unknown Rx #30 tabs diphenoxylate-atropine 2.5 1 tab PO BID PRN diarrhea # 14 tabs 12/31/24 Unknown Rx mg-0.025 mg tablet (Lomotil) colestipol 1 gram tablet 4 g (4 x 1 gram) PO BID 1 mo nth 01/26/25 Unknown Rx #240 tabs melatonin 10 mg capsule 10 mg PO QHS PRN sleep 03/11 Unknown History Allergy/AdvReac Type Severity Reaction Status Date / Time acetaminophen AdvReac Mild Nausea/Vom/ Verified 03/16/25 12:46 Diarrhea amoxicillin AdvReac Mild Nausea/Vom/ Verified 03/16/25 12:46 Diarrhea Family History Mother Ulcerative colitis Surgical History Hx of colonoscopy Hx of toe surgery History of adenoidectomy Hx of tonsillectomy S/P nasal surgery Social History Smoking Status: Never smoker ROS Constitutional Constitutional: Denies fatigue, fever(s), poor appetite, weight gain or weight loss Gastrointestinal Gastrointestinal: Denies belching, bloating, change in bowel habits, change in stool character, chewing difficulty, coffee ground emesis, constipation, cramping, diarrhea, dyspepsia, dysphagia, earlysatiety, excessive flatus, fecalincontinence, heartburn, hematemesis, hematochezia, hemorrhoids, loose stools, melena, nausea, odynophagia, rectal bleeding, tenesmus, vomiting or weight changes Vital Signs Vital Signs Vital Signs: 03/16/25 12:49 03/16/25 12:49 03/16/25 13:17 Temperature 98.6 F 98.6 F Temperature Source Temporal Pulse Rate 113 H 113 H Respiratory Rate 18 18 Respiratory Pattern Normal Blood Pressure 131/73 H 131/73 H Blood Pressure Mean 92 Blood Pressure Source Monitor Blood Pressure Position Semi-Fowlers Blood Pressure Location Right Arm Pulse Ox 100 100 Oxygen Delivery Method Room Air Room Air Weight Weight: 166 lb 7.184 oz Body Mass Index (BMI) 29.5 Physical Exam Const alert, oriented x3, no apparent distress and healthy appearing General Appearance: cooperative GI normal to inspection, nondistended, normoactive bowel sounds, soft to palpation,non-tender and non-distended Percussion: normal to percussion Rectal Exam: deferred Results Lab / Micro Data Labs: Laboratory Results - last 24 hr 03/16/25 12:30: Urine Test Negative 03/16/25 12:36: POC Glucose 150 H Assessment & Plan Assessment/Plan (1) Irritable bowel syndrome with diarrhea: (2) Diarrhea: PLAN: Assessment and Plan Assessment and Plan (1) Nausea: Status: Acute Plan: This is a 29 yo female pt here today for f/u regarding her IBS symptoms. Pt had her symptoms under control up until about one month ago. She has complaints of nausea, bloating and epigastric pain. Last EGD was about 5 years ago. She will undergo repeat to assess her upper GI tract. She will also have GES to rule out gastroparesis as she has rf and symptoms. PT is having loose stools up to 6x perday while on 4 grams of colestipol daily. She will undergo colonoscopy to assessher colon for colitis. Calprotectin from 2023 was mildly elevated. She will continue taking colestipol and add lomotil PRN. -GES -EGD and colonoscopy -Continue Colestipol -Lomotil PRN -F/u after procedure (2) Irritable bowel syndrome with diarrhea: Status: Acute (3) Abdominal pain: Status: Inactive Qualifiers: Abdominal location: generalized Qualified Code(s): R10.84 - Generalizedabdominal pain Orders: Orders Gastric Emptying Study Today R11.0 - Nausea Medications: New diphenoxylate-atropine 2.5-0.025 mg (Lomotil) 1 TAB PO BID PRN 14 tabs 1RF diarrhea 03/16/25 1347 Cosigner Signature (if applicable): CC: Dr. Karina Lassiter MD; Sly Carson DO~ Signed [facility]05-27-2025 [facility] Medical Records Department [address] [place] [id number] History Physical Exam 03/16/25 1346 MR#: [id number] Acct: [id number] Name: SHANI HONG JAMIL Rep #: [id number] : 1995 30 From: Sly Carson DO PCP: Dr. Karina Lassiter MD Status[place]REG [facility] [place] HPI - General General Date of Admission: 03/16/25 Date of Service: 03/16/25 Chief Complaint: diarrhea HPI Narrative SHANI HONG, is a 30 F who presents for evaluation of diarrhea BGI established 06.10.24 with painful urgent loose stools starting after course of doxycycline and prednisone for a throat infection. Started on Colestipol Biochemical work up 06.12.24; IBD sgi wnl, cbc wnl, cmp wnl, fecal elastase wnl, fecal fat wnl, IGA low, IGG low, calprotectin [address] abd/pelvis 07.07.24: Heterogeneous enlargement of the right ovary. Correlation with pelvic sonogram recommended. IUD is seen within the uterus. Moderate amount of fecal material is seen in the colon. Mild splenomegaly. Last OV 12..24 Pt with improved symptoms on colestipol. Taking dicyclomine PRN for abd pain. Happy with improvements OV 3..25; Pt has had worsening in her symptoms over the past month. Her abd pain is back. It is in the epigastric region and associated with bloating. She is nausea on most days but does not vomit. She is having loose stools up to 6 times per day. She takes colestipol 4 grams daily. [facility] Medical History (Updated 03/16/25 @ 13:[address] Heart Friend, DO) Diarrhea Anxiety Alcohol use Insulin dependent diabetes mellitus History of renal disease Low iron Restless legs Migraine headache History of ulceration Gastric reflux Shortness of breath on exertion Non-smoker IBS (irritable bowel syndrome) Asthma Type 1 diabetes Physical exam, pre-employment Home Medications ???Medication ???Instructions ???Recorded ???Last Taken ???Type blood-glucose transmitter (Dexcom 05/07/24 Unknown History G6 Transmitter device) insulin aspart U-100 100 unit/mL 100 unit subcut DAILY 05/07/24 Unk nown History subcutaneous solution (Novolog U-100 Insulin aspart) albuterol sulfate 90 mcg/actuation 1 inh inhalation ONCE 06/10/24 U nknown History aerosol inhaler clonidine HCl 0.2 mg tablet 0.2 mg PO QHS 06/10/24 Unknown His tory fluticasone furoate 100 1 inh inhalation DAILY 06/10/24 History mcg-vilanterol 25 mcg/dose inhalation powder (Breo Ellipta) levonorgestrel 17.5 mcg/24 hr (up 1 device intrauterine ONCE Unknown History to 5 yrs) 19.5mg intrauterine device (Kyleena) hyoscyamine sulfate 0.125 mg tablet 0.125 mg PO BID-QID PRN dyspeps ia 11/27/24 Unknown Rx #30 tabs diphenoxylate-atropine 2.5 1 tab PO BID PRN diarrhea #14 tabs 12/31/24 Unknown Rx mg-0.025 mg tablet (Lomotil) colestipol 1 gram tablet 4 g (4 x 1 gram) PO BID 1 month Unknown Rx #240 tabs melatonin 10 mg capsule 10 mg PO QHS PRN sleep 03/11/25 Un known History Allergy/AdvReac Type Severity Reaction Status Date / Time acetaminophen AdvReac Mild Nausea/Vom/ Verified 03/16/25 12:46 Diarrhea amoxicillin AdvReac Mild Nausea/Vom/ Verified 03/16/25 12:46 Diarrhea Family History Mother Ulcerative colitis Surgical History Hx of colonoscopy Hx of toe surgery History of adenoidectomy Hx of tonsillectomy S/P nasal surgery Social History Smoking Status: Never smoker ROS Constitutional Constitutional: Denies fatigue, fever(s), poor appetite, weight gain or weight loss Gastrointestinal Gastrointestinal: Denies belching, bloating, change in bowel habits, change in stool character, chewing difficulty, coffee ground emesis, constipation, cramping, diarrhea, dyspepsia, dysphagia, early satiety, excessive flatus, fecal incontinence, heartburn, hematemesis, hematochezia, hemorrhoids, loose stools, melena, nausea, odynophagia, rectal bleeding, tenesmus, vomiting or weight changes Vital Signs Vital Signs Vital Signs: 03/16/25 12:49 03/16/25 12:49 03/16/25 13:17 Temperature 98.6 F 98.6 F Temperature Source Temporal Pulse Rate 113 H 113 H Respiratory Rate 18 18 Respiratory Pattern Normal Blood Pressure 131/73 H 131/73 H Blood Pressure Mean 92 Blood Pressure Source Monitor Blood Pressure Position Semi-Fowlers Blood Pressure Location Right Arm Pulse Ox 100 100 Oxygen Delivery Method Room Air Room Air Weight Weight: 166 lb 7.184 oz Body Mass Index (BMI) 29.5 Physical Exam Const alert, oriented x3, no apparent distress and healthy appearing General Appearance: coope (more content not included)...[facility]05-27-2025 Consult note [facility] Medical Records Department [address] [place] [address] Pre-Anesthesia Evaluation 03/16/25 1311 MR#: [id number] Acct: [id number] Name: SHANI HONG JAMIL Rep #:[id number] : 1995 30 From: John Cisneros MD PCP: Dr. Karina Lassiter MD Status:REG SD C Y Race: C Location: EN ASA Classification* ASA Classification ASA Classification: 2 Assessment & Plan Anesthesia* Anesthesia Assessment Anesthesia Assessment: Discussed sedation and/or anesthesia options, risks, benefits, and alternatives with patient/parents/legal guardian/POA. Questions invited. The patient/parents/legal guardian/POA seems to understand and agrees to proceedwith anesthesia plan. Reviewed the physical assessment, medical history, allergy history and patient home medications list prior to surgery/procedure/anesthetic and documented any changes. Performed airway and anesthesia risk assessments. Anesthesia Type Anesthesia Type: MAC History Source History Obtained from:: Patient and Chart Anesthesia Focused Assessment* Temperature: 98.6 F Pulse Rate: 113 Blood Pressure: 131/73 Respiratory Rate: 18 Pulse Ox: 100 Oxygen Delivery Method: Room Air Airway Assessment Mouth opens: >3 cm Mallampati Score: III Teeth Condition: Intact Neck Range of motion (ROM): Full ROM Focused Labs Anesthesia Preop lab: CBC WBC 8.5 K/mm3 (4.4-11.0) 06/06/24 02:06 06/06/24 RBC 4.59 M/mm3 (4.2-5.4) 06/06/24 02:06 06/06/24 Hgb 13.3 g/dL (12.0-15.0) 06/06/24 02:06 06/06/24 Hct 39.6 % (37-47) 06/06/24 02:06 06/06/24 Plt Count 233 K/mm3 (150-450) 06/06/24 02:06 06/06/24 CHEMISTRY Potassium 3.7 mmol/L (3.5-5.1) 06/06/24 02:06 06/06/24 Sodium 139 mmol/L (136-145) 06/06/24 02:06 06/06/24 Magnesium 2.0 mg/dL (1.6-2.6) 05/06/24 22:43 05/06/24 BUN 8 mg/dL (7-18) 06/06/24 02:06 06/06/24 Creatinine 0.70 mg/dL (0.55-1.02) 06/06/24 02:06 06/06/24 Glucose 154 mg/dL (74-106) H 06/06/24 02:06 06/06/24 POC Glucose 150 mg/dL (74-106) H 03/16/25 12:36 03/16/25 COAG Urine Test Negative Negative 03/16/25 12:30 03/16/25 Pre-Assessment Diagnosis/Proposed Procedure Planned Operative Procedure(s): CSCOPE/EGD Anesthesia History Anesthesia History - lens inspector: Anesthesia History - lens inspector Hx Hospitalization No 03/11/25 13:02 Any Problems With Anesthesia No 03/11/25 13:02 Cholinesterase deficiency No 03/11/25 13:02 You/Your Family Experience No 03/11/25 13:02 fever (hyperthermia) with Relationship Recent Exposure to Contagious No 03/16/25 12:49 Disease Does patient have nerve No 03/11/25 13:02 stimulator Patient instructed to have device shut off --Does patient have Pacemaker No 03/16/25 12:49 or ICD? When Was Last Pacemaker Check QUESTION #4 FULL TEXT: You/Your Family Experience fever (hyperthermia) with Anesthesia Last Oral Intake Last Oral intake: Last Oral Intake NPO since 09:00 03/16/25 12:49 Meds taken in AM with sips of No 03/16/25 12:49 water? Meds patient instructed to breo 03/16/25 12:49 take am of surgery Any additional information?: Yes NPO since: 09:00 (Patient finished her prep at 9 AM.) PONV PONV - lens inspector: PONV - lens inspector Female Yes 03/11/25 13:02 HX of Motion Sickness Yes 03/11/25 13:02 HX of N/V After Surgery No 03/11/25 13:02 Non-Smoker Yes 03/11/25 13:02 Duration of Surgery greater No 03/11/25 13:02 than 60 minutes Number of Risk Factors 3 03/11/25 13:02 PONV Score Moderate Risk 03/11/25 13:02 Height & Weight Height & Weight: Anesthesia: Height & Weight Height 5 ft 3 in 03/16/25 12:49 Weight: 75.5 kg 03/16/25 12:49 Body Mass Index (BMI) 29.5 03/16/25 12:49 Respiratory Assessment Respiratory Assessment - lens inspector: Respiratory Tract Infection Hx - lens inspector Hx Respiratory Tract Infection No 03/11/25 13:02 STOP Sleep Apnea STOP Sleep Apnea - lens inspector: STOP Sleep Apnea - lens inspector Hx Hypertension No 03/11/25 13:02 Hx Sleep Apnea No 03/11/25 13:02 CPAP BIPAP Do you snore loudly (louder No 03/11/25 13:02 than talking or can be heard Do you often feel tired/ No 03/11/25 13:02 fatigued/ sleepy during daytime? Has anyone observed you stop No 03/11/25 13:02 breathing during sleep? STOP Results Negative 03/11/25 13:02 QUESTION #5 FULL TEXT : Do you snore loudly (louder than talking or can be heard through closeddoors)? 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 Specify any problems Hx of Preganancy in last 3 No 03/11/25 13:02 Months Nurse Filling Out Transfusion DSCHRIBER 03/11/25 13:02 & Questions: Date: 03/11/25 03/11/25 13:02 Time: 13:03 03/11/25 13:02 Patient unable to answer at this time (ie. confused, unrespo /Reproduction History /Reproductive History - lens inspector: /Reproductive Hx- lens inspector Hx Now No 03/11/25 13:02 Gestational Age (in weeks): EDC: Hx Hx Para Hx Section SAB No 03/11/25 13:02 Active Medications Active Medications: Current Medications Generic Name Dose Route Start Last Admin Trade Name Freq PRN Reason Stop Dose Admin Lactated Ringer's 1,000 mls @ 15 mls/hr 03/16/25 12:30 03/16/25 12:48 IV 15 mls/hr .Q48H BÁRBARA Administration PFSH Medical History Anxiety Alcohol use Insulin dependent diabetes mellitus History of renal disease Low iron Restless legs Migraine headache History of ulceration Gastric reflux Shortness of breath on exertion Non-smoker IBS (irritable bowel syndrome) Asthma Type 1 diabetes Physical exam, pre-employment Home Medications ?Medication ?Instructions ?Recorded ?Last Taken ?Type blood-glucose transmitter (Dexcom 05/07/24 Unknown Hi story G6 Transmitter device) insulin aspart U-100 100 unit/mL 100 unit subcut DAILY 05/07/24 Unknown History subcutaneous solution (Novolog U-100 Insulin aspart) albuterol sulfate 90 mcg/actuation 1 inh inhalation ON CE 06/10/24 Unknown History aerosol inhaler clonidine HCl 0.2 mg tablet 0.2 mg PO QHS 06/10/24 Unk nown History fluticasone furoate 100 1 inh inhalation DAILY 06/1003/16/25 History mcg-vilanterol 25 mcg/dose inhalation powder (Breo Ellipta) levonorgestrel 17.5 mcg/24 hr (up 1 device intrauterin e ONCE 06/10/24 Unknown History to 5 yrs) 19.5mg intrauterine device (Kyleena) hyoscyamine sulfate 0.125 mg tablet 0.125 mg PO BID-QI D PRN dyspepsia 11/27/24 Unknown Rx #30 tabs diphenoxylate-atropine 2.5 1 tab PO BID PRN diarrhea # 14 tabs 12/31/24 Unknown Rx mg-0.025 mg tablet (Lomotil) colestipol 1 gram tablet 4 g (4 x 1 gram) PO BID 1 mo nth 01/26/25 Unknown Rx #240 tabs melatonin 10 mg capsule 10 mg PO QHS PRN sleep 03/11 Unknown History Allergy/AdvReac Type Severity Reaction Status Date / Time acetaminophen AdvReac Mild Nausea/Vom/ Verified 03/16/25 12:46 Diarrhea amoxicillin AdvReac Mild Nausea/Vom/ Verified 03/16/25 12:46 Diarrhea Family History Mother Ulcerative colitis Surgical History Hx of colonoscopy Hx of toe surgery History of adenoidectomy Hx of tonsillectomy S/P nasal surgery Social History Smoking Status: Never smoker Review of Systems (Anesthesia) ROS Narrative System reviewed and no additional complaints, except as documented. 03/16/25 1317 ceasar REYNOLDS> Date _ John Cisneros MD Cosigner Signature: Date CC: ~ Signed [facility]05-19-2025 History of Present illness Narrative* Yuliana Forde MA - 03/08/2025 11:00 AM EDT This Installment Account Checker verified the patients name and date of . Verified provider order for A1C POCT testing. This software writer then gathered the appropriate supplies for testing. Upon entering the room patient verified full name and . Followed by hand hygiene protocol and donned clean gloves. Cleaned patient's finger with alcohol pad and allowed area to air dry. Used a lancet and firmly pricked the finger allowing a drop of blood to form and wiped away. I allowed another medium size drop of blood to form before sampling, placed the pipet against the finger toobtain the blood sample. Placed sample in machine and allowed machine proper time to run for results. Notified provider of the result of 6.1 and documented in patient chart. Patient tolerated well, and denies any questions or concerns at this time. * Irena Hines APRN-[employer]ENS EDGE GRINDER MACHINE - 03/08/2025 11:00 AM EDT Images from the original note were not included. [facility] End[facility]inology[facility]abolism [facility] Telehealth CC: Type 1 Diabetes Mellitus (T1D); return patient Trina 52 year Medal: eligible [id number] Regimen: CSII-HCL Device: Tandem Control IQ and Dexcom G6 DME vendor: [employer] 01/16/24 Tandem- auto uploads to t:connect - (name as Fausto Hong) Dexcom linked to [facility] Clinical Care Team -Referring Provider for today's visit: Irena Hines, APR* -Primary Care Provider: Alma Chiu -[facility] Attending Physician: Melba Groves MD, PhD -[facility] VIKAS: not yet assigned History of Present Illness: Shani Hong is a 30 y.o. female with Type 1 Diabetes Mellitus (T1D) who presents [facility] today for discussion of her diabetes management. Review of glucose, BP and lipids show that she needs intensive glucose control but no statin or ACEi/ARB at this time She presents after 6 months for her 6 month return appt, with last MD appt on 01/16/2024. She did meet with education after her last visit for an insulin pump review. She reports she is noticing higher blood sugars with an IBS flare and her menstrual cycle. She reports absorption issues with her legs, arms, and upper abdomen. She is happy with her A1c in the 6's. She reports she is fearful of hypoglycemia especially at work. She works 3rd shift. She feels sugars are pretty stable. She has not made any recent changes to her insulin dosing. Lows are manageable. She does not think she would go low if she skips meals. No recent illness or hospitalization. Care Everywhere reviewed with no new notes or labs found. She is fairly confident in her carb counting. Apps used for Carb Counting: Shoutlet Lab Results Component Value Date HGBA1C 6.1 (A) 03/08/2025 She reports no recent illness or hospitalization. Care Everywhere reviewed including notes from [id number] and labs from 9155-8426. She has been on CSII since age 9 She has been using CGM since age 16/15 She uses arms and stomach for sensor and infusion sites. No injection site issues. She reports she can not use thighs because they are too muscular She boluses 0-15 min prior to or after meals. She admits to some missed doses. Hypoglycemia: yes. She does not have hypoglycemia unawareness. Espino Hypoglycemia Score: not available Frequency and timing of hypoglycemia: daily to weekly Severity of hypoglycemic episode: mild to severe Hypoglycemic threshold: 70s She is aware of hypoglycemic symptoms including weakness, shakiness, sweating, palpitations. She does have glucagon at home but thinks it is . Last call to EMS or hospitalization for hypoglycemia: none Home glucose monitoring: She did bring/send in glucose data to review. Current monitoring regimen: continuous use of CGM to plan/adjust prandial dosing and to assess & adjust basal dosing. 2 weeks were reviewed. Trends: Mild PP hyperglycemia, no hypoglycemia pattern Assessment / Impression: T1D managed with Tandem + Dexcom Review of glucose, BP and lipids show that she needs intensive glucose control but no statin or ACEi/ARB at this time. We discussed her glucose trends, management of symptoms of hypoglycemia, and plans for ongoing SMBGto assess glucose variability and hypoglycemia. Emphasized risk of severe hypoglycemia requiring frequent glucose monitoring and close attention to signs/symptoms. Discussed risks of complications with hyperglycemia, hypertension and dyslipidemia, including vision loss, kidney failure, amputation, stroke, heart attack and . We discussed targets of therapy including an A1c < 7%, BP < 140/80, lipid management, and weight management. Reviewed records, including chart notes & labs. Glucose: A1c level and trends reviewed and discussed Reviewed infusion sites and strategies for rotation Needs DM Education Needs to work on carb counting Needs to prebolus Needs CGM with alerts to prevent hypoglycemia Preconception counseling was reviewed with risks of hyperglycemia to mother and fetus discussed. Lipids: Lab Results Component Value Date LDLCALC 65 05/11/2024 Continue to monitor lipids. No indication for statin at this time. CV Risk: [email or web address] T1D CV risk calculator BP/Renal: BP Readings from Last 3 Encounters: 03/08/25 128/80 05/11/24 102/68 12/31/12 140/85 (>99 %, Z >2.33 / 98%, Z = 2.05)* *BP percentiles are based on the 2017 AAP Clinical Practice Guideline for girls She reports BP has been at target with normal POC ACR. She did take ACEi briefly around age 19 but ACR has been negative since stopping. Continue to monitor ACR, no indication for ACEi at this time Metabolic Syndrome: Body mass index is 29.58 kg/m . does not meet criteria for metabolic syndrome Thyroid: She did take LT4 from 2019 to summer 2022. Reports labs normal off meds. Due to check TPO & TSH Vitamin D: Diagnosed in 2019. Due to recheck level. Initiate repletion if level has gone back down. Annual Labs: due Refills: Spring/Fall Plan: Continue CGM with alerts to prevent hypoglycemia Changes to pump settings: Change corrections to 40, consider starting sleep mode Dental exam: Overdue- encouraged to schedule, patient declines Eye exam: Reminded to schedule 2024 appt Labs: Ordered We will always send the results through My Chart. Refills: Declined ketone strips & ondansetron Glucagon refills prn Requested Prescriptions Signed Prescriptions Disp Refills Continuous Glucose Sensor (Dexcom G7 Sensor) Misc 9 Each 3 Si Each by Unknown route every 10 days. Insulin Aspart (NovoLOG) 100 UNIT/ML injection 30 mL 9 Sig: as directed up to 100 units/day per insulin pump DxE10.65 Ondansetron 4 MG Tab Dispersible tablet 30 tablet 11 Sig: dissolve 1 tablet ON TONGUE every 8 hours if needed for nausea OR vomiting ASSOCIATED WITH SIGNS/SYMPTOMS OF DKA insulin glargine (Lantus SoloStar) 100 UNIT/ML Solution Pen-injector injection 15 mL 6 Sig: As directed up to 50 units daily in the event of pump failure DxE10.65 please hold for patientto request insulin aspart 100 UNIT/ML Solution Pen-injector injection 15 mL 6 Sig: As directed with meals and snacks up to 50 units daily DxE10.65 please hold for patient to request RTC: Return in about 6 months (around 09/08/2025) for T1D video visit with LENY Osborn . Diagnosis ICD-10-CM 1. Type 1 diabetes mellitus with hyperglycemia E10.65 2. Type 1 diabetes mellitus with hypoglycemia and without coma E10.649 3. 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 B12 (for PA) 2020: normal EK: NSR, no acute changes (see CE); no scan available : ; no current plans for but possibly around age 32. 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 She will be changing jobs to work at a [employer] Tobacco: She reports that she has never smoked. She has never used smokeless tobacco. Alcohol: She reports current alcohol use. Diabetes medications: Novolog insulin per Tandem pump Vaccines: Pneumonia due Tetanus Estimates 2021 Hepatitis none Shingles <50 y/o Immunization History Administered Date(s) Administered [id number] COVID-19 monovalent vaccine, mRNA, Pfizer, 0.3 ML 12/13/2020, 01/04/2021, 07/14/[id number] COVID-19 monovalent vaccine (Pfizer) 12yr +, 30mcg/0.3mL 03/12/2022 Hepatitis B Vaccine PEDS/ADOLES (ENGERIX-B / RECOMBIVAX HB 1995, 1997, 1997 Influenza Vaccine, Quadrivalent MDCK PF 09/26/2022 Tdap Vaccine 01/02/2012 Past Medical History: Diagnosis Date Asthma Environmental allergies Insulin pump status Kidney damage Type 1 diabetes mellitus (T1D) 1997 Past Surgical History: Procedure Laterality Date SEPTOPLASTY SMR WITH TURBINATE REDUCTION 2018 TONSILLECTOMY ADENOIDECTOMY Current Outpatient Medications Medication Instructions Albuterol (PROVENTIL) 2.5 mg, EVERY 6 HOURS NEEDED Baqsimi Two Pack 3 mg, Nasal, NEEDED, Dx. E10.65, E10.649 budesonide-formoterol 160-4.5 mcg/puff IN AERO 2 puffs, EVERY 12 HOURS cloNIDine 0.1 MG tablet NEEDED Colestid 4 g, NEEDED Continuous Glucose Sensor (Dexcom G7 Sensor) Misc 1 Each, Unknown, EVERY 10 DAYS hyoscyamine (LEVSIN) 125 mcg, NEEDED Insulin Aspart (NovoLOG) 100 UNIT/ML injection as directed up to 100 units/day per insulin pump DxE10.65 insulin aspart 100 UNIT/ML Solution Pen-injector injection As directed with meals and snacks up to 50 units daily DxE10.65 please hold for patient to request insulin glargine (Lantus SoloStar) 100 UNIT/ML Solution Pen-injector injection As directed up to 50units daily in the event of pump failure DxE10.65 please hold for patient to request Insulin Pen Needle 32G X 4 MM Misc As directed up to 6X daily with insulin pens in the event of pump failure DxE10.65 please hold for patient to request Levonorgestrel (Kyleena) 19.5 MG IUD 1 Intra Uterine Device, ONCE (OUTPT CLINIC) Montelukast (SINGULAIR) 10 mg, DAILY Ondansetron 4 MG Tab Dispersible tablet dissolve 1 tablet ON TONGUE every 8 hours if needed for nausea OR vomiting ASSOCIATED WITH SIGNS/SYMPTOMS OF DKA Urine Glucose-Ketones Test Strip As directed for signs/symptoms of DKA. DxE10.65 Allergies Allergen Reactions Acetaminophen Penicillins Family History Problem Relation Age of Onset Aneurysm Mother No known problems Father No known problems Brother Bleeding or Clotting Problems Maternal Grandfather Review of Systems: Per HPI. Gen: no fever, no chills, mild weight fluctuation Resp: no cough, no SOB CV: no chest pain, palpitations, chest tightness, or dyspnea of exertion. GI: no abd pain, nausea, or vomiting : no dysuria or hematuria. No nocturia Neuro: no tingling, numbness or burning sensation of feet. All other systems negative. Physical Exam General/Constitutional: Well-appearing female, who looks her stated age. No acute distress. Vitals: BP 128/80 (BP Location: Left arm, BP Position: Sitting) Pulse 93 Ht 1.6 m (5' 3) Wt 75.8 kg (167 lb) SpO2 99% BMI 29.58 kg/m Smoking Status Never Body mass index is 29.58 kg/m . BP Readings from Last 3 Encounters: 03/08/25 128/80 05/11/24 102/68 12/31/12 140/85 (>99 %, Z >2.33 / 98%, Z = 2.05)* *BP percentiles are based on the 2017 AAP Clinical Practice Guideline for girls Wt Readings from Last 3 Encounters: 03/08/25 75.8 kg (167 lb) 05/11/24 75.5 kg (166 lb 8 oz) 01/16/24 72.6 kg (160 lb) HEENT: Head: Normocephalic and atraumatic. Eyes: Sclerae are anicteric. Sclerae are not injected. Mouth: Oropharynx clear, mucous membranes moist Neck/Throat: no thyromegaly, no thyroid nodularity. Lymph: no cervical lymphadenopathy, Cardiovascular: Regular rate and rhythm. Normal S1, S2. No carotid bruits. Respiratory: Lungs are clear to ascultation bilaterally. normal lung expansion bilaterally GI: Abdomen is soft, non-distended, non-tender. Musculoskeletal: Normal muscle mass. Neurological: Pupils are equal, round. Extraocular movements are intact. No tremor with outstretched hands. Skin: Normal temperature. Normal texture. infusion sites are clean and dry Psych: Conscious, alert and oriented. Normal mood. Normal affect. Foot exam: no foot ulcer bilaterally, 2+ dorsalis pedis pulse bilaterally, sensation intact to a 10gram monofilament below the ankles. Vibration sense intact in the feet. Procedure / Imaging / Lab Data: Pertinent procedure/imaging/lab data was reviewed: A1c: POCT HEMOGLOBIN A1C Date Value Ref Range Status 03/08/2025 6.1 (A) 4.7 - 5.6 % Final 05/11/2024 6.3 (A) 4.7 - 5.6 % Final Hemoglobin A1C HPLC Date Value Ref Range Status 05/11/2024 5.9 (H) 4.7 - 5.6 % Final Lipids: Lab Results Component Value Date CHOLESTEROL 117 05/11/2024 TRIG 116 05/11/2024 HDL 29 (L) 05/11/2024 LDLCALC 65 05/11/2024 Thyroid: TSH Date Value Ref Range Status 05/11/2024 1.258 0.550 - 4.780 uIU/mL Final Anti-TPO Ab (Microsomal Ab) Date Value Ref Range Status 05/11/2024 57.3 <60.0 IU/mL Final Celiac: Tissue Transglutaminase, IgG Date Value Ref Range Status 05/11/2024 <1.2 <6.0 (Negative) U/mL Final Comment: Test Performed by: [facility] [address] [place] [address] Elevator Serviceman: Billy Lo Ph.D.; CLIA# [id number] No results found for: ENDOMYABIGA No results found for: GLIADNABIGA B12: Vitamin B12 Date Value Ref Range Status 05/11/2024 819 211 - 911 pg/mL Final Comment: Testing of Methylmalonic Acid and Intrinsic Factor Blocking Antibody are recommended if clinical suspicion for pernicious anemia due to B12 deficiency is high for patients with intermediate B12 levels (211 to 400 pg/mL) to rule out spurious heterophile antibodies. Vitamin D: 25-OH Vitamin D Total Date Value Ref Range Status 05/11/2024 22.0 (L) 30.0 - 100.0 ng/mL Final Comment: <10 Deficiency 10-29 Insufficiency 30-100 Optimal Level >100 Possible Toxicity Urine studies: Urine Creatinine Date Value Ref Range Status 05/11/2024 52.54 mg/dL Final Microalbumin Date Value Ref Range Status 05/11/2024 <7.0 mg/L Final Microalbumin/Creatinine Ratio Date Value Ref Range Status 05/11/2024 Final Comment: Not Calculated Computed FIB-4 Calculation unavailable. One or more values for this score either were not found within the given timeframe or did not fit some other criterion. SARS-COV-2 Date Value Ref Range Status 10/19/2020 Not Detected Not Detected Final Comment: This nucleic acid amplification test was developed and its performance characteristics determined by [facility]. Nucleic acid amplification tests include PCR and TMA. This test has not been FDA cleared or approved. This test has been authorized by FDA under an Emergency Use Authorization (EUA). This test is only authorized for the duration of time the declaration that circumstances exist justifying the authorization of the emergency use of in vitro diagnostic tests for detection of SARS-CoV-2 virus and/or diagnosis of COVID-19 infection under section 564(b)(1) of the Act, 21 U.S.C. 360bbb-3(b) (1), unless the authorization is terminated or revoked sooner. When diagnostic testing is negative, the possibility of a false negative result should be considered in the context of a patient's recent exposures and the presence of clinical signs and symptoms consistent with COVID-19. An individual without symptoms of COVID-19 and who is not shedding SARS-CoV-2 virus would expect to have a negative (not detected) result in this assay. 10/12/2020 Negative Negative Final Comment: Negative: SARS-CoV-2 not detected Testing did not identify the presence of SARS-CoV-2 (the virus that causes COVID-19) in the patient's sample. Many factors can impact the sensitivity of this test, including variability in sample collection technique, stage of infection, or the presence of interfering substances. Collection of multiple samples may be necessary to detect the SARS-CoV-2 virus. If clinically indicated, consider collecting a new sample for COVID-19 testing or testing for other respiratory viruses. This test was developed for the detection of nucleic acids from the SARS-CoV-2 virus by RT-PCR in individuals who meet SARS-CoV-2 clinical and/or epidemiological criteria. This test has not been FDA cleared or approved. This test has been authorized by FDA under an EUA for use by the authorized laboratory. This test is only authorized for the duration of time that the [place] of the [facility] declares circumstances exist justifying the authorization of the emergency use of in vitro diagnostic tests for detection of SARS-CoV-2 virus and/or diagnosis of COVID-19 infection under section 564(b)(1) of the Act, 21 U.S.C. 360bbb-3(b)(1), unless the authorization is terminatedor revoked sooner. Specimens that are self-collected were not tested with an internal control to confirm that the specimen was properly collected. As such, unsupervised self-collected specimens from SARS-CoV-2 positive individuals may yield negative results if the specimen was not collected properly. To learn more about this test, go to [email or web address]/[email or web address] Performed by: ABNER Hurt [id number], YUNIEL [id number], [address] [place] [address] Director Writing: Tai Garcia, PhD, [facility], [facility] [place] [place] ([facility]) 10/03/2020 Not Detected Not Detected Final Comment: This nucleic acid amplification test was developed and its performance characteristics determined by [facility]. Nucleic acid amplification tests include PCR and TMA. This test has not been FDA cleared or approved. This test has been authorized by FDA under an Emergency Use Authorization (EUA). This test is only authorized for the duration of time the declaration that circumstances exist justifying the authorization of the emergency use of in vitro diagnostic tests for detection of SARS-CoV-2 virus and/or diagnosis of COVID-19 infection under section 564(b)(1) of the Act, 21 U.S.C. 360bbb-3(b) (1), unless the authorization is terminated or revoked sooner. When diagnostic testing is negative, the possibility of a false negative result should be considered in the context of a patient's recent exposures and the presence of clinical signs and symptoms consistent with COVID-19. An individual without symptoms of COVID-19 and who is not shedding SARS-CoV-2 virus would expect to have a negative (not detected) result in this assay. RADIOLOGY EXAMINATION: THYROID ULTRASOUND 11/21/2020 COMPARISON: None. Reason for Exam: Goiter FINDINGS: Right thyroid lobe: 6.1 cm x 2.5 cm x 1.9 cm. Left thyroid lobe: 5.6 cm x 2.1 cm x 1.9 cm. Isthmus: 5 mm in AP dimension. Thyroid gland: Thyroid gland demonstrates normal echotexture and vascularity. Nodules: No thyroid nodules are present. Cervical lymphadenopathy: There is a benign architecture 2.3 cm x 1.3 cm x 7 mm lymph node zone IIIon the left. Orders Placed This Encounter TSH W/FT4 REFLEX LIPID PANEL W CALCULATED LDL CHEM 6 (LYTES, BUN CREA) HEPATIC FUNCTION PANEL VITAMIN D (25-HYDROXY,TOTAL) VITAMIN B12 POCT HEMOGLOBIN A1C DISCONTD: Insulin Aspart (NovoLOG) 100 UNIT/ML injection Continuous Glucose Sensor (Dexcom G7 Sensor) Misc Insulin Aspart (NovoLOG) 100 UNIT/ML injection Ondansetron 4 MG Tab Dispersible tablet insulin glargine (Lantus SoloStar) 100 UNIT/ML Solution Pen-injector injection insulin aspart 100 UNIT/ML Solution Pen-injector injection MICROALBUMIN,RANDOM URINE There are no Patient Instructions on file for this visit. Eye exam Health Maintenance This patient has no relevant Health Maintenance data. Foot Exam Health Maintenance This patient has no relevant Health Maintenance data. She paresthesias: See T1D Summary above Dental Exam Gum disease or referred for deep cleaning? See T1D Summary above [facility] * Diagnosis Onset Date Resolution Status Admit Date Irritable bowel syndrome wit h diarrhea acute December 31, 2024 12:58pm Nausea acute December 31 12:58pm Abdominal pain inactive December 12:58pm Irritable bowel syndrome wit h diarrhea acute March 16, 2025 1 2:07pm Diarrhea inactive March 16, 2025 12:07pm [facility] Work Phone: [phone]) 665-991503-13-2025 Evaluation note* Diagnosis Onset Date Resolution Status Admit Date Irritable bowel syndrome wit h diarrhea acute December 31, 2024 12:58pm Nausea acute December 31 12:58pm Abdominal pain inactive December 12:58pm Irritable bowel syndrome wit h diarrhea acute March 16, 2025 1 2:07pm Diarrhea inactive March 16, 2025 12:07pm Irritable bowel syndrome wit h diarrhea acute April 01, 2025 1:03pm Nausea acute April 01 1:03pm Abdominal pain inactive April 01, 2025 1:03pm [facility] Work Phone: [phone]) 885-483707-22-2024 History of Present illness Narrative* TIANA Domingo - 05/11/2024 10:00 AM EDT Images from the original note were not included. [facility] Endocrinology, Diabetes & Metabolism Clinic CC: Type 1 Diabetes Mellitus (T1D); return patient Trina 52 year Medal: eligible [id number] Regimen: CSII-HCL Device: Tandem Control IQ and Dexcom G6 DME vendor: Tandem 01/16/24 Tandem- auto uploads to t:connect - (name as Fausto Hong) Dexcom linked to [place] Clinical Care Team -Referring Provider for today's visit: Alma Chiu MD -Primary Care Provider: Alma Chiu -T1D Clinic Attending Physician: Melba Groves MD, PhD -T1D Clinic VIKAS: not yet assigned History of Present Illness: Shani Hong is a 29 y.o. female with Type 1 Diabetes Mellitus (T1D) who presents [facility]ology[facility] today for discussion of her diabetes management. Review of glucose, BP and lipids show that she needs intensive glucose control but no statin or ACEi/ARB at this time She presents after 4 months for her 3 month return appt, with last MD appt on 01/16/2024. She did meet with education after her last visit for an insulin pump review. Labs were ordered at last visit which she did not complete. She reports she is noticing higher blood sugars with an IBS flare. She is happy with her A1c in the 6's. She reports she is fearful of hypoglycemia. She reports snacking throughout the day without coverage. She feels sugars are pretty stable. She has not made any recent changes to her insulin dosing. Lows are manageable. She does not think she would go low if she skips meals. No recent illness or hospitalization. Care Everywhere reviewed with no new notes or labs found. She is fairly confident in her carb counting. Apps used for Carb Counting: Shoutlet Lab Results Component Value Date HGBA1C 6.3 (A) 05/11/2024 She reports no recent illness or hospitalization. Care Everywhere reviewed including notes from [id number] and labs from [id number]. She has been on CSII since age 9 She has been using CGM since age 16/15 She uses arms and stomach for sensor and infusion sites. No injection site issues. She reports she can not use thighs because they are too muscular She boluses 0-15 min prior to or after meals. She admits to some missed doses. Hypoglycemia: yes. She does not have hypoglycemia unawareness. Espino Hypoglycemia Score: not available Frequency and timing of hypoglycemia: daily to weekly Severity of hypoglycemic episode: mild to severe Hypoglycemic threshold: 70s She is aware of hypoglycemic symptoms including weakness, shakiness, sweating, palpitations. She does have glucagon at home but thinks it is . Last call to EMS or hospitalization for hypoglycemia: none Home glucose monitoring: She did bring/send in glucose data to review. Current monitoring regimen: continuous use of CGM to plan/adjust prandial dosing and to assess & adjust basal dosing. 2 weeks were reviewed. Trends: Mild PP hyperglycemia, no hypoglycemia Assessment / Impression: T1D managed with Tandem + Dexcom Review of glucose, BP and lipids show that she needs intensive glucose control but no statin or ACEi/ARB at this time. We discussed her glucose trends, management of symptoms of hypoglycemia, and plans for ongoing SMBGto assess glucose variability and hypoglycemia. Emphasized risk of severe hypoglycemia requiring frequent glucose monitoring and close attention to signs/symptoms. Discussed risks of complications with hyperglycemia, hypertension and dyslipidemia, including vision loss, kidney failure, amputation, stroke, heart attack and . We discussed targets of therapy including an A1c < 7%, BP < 140/80, lipid management, and weight management. Reviewed records, including chart notes & labs. Glucose: A1c level and trends reviewed and discussed Reviewed infusion sites and strategies for rotation Needs DM Education Needs to work on carb counting Needs to prebolus Needs CGM with alerts to prevent hypoglycemia Preconception counseling was reviewed with risks of hyperglycemia to mother and fetus discussed. Lipids: No results found for: LDLCALC, LDLDIRECT Continue to monitor lipids. No indication for statin at this time. CV Risk: [email or web address] T1D CV risk calculator BP/Renal: BP Readings from Last 3 Encounters: 05/11/24 102/68 12/31/12 140/85 (>99 %, Z >2.33 / 98%, Z = 2.05)* *BP percentiles are based on the 2017 AAP Clinical Practice Guideline for girls She reports BP has been at target with normal POC ACR. She did take ACEi briefly around age 19 but ACR has been negative since stopping. Continue to monitor ACR, no indication for ACEi at this time Metabolic Syndrome: Body mass index is 29.49 kg/m . does not meet criteria for metabolic syndrome Thyroid: She did take LT4 from 2019 to summer 2022. Reports labs normal off meds. Due to check TPO & TSH Vitamin D: Diagnosed in 2019. Due to recheck level. Initiate repletion if level has gone back down. Annual Labs: due Refills: Spring/Fall Plan: She needs to call RAMOS (Lázaro) to have annual form sent to us Continue CGM with alerts to prevent hypoglycemia She does not wish to upgrade to G7 No changes to pump settings today. We discussed rational for pre bolusing. We discussed the use of exercise mode. Dental exam: overdue Eye exam: Reminded to schedule 2023 appt Labs: Annual labs ordered at last visit and still need collected A1c standing order x 12 months entered 12/2023 We will always send the results through My Chart. Refills: Declined ketone strips & ondansetron Glucagon refills prn Requested Prescriptions No prescriptions requested or ordered in this encounter RTC: Return in about 4 months (around 09/11/2024) for T1D video visit with LENY Osborn . Diagnosis ICD-10-CM 1. Type 1 diabetes mellitus with hyperglycemia E10.65 2. Type 1 diabetes mellitus with hypoglycemia and without coma E10.649 Type 1 Diabetes (T1D) Summary Diagnosis Date: 1995 Insulin pump: Tandem with Control-IQ - she thinks OOW in CGM: Dexcom G6 Glucose Meter: generic Eye exam: January 2023: no REGISTERED NURSE RENAL Dental exam: Prior to COVID: no hx of gum disease Foot/MF exam: 04/2024 Urine Studies: Jul 2023: no albuminuria on POC Autoantibodies: Celiac : negative she does have IBS & GERD TPO 2020: negative. B12 (for PA) 2020: normal EK: NSR, no acute changes (see CE); no scan available : ; no current plans for but possibly around age 32. 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 She has never used smokeless tobacco. Alcohol: She reports current alcohol use. Diabetes medications: Novolog insulin per Tandem pump Vaccines: Pneumonia due Tetanus Estimates 2021 Hepatitis none Shingles <50 y/o Immunization History Administered Date(s) Administered [id number] COVID-19 monovalent vaccine, mRNA, Pfizer, 0.3 ML 12/13/2020, 01/04/2021, 07/14/[id number] COVID-19 monovalent vaccine (Pfizer) 12yr +, 30mcg/0.3mL 03/12/2022 Hepatitis B Vaccine PEDS/ADOLES (ENGERIX-B / RECOMBIVAX HB 1995, 1997, 1997 Influenza Vaccine, Quadrivalent MDCK PF 09/26/2022 Tdap Vaccine 01/02/2012 Past Medical History: Diagnosis Date Asthma Environmental allergies Insulin pump status Kidney damage Type 1 diabetes mellitus (T1D) 1997 Past Surgical History: Procedure Laterality Date SEPTOPLASTY SMR WITH TURBINATE REDUCTION 2018 TONSILLECTOMY ADENOIDECTOMY Current Outpatient Medications Medication Instructions Albuterol (PROVENTIL) 2.5 mg, Nebulization, EVERY 6 HOURS NEEDED Baqsimi Two Pack 3 mg, Nasal, NEEDED, Dx. E10.65, E10.649 budesonide-formoterol 160-4.5 mcg/puff IN AERO 2 puffs, Inhalation, EVERY 12 HOURS cloNIDine 0.1 MG tablet NEEDED Continuous Glucose Sensor (Dexcom G6 Sensor) Misc 1 Each, Subcutaneous, EVERY 10 DAYS, Dx E10.65; E10.649 Continuous Glucose Transmitter (Dexcom G6 Transmitter) Misc 1 Each, Instructed, EVERY 90 DAYS, Dx E10.65; E10.649 escitalopram 5 MG tablet Insulin Aspart (NovoLOG) 100 UNIT/ML injection as directed up to 100 units/day per insulin pump DxE10.65 insulin aspart 100 UNIT/ML Solution Pen-injector injection As directed with meals and snacks up to 50 units daily DxE10.65 please hold for patient to request insulin glargine (Lantus SoloStar) 100 UNIT/ML Solution Pen-injector injection As directed up to 50units daily in the event of pump failure DxE10.65 please hold for patient to request Insulin Pen Needle 32G X 4 MM Misc As directed up to 6X daily with insulin pens in the event of pump failure DxE10.65 please hold for patient to request Levonorgestrel (Kyleena) 19.5 MG IUD 1 Intra Uterine Device, Intrauterine, ONCE (OUTPT CLINIC) methylPREDNIsolone 4 MG Tab Therapy Pack tablet TAKE 6 TABLETS ON DAY 1 DIRECTED ON PACKAGE AND DECREASE BY 1 TAB EACH DAY FOR A TOTAL OF 6 DAYS Montelukast (SINGULAIR) 10 mg, Oral, DAILY Ondansetron (ZOFRAN-ODT) 4 mg, Oral, EVERY 8 HOURS NEEDED, For nausea associated with signs/symptoms of DKA DxE10.65 QUEtiapine 25 MG tablet take 1/2 to 1 tablet by mouth every evening if needed for sleep Sucralfate 1 g tablet NEEDED Urine Glucose-Ketones Test Strip As directed for signs/symptoms of DKA. DxE10.65 Allergies Allergen Reactions Acetaminophen Penicillins Family History Problem Relation Age of Onset No known problems Mother No known problems Father No known problems Brother Review of Systems: Per HPI. Gen: no fever, no chills, mild weight fluctuation Resp: no cough, no SOB CV: no chest pain, palpitations, chest tightness, or dyspnea of exertion. GI: no abd pain, nausea, or vomiting : no dysuria or hematuria. No nocturia Neuro: no tingling, numbness or burning sensation of feet. All other systems negative. Physical Exam General/Constitutional: Well-appearing female, who looks her stated age. No acute distress. Vitals: BP 102/68 (BP Location: Right arm, BP Position: Sitting) Pulse 87 Ht 1.6 m (5' 3) Wt75.5 kg (166 lb 8 oz) SpO2 99% BMI 29.49 kg/m Smoking Status Never Body mass index is 29.49 kg/m . BP Readings from Last 3 Encounters: 05/11/24 102/68 12/31/12 140/85 (>99 %, Z >2.33 / 98%, Z = 2.05)* *BP percentiles are based on the 2017 AAP Clinical Practice Guideline for girls Wt Readings from Last 3 Encounters: 05/11/24 75.5 kg (166 lb 8 oz) 01/16/24 72.6 kg (160 lb) HEENT: Head: Normocephalic and atraumatic. Eyes: Sclerae are anicteric. Sclerae are not injected. Mouth: Oropharynx clear, mucous membranes moist Neck/Throat: no thyromegaly, no thyroid nodularity. Lymph: no cervical lymphadenopathy, Cardiovascular: Regular rate and rhythm. Normal S1, S2. No carotid bruits. Respiratory: Lungs are clear to ascultation bilaterally. normal lung expansion bilaterally GI: Abdomen is soft, non-distended, non-tender. Musculoskeletal: Normal muscle mass. Neurological: Pupils are equal, round. Extraocular movements are intact. No tremor with outstretched hands. Skin: Normal temperature. Normal texture. infusion sites are clean and dry Psych: Conscious, alert and oriented. Normal mood. Normal affect. Foot exam: no foot ulcer bilaterally, 2+ dorsalis pedis pulse bilaterally, sensation intact to a 10gram monofilament below the ankles. Vibration sense intact in the feet. Procedure / Imaging / Lab Data: Pertinent procedure/imaging/lab data was reviewed: A1c: POCT HEMOGLOBIN A1C Date Value Ref Range Status 05/11/2024 6.3 (A) 4.7 - 5.6 % Final Lipids: No results found for: CHOLESTEROL, TRIG, HDL, LDLCALC, LDLDIRECT Thyroid: No results found for: TSH, T4FREE, ANTICHRAB Celiac: No results found for: TISSUETRANS No results found for: ENDOMYABIGA No results found for: GLIADNABIGA B12: No results found for: B12 Vitamin D: No results found for: [id number] Urine studies: No results found for: CREATURINE, MICROALBUMIN, MICALBCREAT Computed FIB-4 Calculation unavailable. One or more values for this score either were not found within the given timeframe or did not fit some other criterion. SARS-COV-2 Date Value Ref Range Status 10/19/2020 Not Detected Not Detected Final Comment: This nucleic acid amplification test was developed and its performance characteristics determined by [facility]. Nucleic acid amplification tests include PCR and TMA. This test has not been FDA cleared or approved. This test has been authorized by FDA under an Emergency Use Authorization (EUA). This test is only authorized for the duration of time the declaration that circumstances exist justifying the authorization of the emergency use of in vitro diagnostic tests for detection of SARS-CoV-2 virus and/or diagnosis of COVID-19 infection under section 564(b)(1) of the Act, 21 U.S.C. 360bbb-3(b) (1), unless the authorization is terminated or revoked sooner. When diagnostic testing is negative, the possibility of a false negative result should be considered in the context of a patient's recent exposures and the presence of clinical signs and symptoms consistent with COVID-19. An individual without symptoms of COVID-19 and who is not shedding SARS-CoV-2 virus would expect to have a negative (not detected) result in this assay. 10/12/2020 Negative Negative Final Comment: Negative: SARS-CoV-2 not detected Testing did not identify the presence of SARS-CoV-2 (the virus that causes COVID-19) in the patient's sample. Many factors can impact the sensitivity of this test, including variability in sample collection technique, stage of infection, or the presence of interfering substances. Collection of multiple samples may be necessary to detect the SARS-CoV-2 virus. If clinically indicated, consider collecting a new sample for COVID-19 testing or testing for other respiratory viruses. This test was developed for the detection of nucleic acids from the SARS-CoV-2 virus by RT-PCR in individuals who meet SARS-CoV-2 clinical and/or epidemiological criteria. This test has not been FDA cleared or approved. This test has been authorized by FDA under an EUA for use by the authorized laboratory. This test is only authorized for the duration of time that the General Internist And Physician Leader of the [facility] declares circumstances exist justifying the authorization of the emergency use of in vitro diagnostic tests for detection of SARS-CoV-2 virus and/or diagnosis of COVID-19 infection under section 564(b)(1) of the Act, 21 U.S.C. 360bbb-3(b)(1), unless the authorization is terminatedor revoked sooner. Specimens that are self-collected were not tested with an internal control to confirm that the specimen was properly collected. As such, unsupervised self-collected specimens from SARS-CoV-2 positive individuals may yield negative results if the specimen was not collected properly. To learn more about this test, go to https://www.OwnerIQ/pages/itbca90-evmorgd Performed by: ABNER Hurt [id number], YUNIEL [id number], [address] [facility] [address] [place] [address] Director Writing: Tai Garcia, PhD, [facility], [facility] [place] [facility] [place] ([facility]) 10/03/2020 Not Detected Not Detected Final Comment: This nucleic acid amplification test was developed and its performance characteristics determined by [facility]. Nucleic acid amplification tests include PCR and TMA. This test has not been FDA cleared or approved. This test has been authorized by FDA under an Emergency Use Authorization (EUA). This test is only authorized for the duration of time the declaration that circumstances exist justifying the authorization of the emergency use of in vitro diagnostic tests for detection of SARS-CoV-2 virus and/or diagnosis of COVID-19 infection under section 564(b)(1) of the Act, 21 U.S.C. 360bbb-3(b) (1), unless the authorization is terminated or revoked sooner. When diagnostic testing is negative, the possibility of a false negative result should be considered in the context of a patient's recent exposures and the presence of clinical signs and symptoms consistent with COVID-19. An individual without symptoms of COVID-19 and who is not shedding SARS-CoV-2 virus would expect to have a negative (not detected) result in this assay. RADIOLOGY EXAMINATION: THYROID ULTRASOUND 11/21/2020 COMPARISON: None. Reason for Exam: Goiter FINDINGS: Right thyroid lobe: 6.1 cm x 2.5 cm x 1.9 cm. Left thyroid lobe: 5.6 cm x 2.1 cm x 1.9 cm. Isthmus: 5 mm in AP dimension. Thyroid gland: Thyroid gland demonstrates normal echotexture and vascularity. Nodules: No thyroid nodules are present. Cervical lymphadenopathy: There is a benign architecture 2.3 cm x 1.3 cm x 7 mm lymph node zone IIIon the left. No orders of the defined types were placed in this encounter. There are no Patient Instructions on file for this visit. Eye exam Health Maintenance This patient has no relevant Health Maintenance data. Foot Exam Health Maintenance This patient has no relevant Health Maintenance data. She paresthesias: See T1D Summary above Dental Exam Gum disease or referred for deep cleaning? See T1D Summary above * Amarilis Deng - 05/11/2024 10:00 AM EDT 6.3Name and verified by this MA. documented in this [facility] Note Date/Time March 16, 2025 1:17p [facility] [address] [place] [address] Pre-Anesthesia Evaluation 03/16/25 1311 MR#: [id number] Acct: [id number] Name: SHANI HONG Rep #:[id number] : 1995 30 From: John Cisneros MD PCP: Dr. Karina Lassiter MD Status:REG SD C Y Race: C Location: EN ASA Classification* ASA Classification ASA Classification: 2 Assessment & Plan Anesthesia* Anesthesia Assessment Anesthesia Assessment: Discussed sedation and/or anesthesia options, risks, benefits, and alternatives with patient/parents/legal guardian/POA. Questions invited. The patient/parents/legal guardian/POA seems to understand and agrees to proceedwith anesthesia plan. Reviewed the physical assessment, medical history, allergy history and patient home medications list prior to surgery/procedure/anesthetic and documented any changes. Performed airway and anesthesia risk assessments. Anesthesia Type Anesthesia Type: MAC History Source History Obtained from:: Patient and Chart Anesthesia Focused Assessment* Temperature: 98.6 F Pulse Rate: 113 Blood Pressure: 131/73 Respiratory Rate: 18 Pulse Ox: 100 Oxygen Delivery Method: Room Air Airway Assessment Mouth opens: >3 cm Mallampati Score: III Teeth Condition: Intact Neck Range of motion (ROM): Full ROM Focused Labs Anesthesia Preop lab: CBC WBC 8.5 K/mm3 (4.4-11.0) 06/06/24 02:06 06/06/24 RBC 4.59 M/mm3 (4.2-5.4) 06/06/24 02:06 06/06/24 Hgb 13.3 g/dL (12.0-15.0) 06/06/24 02:06 06/06/24 Hct 39.6 % (37-47) 06/06/24 02:06 06/06/24 Plt Count 233 K/mm3 (150-450) 06/06/24 02:06 06/06/24 CHEMISTRY Potassium 3.7 mmol/L (3.5-5.1) 06/06/24 02:06 06/06/24 Sodium 139 mmol/L (136-145) 06/06/24 02:06 06/06/24 Magnesium 2.0 mg/dL (1.6-2.6) 05/06/24 22:43 05/06/24 BUN 8 mg/dL (7-18) 06/06/24 02:06 06/06/24 Creatinine 0.70 mg/dL (0.55-1.02) 06/06/24 02:06 06/06/24 Glucose 154 mg/dL (74-106) H 06/06/24 02:06 06/06/24 POC Glucose 150 mg/dL (74-106) H 03/16/25 12:36 03/16/25 COAG Urine Test Negative Negative 03/16/25 12:30 03/16/25 Pre-Assessment Diagnosis/Proposed Procedure Planned Operative Procedure(s): CSCOPE/EGD Anesthesia History Anesthesia History - lens inspector: Anesthesia History - lens inspector Hx Hospitalization No 03/11/25 13:02 Any Problems With Anesthesia No 03/11/25 13:02 Cholinesterase deficiency No 03/11/25 13:02 You/Your Family Experience No 03/11/25 13:02 fever (hyperthermia) with Relationship Recent Exposure to Contagious No 03/16/25 12:49 Disease Does patient have nerve No 03/11/25 13:02 stimulator Patient instructed to have device shut off --Does patient have Pacemaker No 03/16/25 12:49 or ICD? When Was Last Pacemaker Check QUESTION #4 FULL TEXT: You/Your Family Experience fever (hyperthermia) with Anesthesia Last Oral Intake Last Oral intake: Last Oral Intake NPO since 09:00 03/16/25 12:49 Meds taken in AM with sips of No 03/16/25 12:49 water? Meds patient instructed to breo 03/16/25 12:49 take am of surgery Any additional information?: Yes NPO since: 09:00 (Patient finished her prep at 9 AM.) PONV PONV - lens inspector: PONV - lens inspector Female Yes 03/11/25 13:02 HX of Motion Sickness Yes 03/11/25 13:02 HX of N/V After Surgery No 03/11/25 13:02 Non-Smoker Yes 03/11/25 13:02 Duration of Surgery greater No 03/11/25 13:02 than 60 minutes Number of Risk Factors 3 03/11/25 13:02 PONV Score Moderate Risk 03/11/25 13:02 Height & Weight Height & Weight: Anesthesia: Height & Weight Height 5 ft 3 in 03/16/25 12:49 Weight: 75.5 kg 03/16/25 12:49 Body Mass Index (BMI) 29.5 03/16/25 12:49 Respiratory Assessment Respiratory Assessment - lens inspector: Respiratory Tract Infection Hx - lens inspector Hx Respiratory Tract Infection No 03/11/25 13:02 STOP Sleep Apnea STOP Sleep Apnea - lens inspector: STOP Sleep Apnea - lens inspector Hx Hypertension No 03/11/25 13:02 Hx Sleep Apnea No 03/11/25 13:02 CPAP BIPAP Do you snore loudly (louder No 03/11/25 13:02 than talking or can be heard Do you often feel tired/ No 03/11/25 13:02 fatigued/ sleepy during daytime? Has anyone observed you stop No 03/11/25 13:02 breathing during sleep? STOP Results Negative 03/11/25 13:02 QUESTION #5 FULL TEXT : Do you snore loudly (louder than talking or can be heard through closed doors)? 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 Specify any problems Hx of Preganancy in last 3 No 03/11/25 13:02 Months Nurse Filling Out Transfusion DSCHRIBER 03/11/25 13:02 & Questions: Date: 03/11/25 03/11/25 13:02 Time: 13:03 03/11/25 13:02 Patient unable to answer at this time (ie. confused, unrespo /Reproduction History /Reproductive History - lens inspector: /Reproductive Hx- lens inspector Hx Now No 03/11/25 13:02 Gestational Age (in weeks): EDC: Hx Hx Para Hx Section SAB No 03/11/25 13:02 Active Medications Active Medications: Current Medications Generic Name Dose Route Start Last Admin Trade Name Freq PRN Reason Stop Dose Admin Lactated Ringer's 1,000 mls @ 15 mls/hr 03/16/25 12:30 03/16/25 12:48 IV 15 mls/hr .Q48H BÁRBARA Administration PFSH Medical History Anxiety Alcohol use Insulin dependent diabetes mellitus History of renal disease Low iron Restless legs Migraine headache History of ulceration Gastric reflux Shortness of breath on exertion Non-smoker IBS (irritable bowel syndrome) Asthma Type 1 diabetes Physical exam, pre-employment Home Medications ?Medication ?Instructions ?Recorded ?Last Taken ?Type blood-glucose transmitter (Dexcom 05/07/24 Unknown Hi story G6 Transmitter device) insulin aspart U-100 100 unit/mL 100 unit subcut DAILY 05/07/24 Unknown History subcutaneous solution (Novolog U-100 Insulin aspart) albuterol sulfate 90 mcg/actuation 1 inh inhalation ON CE 06/10/24 Unknown History aerosol inhaler clonidine HCl 0.2 mg tablet 0.2 mg PO QHS 06/10/24 Unk nown History fluticasone furoate 100 1 inh inhalation DAILY 06/1003/16/25 History mcg-vilanterol 25 mcg/dose inhalation powder (Breo Ellipta) levonorgestrel 17.5 mcg/24 hr (up 1 device intrauterin e ONCE 06/10/24 Unknown History to 5 yrs) 19.5mg intrauterine device (Kyleena) hyoscyamine sulfate 0.125 mg tablet 0.125 mg PO BID-QI D PRN dyspepsia 11/27/24 Unknown Rx #30 tabs diphenoxylate-atropine 2.5 1 tab PO BID PRN diarrhea # 14 tabs 12/31/24 Unknown Rx mg-0.025 mg tablet (Lomotil) colestipol 1 gram tablet 4 g (4 x 1 gram) PO BID 1 mo nth 01/26/25 Unknown Rx #240 tabs melatonin 10 mg capsule 10 mg PO QHS PRN sleep 03/11 Unknown History Allergy/AdvReac Type Severity Reaction Status Date / Time acetaminophen AdvReac Mild Nausea/Vom/ Verified 03/16/25 12:46 Diarrhea amoxicillin AdvReac Mild Nausea/Vom/ Verified 03/16/25 12:46 Diarrhea Family History Mother Ulcerative colitis Surgical History Hx of colonoscopy Hx of toe surgery History of adenoidectomy Hx of tonsillectomy S/P nasal surgery Social History Smoking Status: Never smoker Review of Systems (Anesthesia) ROS Narrative System reviewed and no additional complaints, except as documented. 03/16/25 1317 <Electronically signed by John mcdonough MD> Date _ John Cisneros MD Cosigner Signature: Date CC: ~ Signed [facility] Work Phone: Consult note Author Marito West [facility] Note Date/Time March 16, 2025 2:28p [facility] [address] [place] [id number] Anesthesia Postop Eval I 03/16/251426 MR#: [id number] Acct: [id number] Name: SHANI HONG JAMIL Rep #:[id number] : 1995 30 From: Marito West PCP: Dr. Karina Lassiter MD Status:REG SD C Y Race: C Location: EN Anesthesia: Postop Eval I Current Vital Signs Temperature: 98.9 F Pulse Rate: 89 Blood Pressure: 84/52 Respiratory Rate: 16 Pulse Ox: 99 Oxygen Delivery Method: Room Air Assessment Airway patent: Yes Spontaneous unlabored respirations: Yes Mental status: Awake and Calm nausea: No Vomiting: No Anesthesia Complication: No Fluid Hydration Crystalloid volume administer (ml): 700 Total IV fluid infused: 700 Progress Note Anesthesia document: Postop Eval 1 completed: Yes 03/16/251427 <Electronically signed by Marito West > Date _ Marito Kumar Signature: Date CC: ~ Signed [facility] Work Phone: Evaluation note* Diagnosis Type 1 diabetes mellitus with hyperglycemia- Primary Type I (juvenile type) diabetes mellitus without mention of complication, not stated as uncontrolled Type 1 diabetes mellitus with hypoglycemia and without coma Type I (juvenile type) diabetes mellitus with other specified manifestations, not stated as uncontrolled [facility] Diagnosis Type 1 diabetes mellitus with hyperglycemia- Primary Type I (juvenile type) diabetes mellitus without mention of complication, not stated as uncontrolled Type 1 diabetes mellitus with hypoglycemia and without coma Type I (juvenile type) diabetes mellitus with other specified manifestations, not stated as uncontrolled Insulin pump status [facility] this encounter [facility] Author Sly Carson [facility] Note Date/Time March 16, 2025 1:47p [facility] Medical Records Department [address] [place] [address] History & Physical Exam 03/16/25 1346 MR#: [id number] Acct: [id number] Name: SHANI HONG JAMIL Rep #:[id number] : 1995 30 From: Sly Carson PCP: Dr. Karina Lassiter MD Status:REG SD C Location: EN HPI - General General Date of Admission: 03/16/25 Date of Service: 03/16/25 Chief Complaint: diarrhea HPI Narrative SHANI HONG, is a 30 F who presents for evaluation of diarrhea BGI established 06.10.24 with painful urgent loose stools starting after course of doxycycline and prednisone for a throat infection. Started on Colestipol Biochemical work up 06.12.24; IBD sgi wnl, cbc wnl, cmp wnl, fecal elastase wnl, fecal fat wnl, IGA low, IGG low, calprotectin [address] abd/pelvis 07.07.24: Heterogeneous enlargement of the right ovary. Correlationwith pelvic sonogram recommended. IUD is seen within the uterus. Moderate amount of fecal material is seen in the colon. Mild splenomegaly. Last OV 09.29.24 Pt with improved symptoms on colestipol. Taking dicyclomine PRNfor abd pain. Happy with improvements OV 12.31.24; Pt has had worsening in her symptoms over the past month. Her abd pain is back. It is in the epigastric region and associated with bloating. She is nausea on most days but does not vomit. She is having loose stools up to 6 times per day. She takes colestipol 4 grams daily. [facility] Medical History (Updated 03/16/25 @ 13:[address] Heart Friend, DO) Diarrhea Anxiety Alcohol use Insulin dependent diabetes mellitus History of renal disease Low iron Restless legs Migraine headache History of ulceration Gastric reflux Shortness of breath on exertion Non-smoker IBS (irritable bowel syndrome) Asthma Type 1 diabetes Physical exam, pre-employment Home Medications ?Medication ?Instructions ?Recorded ?Last Taken ?Type blood-glucose transmitter (Dexcom 05/07/24 Unknown Hi story G6 Transmitter device) insulin aspart U-100 100 unit/mL 100 unit subcut DAILY 05/07/24 Unknown History subcutaneous solution (Novolog U-100 Insulin aspart) albuterol sulfate 90 mcg/actuation 1 inh inhalation ON CE 06/10/24 Unknown History aerosol inhaler clonidine HCl 0.2 mg tablet 0.2 mg PO QHS 06/10/24 Unk nown History fluticasone furoate 100 1 inh inhalation DAILY 06/1003/16/25 History mcg-vilanterol 25 mcg/dose inhalation powder (Breo Ellipta) levonorgestrel 17.5 mcg/24 hr (up 1 device intrauterin e ONCE 06/10/24 Unknown History to 5 yrs) 19.5mg intrauterine device (Kyleena) hyoscyamine sulfate 0.125 mg tablet 0.125 mg PO BID-QI D PRN dyspepsia 11/27/24 Unknown Rx #30 tabs diphenoxylate-atropine 2.5 1 tab PO BID PRN diarrhea # 14 tabs 12/31/24 Unknown Rx mg-0.025 mg tablet (Lomotil) colestipol 1 gram tablet 4 g (4 x 1 gram) PO BID 1 mo nth 01/26/25 Unknown Rx #240 tabs melatonin 10 mg capsule 10 mg PO QHS PRN sleep 03/11 Unknown History Allergy/AdvReac Type Severity Reaction Status Date / Time acetaminophen AdvReac Mild Nausea/Vom/ Verified 03/16/25 12:46 Diarrhea amoxicillin AdvReac Mild Nausea/Vom/ Verified 03/16/25 12:46 Diarrhea Family History Mother Ulcerative colitis Surgical History Hx of colonoscopy Hx of toe surgery History of adenoidectomy Hx of tonsillectomy S/P nasal surgery Social History Smoking Status: Never smoker ROS Constitutional Constitutional: Denies fatigue, fever(s), poor appetite, weight gain or weight loss Gastrointestinal Gastrointestinal: Denies belching, bloating, change in bowel habits, change in stool character, chewing difficulty, coffee ground emesis, constipation, cramping, diarrhea, dyspepsia, dysphagia, early satiety, excessive flatus, fecalincontinence, heartburn, hematemesis, hematochezia, hemorrhoids, loose stools, melena, nausea, odynophagia, rectal bleeding, tenesmus, vomiting or weight changes Vital Signs Vital Signs Vital Signs: 03/16/25 12:49 03/16/25 12:49 03/16/25 13:17 Temperature 98.6 F 98.6 F Temperature Source Temporal Pulse Rate 113 H 113 H Respiratory Rate 18 18 Respiratory Pattern Normal Blood Pressure 131/73 H 131/73 H Blood Pressure Mean 92 Blood Pressure Source Monitor Blood Pressure Position Semi-Fowlers Blood Pressure Location Right Arm Pulse Ox 100 100 Oxygen Delivery Method Room Air Room Air Weight Weight: 166 lb 7.184 oz Body Mass Index (BMI) 29.5 Physical Exam Const alert, oriented x3, no apparent distress and healthy appearing General Appearance: cooperative GI normal to inspection, nondistended, normoactive bowel sounds, soft to palpation,non-tender and non-distended Percussion: normal to percussion Rectal Exam: deferred Results Lab / Micro Data Labs: Laboratory Results - last 24 hr 03/16/25 12:30: Urine Test Negative 03/16/25 12:36: POC Glucose 150 H Assessment & Plan Assessment/Plan (1) Irritable bowel syndrome with diarrhea: (2) Diarrhea: PLAN: Assessment and Plan Assessment and Plan (1) Nausea: Status: Acute Plan: This is a 29 yo female pt here today for f/u regarding her IBS symptoms. Pt had her symptoms under control up until about one month ago. She has complaints of nausea, bloating and epigastric pain. Last EGD was about 5 years ago. She will undergo repeat to assess her upper GI tract. She will also have GES to rule out gastroparesis as she has rf and symptoms. PT is having loose stools up to 6x perday while on 4 grams of colestipol daily. She will undergo colonoscopy to assessher colon for colitis. Calprotectin from 2023 was mildly elevated. She will continue taking colestipol and add lomotil PRN. -GES -EGD and colonoscopy -Continue Colestipol -Lomotil PRN -F/u after procedure (2) Irritable bowel syndrome with diarrhea: Status: Acute (3) Abdominal pain: Status: Inactive Qualifiers: Abdominal location: generalized Qualified Code(s): R10.84 - Generalizedabdominal pain Orders: Orders Gastric Emptying Study Today R11.0 - Nausea Medications: New diphenoxylate-atropine 2.5-0.025 mg (Lomotil) 1 TAB PO BID PRN 14 tabs 1RF diarrhea 03/16/25 1347 <Electronically signed by Sly Carson DO> Cosigner Signature (if applicable): CC: Dr. Karina Lassiter MD; Sly Carson DO~ Signed [facility] Work Phone: Reason for referral (narrative)No reason for referral information availableWMercy Health [facility] Work Phone: Instructions * Patient Instructions - Jaxon Medellin II, MD - 03/26/2018 10:28 AM EDT Formatting of this note may be different from the original. Begin taking Nexium 20mg OTC instead of Prilosec. Follow up with a PCP: [email or web address] Gastroesophageal Reflux Disease (GERD): Care Instructions Your Care Instructions Gastroesophageal reflux disease (GERD) is the backward flow of stomach acid into the esophagus. Theesophagus is the tube that leads from your throat to your stomach. A one-way valve prevents the stomach acid from moving up into this tube. When you have GERD, this valve does not close tightly enough. If you have mild GERD symptoms including heartburn, you may be able to control the problem with antacids or atxx-mrj-owejdnz medicine. Changing your diet, losing weight, and making other lifestyle changes can also help reduce symptoms. Follow-up care is a adair part of your treatment and safety. Be sure to make and go to all appointments, and call your doctor if you are having problems. It's also a good idea to know your test resultsand keep a list of the medicines you take. How can you care for yourself at home? Take your medicines exactly as prescribed. Call your doctor if you think you are having a problem with your medicine. Your doctor may recommend jxlp-cyr-zaazcxj medicine. For mild or occasional indigestion, antacids, such as Tums, Gaviscon, Mylanta, or Maalox, may help. Your doctor also may recommend gqjz-fcz-rvqqeqm acid reducers, such as Pepcid AC, Tagamet HB, Zantac 75, or Prilosec. Read and follow all instructions on the label. If you use these medicines often, talk with your doctor. Change your eating habits. It's best to eat several small meals instead of two or three large meals. After you eat, wait 2 to 3 hours before you lie down. Chocolate, mint, and alcohol can make GERD worse. Spicy foods, foods that have a lot of acid (like tomatoes and oranges), and coffee can make GERD symptoms worse in some people. If your symptoms are worse after you eat a certain food, you may want to stop eating that food to see if your symptoms get better. Do not smoke or chew tobacco. Smoking can make GERD worse. If you need help quitting, talk to your doctor about stop-smoking programs and medicines. These can increase your chances of quitting for good. If you have GERD symptoms at night, raise the head of your bed 6 to 8 inches by putting the frame on blocks or placing a foam wedge under the head of your mattress. (Adding extra pillows does not work.) Do not wear tight clothing around your middle. Lose weight if you need to. Losing just 5 to 10 pounds can help. When should you call for help? Call your doctor now or seek immediate medical care if: ? You have new or different belly pain. ? Your stools are black and tarlike or have streaks of blood. ?Watch closely for changes in your health, and be sure to contact your doctor if: ? Your symptoms have not improved after 2 days. ? Food seems to catch in your throat or chest. Where can you learn more? Log into your personal health record on [email or web address] and enter T927 in the Education box to learn more about Gastroesophageal Reflux Disease (GERD): Care Instructions. Current as of: March 01, 2017 Content Version: 11.6 7158-4202 [employer]. Care instructions adapted under license by your healthcare professional. If you have questions about a medical condition or this instruction, always ask your healthcare professional. [employer] disclaims any warranty or liability for your use of this information. in this encounter Assessments Diagnosis Gastroesophageal reflux dise ase, esophagitis presence not specified - Primary Nausea Nausea alone Diagnosis Abdominal distention Flatulence, eructation, and gas pain Diarrhea, unspecified type Irritable bowel syndrome wit h diarrhea Irritable bowel syndrome Nausea Nausea alone Type 1 diabetes mellitus wit h other specified complication (HCC) Summary Purpose Family History No Family History Records Found Relationship Condition Age at Onset Recorded Date/T bruno mother Ulcerative colitis Unknown Advance Directives No Advanced Directives Records FoundDocuments on File Type Date Recorded 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 No March 11, 2025 1:02pm Chief Complaint and Reason for Visit Chief Complaint Admit Date 3 M FU December 31, 2024 12: 58pm Reason for Visit Admit Date Irritable bowel syndrome with diarrhea M arch 2024 12:58pm Nausea December 31, 2024 12: 58pm Abdominal pain December 31, 2024 12: 58pm Irritable bowel syndrome with diarrhea M ay 2024 12:07pm Diarrhea March 16, 2025 12:07 pm Chief Complaint Admit Date 3 M FU December 31, 2024 12: 58pm follow up April 01, 2025 1:03 pm Reason for Visit Admit Date Irritable bowel syndrome with diarrhea M arch 2024 12:58pm Nausea December 31, 2024 12: 58pm Abdominal pain December 31, 2024 12: 58pm Irritable bowel syndrome with diarrhea M ay 2024 12:07pm Diarrhea March 16, 2025 12:07 pm Irritable bowel syndrome with diarrhea J une 2024 1:03pm Nausea April 01, 2025 1:03 pm Abdominal pain April 01, 2025 1:03 pm Chief Complaint Admit Date 3 M FU December 31, 2024 12: 58pm follow up April 01, 2025 1:03 pm ABD PAIN, IBSD, NAUSEA April 26, 2025 7: 27am Chief Complaint Admit Date follow up April 01, 2025 1:03 pm ABD PAIN, IBSD, NAUSEA April 26, 2025 7: 27am ABD PAIN, IBSD, NAUSEA May 04, 2025 1 0:36am Reason for Visit Admit Date Irritable bowel syndrome with diarrhea M ay 2024 12:07pm Diarrhea March 16, 2025 12:07 pm Irritable bowel syndrome with diarrhea J une 2024 1:03pm Nausea April 01, 2025 1:03 pm Abdominal pain April 01, 2025 1:03 pm Chief Complaint Admit Date follow up April 01, 2025 1:03 pm ABD PAIN, IBSD, NAUSEA April 26, 2025 7: 27am ABD PAIN, IBSD, NAUSEA May 04, 2025 1 0:36am GALLBLADDER May 17, 2025 2:40 pm Reason for Visit Admit Date Irritable bowel syndrome with diarrhea M ay 2024 12:07pm Diarrhea March 16, 2025 12:07 pm Irritable bowel syndrome with diarrhea J une 2024 1:03pm Nausea April 01, 2025 1:03 pm Abdominal pain April 01, 2025 1:03 pm Biliary dyskinesia May 17, 2025 2:40 pm Additional Source Comments INFORMATION SOURCE (unrecogn ized section and content) DATE CREATED AUTHOR 04/10/2018 [facility] DATE CREATED AUTHOR AUTHOR'Tomas MALAVE 04/24/2018 [facility] DATE CREATED AUTHOR AUTHOR'S ORGANIZ ATION 11/28/2020 [facility] DATE CREATED AUTHOR AUTHOR[facility]S [facility]IZ ATION [facility] CREATED AUTHOR [facility]S [facility]IZ AT[facility] DATE CREATED AUTHOR AUTHOR'S ORGANIZ ATION 09/14/2021 [facility] DATE CREATED AUTHOR AUTHOR'S ORGANIZ ATION 06/25/2024 [facility] DATE CREATED AUTHOR AUTHOR'S ORGANIZ ATION 03/16/2025 [facility] DATE CREATED AUTHOR AUTHOR'S ORGANIZ ATION 07/04/2025 [facility] Care Teams (unrecognized sec tion and content) Program Services Planner Relationship Specialty Start Date End Date No, Physician [facility] PCP - General 03/21/18 Program Services Planner Relationship Specialty Start Date End Date Alma Chiu MD [address] [place] [address] PCP - General Pediatrics 12/31/12 Program Services Planner Relationship Specialty Start Date End Date Alma Chiu MD [address] [place] [address] PCP - General Pediatrics 12/31/12 Team Status: Active Member Role Status Dates Karina Lassiter MD Primary Care Provider Active Team Status: Inactive Member Role Status Dates No Primary Care Physician Primary Care Provider Active Start: December 31, 2024 End: December 31, 2024 No Primary Care Physician Referring Provider Active Start: December 31, 2024 End: December 31, 2024 GHANSHYAM Bartlett Attending Provider Active Start: December 31, 2024 End: December 31, 2024 Team Status: Inactive Member Role Status Dates Dr. Sly Carson DO Attending Provider Active Start: March 16, 2025 End: March 16, 2025 Karina Lassiter MD Primary Care Provider Active St art: March 16, 2025 End: March 16, 2025 Karina Lassiter MD Referring Provider Active Start : March 16, 2025 End: March 16, 2025 Team Status: Active Member Role Status Dates Dr. Sly Carson DO Attending Provider Active Start: March 16, 2025 Dr. Sly Carson , DO Other Provider Active St art: March 16, 2025 Karina Lassiter MD Primary Care Provider Active St art: March 16, 2025 Karina Lassiter MD Referring Provider Active Start : March 16, 2025 Team Status: Inactive Member Role Status Dates Karina Lassiter MD Primary Care Provider Active St art: April 01, 2025 End: April 01, 2025 Karina Lassiter MD Referring Provider Active Start : April 01, 2025 End: April 01, 2025 GHANSHYAM Bartlett Attending Provider Active Start: April 01, 2025 End: April 01, 2025 Team Status: Active Member Role/Relationship Status Dates Karina Lassiter MD Primary Care Provider Active Team Status: Inactive Member Role/Relationship Status Dates No Primary Care Physician Primary Care Provider Active Start: December 31, 2024 End: December 31, 2024 No Primary Care Physician Referring Provider Active Start: December 31, 2024 End: December 31, 2024 GHANSHYAM Bartlett Attending Provider Active Start: December 31, 2024 End: December 31, 2024 Team Status: Inactive Member Role/Relationship Status Dates Dr. Sly Carson DO Attending Provider Active Start: March 16, 2025 End: March 16, 2025 Karina Lassiter MD Primary Care Provider Active St art: March 16, 2025 End: March 16, 2025 Karina Lassiter MD Referring Provider Active Start : March 16, 2025 End: March 16, 2025 Team Status: Active Member Role/Relationship Status Dates Dr. Sly Carson DO Attending Provider Active Start: March 16, 2025 Dr. Sly Carson , Other Provider Active St art: March 16, 2025 Karina Lassiter MD Primary Care Provider Active St art: March 16, 2025 Karina Lassiter MD Referring Provider Active Start : March 16, 2025 Team Status: Inactive Member Role/Relationship Status Dates Karina Lassiter MD Primary Care Provider Active St art: April 01, 2025 End: April 01, 2025 Karina Lassiter MD Referring Provider Active Start : April 01, 2025 End: April 01, 2025 GHANSHYAM Bartlett Attending Provider Active Start: April 01, 2025 End: April 01, 2025 Team Status: Inactive Member Role/Relationship Status Dates Karina Lassiter MD Primary Care Provider Active St art: April 26, 2025 End: April 26, 2025 GHANSHYAM Bartlett Attending Provider Active Start: April 26, 2025 End: April 26, 2025 GHANSHYAM Bartlett Referring Provider Active Start: April 26, 2025 End: April 26, 2025 Team Status: Inactive Member Role/Relationship Status Dates Dr. Sly Carson DO Attending Provider Active Start: March 16, 2025 End: March 16, 2025 Karina Lassiter MD Primary Care Provider Active St art: March 16, 2025 End: March 16, 2025 Karina Lassiter MD Referring Provider Active Start : March 16, 2025 End: March 16, 2025 Team Status: Active Member Role/Relationship Status Dates Dr. Sly Carson DO Attending Provider Active Start: March 16, 2025 Dr. Sly Carson DO Other Provider Active St art: March 16, 2025 Karina Lassiter MD Primary Care Provider Active St art: March 16, 2025 Karina Lassiter MD Referring Provider Active Start : March 16, 2025 Team Status: Inactive Member Role/Relationship Status Dates Karina Lassiter MD Primary Care Provider Active St art: April 01, 2025 End: April 01, 2025 Karina Lassiter MD Referring Provider Active Start : April 01, 2025 End: April 01, 2025 GHANSHYAM Bartlett Attending Provider Active Start: April 01, 2025 End: April 01, 2025 Team Status: Inactive Member Role/Relationship Status Dates Karina Lassiter MD Primary Care Provider Active St art: April 26, 2025 End: April 26, 2025 GHANSHYAM Bartlett Attending Provider Active Start: April 26, 2025 End: April 26, 2025 GHANSHYAM Bartlett Referring Provider Active Start: April 26, 2025 End: April 26, 2025 Team Status: Inactive Member Role/Relationship Status Dates Karina Lassiter MD Primary Care Provider Active St art: May 04, 2025 End: May 04, 2025 GHANSHYAM Bartlett Attending Provider Active Start: May 04, 2025 End: May 04, 2025 GHANSHYAM Bartlett Referring Provider Active Start: May 04, 2025 End: May 04, 2025 Team Status: Inactive Member Role/Relationship Status Dates Karina Lassiter MD Primary Care Provider Active St art: May 17, 2025 End: May 17, 2025 Karina Lassiter MD Referring Provider Active Start : May 17, 2025 End: May 17, 2025 Dr. Luis Montelongo MD Attending Provider Active Start: May 17, 2025 End: May 17, 2025 Reason for Visit (unrecogniz ed section and content) Reason Comments Follow-up Diabetes FOR RECORDS PERTAINING TO PATIENTS WHO ARE OR HAVE BEEN ENROLLED IN A CHEMICAL DEPENDENCY/SUBSTANCEABUSE PROGRAM, SOME INFORMATION MAY BE OMITTED. This clinical summary was aggregated from multiple sources. Caution should be exercised in using it in the provision of clinical care. This summary normalizes information from multiple sources, and as a consequence, information in this document may materially change the coding, format and clinical context of patient data. In addition, data may be omitted in some cases. CLINICAL DECISIONS SHOULD BE BASED ON THE PRIMARY CLINICAL RECORDS. [employer] provides no warranty or guarantee of the accuracy or completeness of information in this document.
[2025-07-05] MEDS: Lactated Ringers 1,000 ML 15 ML IV (06:28)
[2025-07-05 06:29] LABS: Internal QC Validated? YES +Cl - CLEAR BKGD; Pregnancy, Urine Negative Negative; Record Kit Lot#,Urine Preg 0000964736
[2025-07-05] MEDS: INDOCYANINE GREEN 3.75 MG in Syringe 1.5 ML 999 MG IV (06:34)
--- NOTE | 2025-07-05 06:42 | PRE.ANES_ITS ---
ASA Classification* ASA Classification ASA Classification: 2 Assessment & Plan Anesthesia* Anesthesia Assessment Anesthesia Assessment: Discussed sedation and/or anesthesia options, risks, benefits, and alternatives with patient/parents/legal guardian/POA. Questions invited. The patient/parents/legal guardian/POA seems to understand and agrees to proceed with anesthesia plan. Reviewed the physical assessment, medical history, allergy history and patient home medications list prior to surgery/procedure/anesthetic and documented any changes. Performed airway and anesthesia risk assessments. Anesthesia Type Anesthesia Type: General Anesthesia Focused Assessment* Temperature: 98.9 F Pulse Rate: 97 Blood Pressure: 125/72 Respiratory Rate: 16 Pulse Ox: 99 Airway Assessment Mouth opens: >3 cm Mallampati Score: II Labs Anesthesia Preop lab: CBC WBC 8.5 K/mm3 (4.4-11.0) 06/06/24 02:06 06/06/24 RBC 4.59 M/mm3 (4.2-5.4) 06/06/24 02:06 06/06/24 Hgb 13.3 g/dL (12.0-15.0) 06/06/24 02:06 06/06/24 Hct 39.6 % (37-47) 06/06/24 02:06 06/06/24 Plt Count 233 K/mm3 (150-450) 06/06/24 02:06 06/06/24 CHEMISTRY Potassium 4.2 mmol/L (3.3-5.1) 06/29/25 13:14 06/29/25 Sodium 141 mmol/L (133-145) 06/29/25 13:14 06/29/25 Magnesium 2.0 mg/dL (1.6-2.6) 05/06/24 22:43 05/06/24 BUN 11 mg/dL (4-19) 06/29/25 13:14 06/29/25 Creatinine 0.67 mg/dL (0.70-1.20) L 06/29/25 13:14 Glucose 110 mg/dL (70-99) H 06/29/25 13:14 06/29/25 POC Glucose 150 mg/dL (74-106) H 03/16/25 12:36 03/16/25 COAG Urine Test Negative Negative 07/05/25 06:20 07/05/25 Pre-Assessment Diagnosis/Proposed Procedure Planned Operative Procedure(s): (N/A) Robotic Cholecystectomy Anesthesia History Anesthesia History - educational aide: Anesthesia History - educational aide Hx Hospitalization No 06/22/25 11:22 Any Problems With Anesthesia No 06/22/25 11:22 Cholinesterase deficiency No 06/22/25 11:22 You/Your Family Experience No 06/22/25 11:22 fever (hyperthermia) with Relationship Recent Exposure to Contagious No 07/05/25 06:24 Disease Does patient have nerve No 06/22/25 11:22 stimulator Patient instructed to have device shut off --Does patient have Pacemaker No 07/05/25 06:24 or ICD? When Was Last Pacemaker Check QUESTION #4 FULL TEXT: You/Your Family Experience fever (hyperthermia) with Anesthesia Last Oral Intake Last Oral intake: Last Oral Intake NPO since 23:30 07/05/25 06:24 Meds taken in AM with sips of No 07/05/25 06:24 water? Meds patient instructed to take am of surgery PONV PONV - educational aide: PONV - educational aide Female Yes 06/22/25 11:22 HX of Motion Sickness Yes 06/22/25 11:22 HX of N/V After Surgery Yes 06/22/25 11:22 Non-Smoker Yes 06/22/25 11:22 Duration of Surgery greater Yes 06/22/25 11:22 than 60 minutes Number of Risk Factors 5 06/22/25 11:22 PONV Score Severe Risk 06/22/25 11:22 Height & Weight Height & Weight: Anesthesia: Height & Weight Height 5 ft 3 in 07/05/25 06:24 Weight: 76 kg 07/05/25 06:24 Body Mass Index (BMI) 29.7 07/05/25 06:24 Respiratory Assessment Respiratory Assessment - educational aide: Respiratory Tract Infection Hx - educational aide Hx Respiratory Tract Infection No 06/22/25 11:22 STOP Sleep Apnea STOP Sleep Apnea - educational aide: STOP Sleep Apnea - educational aide Hx Hypertension No 06/22/25 11:22 Hx Sleep Apnea No 06/22/25 11:22 CPAP BIPAP Do you snore loudly (louder No 06/22/25 11:22 than talking or can be heard Do you often feel tired/ No 06/22/25 11:22 fatigued/ sleepy during daytime? Has anyone observed you stop No 06/22/25 11:22 breathing during sleep? STOP Results Negative 06/22/25 11:22 QUESTION #5 FULL TEXT : Do you snore loudly (louder than talking or can be heard through closed doors)? Tobacco Use History Tobacco Use History - educational aide: Tobacco Use History - educational aide Tobacco Use Smoking Status Never smoker 06/22/25 11:22 Hx Tobacco Use No 06/22/25 11:22 Years Smoking Packs Smoked per Day Smoking Cessation Date was within the last 15 years Hx Smoking Cessation Date Hx Smoking Cessation Counseling Hematologic Medial History Hematologic Hx - educational aide: Hematologic Medical Hx - clarification operator Hx of Blood Transfusion No 06/22/25 11:22 Hx of Transfusion in last 3 No 06/22/25 11:22 Months Date of Last Transfusion (if within last 3 months) Ever experience any problems No 06/22/25 11:22 with transfusion(s)? Specify any problems Hx of Preganancy in last 3 No 06/22/25 11:22 Months Nurse Filling Out Transfusion MGRIFFITH 06/22/25 11:22 & Questions: Date: 06/22/25 06/22/25 11:22 Time: 11:23 06/22/25 11:22 Patient unable to answer at this time (ie. confused, unrespo /Reproduction History /Reproductive History - educational aide: /Reproductive Hx- educational aide Hx Now No 06/22/25 11:22 Gestational Age (in weeks): EDC: Hx Hx Para Hx Section SAB No 06/22/25 11:22 Active Medications Active Medications: Current Medications Generic Name Dose Route Start Last Admin Trade Name Freq PRN Reason Stop Dose Admin Indocyanine Green 3.75 mg/ N/A 1.5 mls @ 999 mls/hr 07/05/25 07:30 07/05/25 06:34 IV 07/05/25 07:31 999 mls/hr PREOP ONE Administration Clindamycin Phosphate 900 mg in 50 mls @ 75 mls/hr 07/05/25 07:30 Cleocin IV 07/05/25 08:09 INTRAOP ONE Lactated Ringer's 1,000 mls @ 15 mls/hr 07/05/25 06:15 07/05/25 06:28 IV 15 mls/hr .Q48H BÁRBARA Administration PFSH Medical History PONV (postoperative nausea and vomiting) Anxiety Alcohol use Insulin dependent diabetes mellitus History of renal disease Low iron Restless legs Migraine headache History of ulceration Gastric reflux Shortness of breath on exertion Non-smoker IBS (irritable bowel syndrome) Asthma Type 1 diabetes Diarrhea Physical exam, pre-employment Home Medications ?Medication ?Instructions ?Recorded ?Last Taken ?Type blood-glucose transmitter (Dexcom 05/07/24 Unknown Hi story G6 Transmitter device) insulin aspart U-100 100 unit/mL 100 unit subcut DAILY 05/07/24 Unknown History subcutaneous solution (Novolog U-100 Insulin aspart) albuterol sulfate 90 mcg/actuation 1 inh inhalation ON CE 06/10/24 07/05/25 05:30 History aerosol inhaler clonidine HCl 0.2 mg tablet 0.2 mg PO QHS 06/10/24 Unk nown History fluticasone furoate 100 1 inh inhalation DAILY 06/1003/16/25 History mcg-vilanterol 25 mcg/dose inhalation powder (Breo Ellipta) levonorgestrel 17.5 mcg/24 hr (up 1 device intrauterin e ONCE 06/10/24 Unknown History to 5 yrs) 19.5mg intrauterine device (Kyleena) diphenoxylate-atropine 2.5 1 tab PO BID PRN diarrhea # 14 tabs 12/31/24 Unknown Rx mg-0.025 mg tablet (Lomotil) colestipol 1 gram tablet 4 g (4 x 1 gram) PO BID 1 mo nth 01/26/25 Unknown Rx #240 tabs melatonin 10 mg capsule 10 mg PO QHS PRN sleep 03/11 Unknown History hyoscyamine sulfate 0.125 mg tablet 0.125 mg PO BID-QI D PRN dyspepsia 05/25/25 Unknown Rx #30 tabs promethazine 12.5 mg tablet 12.5 mg PO TID PRN nausea and 06/04/25 07/04/25 Rx vomiting #20 tabs omeprazole 40 mg capsule,delayed 40 mg PO QHS 06/22/25 Unknown History release ondansetron 4 mg disintegrating 4 mg PO Q8H PRN PRN na usea/vomiting 06/22/25 Unknown History tablet Allergy/AdvReac Type Severity Reaction Status Date / Time acetaminophen AdvReac Mild Nausea/Vom/ Verified 07/05/25 06:22 Diarrhea amoxicillin AdvReac Mild Nausea/Vom/ Verified 07/05/25 06:22 Diarrhea Family History Mother Ulcerative colitis Surgical History History of esophagogastroduodenoscopy (EGD) Hx of colonoscopy Hx of toe surgery History of adenoidectomy Hx of tonsillectomy S/P nasal surgery Social History Smoking Status: Never smoker Review of Systems (Anesthesia) ROS Narrative System reviewed and no additional complaints, except as documented.
--- NOTE | 2025-07-05 06:59 | PCM.HP.BLA ---
History and Physical Date of Admission: 07/05/25 Intake Vital Signs 03/16/2512:49 05/17/2514:53 Height 5 ft 3 in 5 ft 3 in Weight: 169 lb BMI 29.9 BP 134/82 H Blood Pressure Location Rt brachial Position Sitting Respiration 16 Intake Visit Reasons: GALLBLADDER Chief Complaint: abn hida scan Certified Surgical Technician Required: No Is patient in pain?: No Allergies acetaminophen Adverse Reaction (Mild, Verified 05/17/25 14:54) Nausea/Vom/Diarrheaamoxicillin Adverse Reaction (Mild, Verified 05/17/25 14:54) Nausea/Vom/Diarrhea Medications ?Medication ?Instructions ?Recorded ?Confirmed ?Type blood-glucose transmitter (Dexcom 05/07/24 05/17/25 History G6 Transmitter device) insulin aspart U-100 100 unit/mL 100 unit subcut DAILY 05/07/24 05/17/25 History subcutaneous solution (Novolog U-100 Insulin aspart) albuterol sulfate 90 mcg/actuation 1 inh inhalation ONCE 06/10/24 05/17/25 History aerosol inhaler clonidine HCl 0.2 mg tablet 0.2 mg PO QHS 06/10/24 05/17/25 History fluticasone furoate 100 1 inh inhalation DAILY 06/10/24 05/17/25 History mcg-vilanterol 25 mcg/dose inhalation powder (Breo Ellipta) levonorgestrel 17.5 mcg/24 hr (up 1 device intrauterine ONCE 06/10/24 05/17/25 History to 5 yrs) 19.5mg intrauterine device (Kyleena) hyoscyamine sulfate 0.125 mg tablet 0.125 mg PO BID-QID PRN dyspepsia 11/27/24 05/17/25 Rx #30 tabs diphenoxylate-atropine 2.5 1 tab PO BID PRN diarrhea #14 tabs 12/31/24 05/17/25 Rx mg-0.025 mg tablet (Lomotil) colestipol 1 gram tablet 4 g (4 x 1 gram) PO BID 1 month 01/26/25 05/17/25 Rx #240 tabs melatonin 10 mg capsule 10 mg PO QHS PRN sleep 03/11/25 05/17/25 History omeprazole 40 mg capsule,delayed 40 mg PO QDAY #30 caps 03/25/25 05/17/25 Rx release Have you fallen in the past year?: No PFSH Medical History Diarrhea Anxiety Alcohol use Insulin dependent diabetes mellitus History of renal disease Low iron Restless legs Migraine headache History of ulceration Gastric reflux Shortness of breath on exertion Non-smoker IBS (irritable bowel syndrome) Asthma Type 1 diabetes Physical exam, pre-employment Surgical History Hx of colonoscopy Hx of toe surgery History of adenoidectomy Hx of tonsillectomy S/P nasal surgery Family History Mother Ulcerative colitis Social History Smoking Status: Never smoker HPI HPI HPI: Patient is a 30-year-old female with biliary dyskinesia. Patient notes that she has been having diarrhea as well as epigastric discomfort with fatty meals. She reports that she has cramping as well. She has been getting worked up for this by GI and they ordered a HIDA which showed a 0% ejection fraction. ROS General General: Yes fatigue; No weight change, appetite, colon cancer, breast cancer or weakness HEENT HEENT: No difficulty swallowing, eye injury, eye surgery, swollen glands or hoarseness Endo Endocrine: Yes diabetes mellitus; No thyroid disease, thyroid cancer, Hair loss, heat intolerance or cold intolerance Skin Skin: No rash or changing moles Breast Breast: No left breast lump, right breast lump, nipple discharge, breast pain, abnormal mammogram, abnormal US or breast enlargement Musc Musculoskeletal: No back problems, arthritis, rheumatoid arthritis, gout or joint pain Cardio Cardiovascular: No murmur, pacemaker, heart disease, atrial fibrillation, high blood pressure, heart attack, heart stent, palpitations, shortness of breath with exertion or chest pain Psych Psychiatric: Yes anxiety; No depression or hearing voices Resp Respiratory: Yes shortness of breath, No sleep apnea, No cough, No COPD, Yes asthma, No emphysema and No wheezing Gastro Gastrointestinal: Yes abdominal pain, Yes nausea or vomiting, Yes diarrhea, Yes constipation, No blood in stool, Yes acid reflux, No hemorrhoids, No ulcers, Yes gallbladder problem and No black,tarry stools Mani Hematologic: No blood thinners, No blood disorders, No bleeding, No anemia and No blood clots Neuro Neurologic: No system reviewed and no additional complaints, except as documented, No as per HPI, No abnormal gait, No abnormal hearing, No abnormal movements, No abnormal speech, No behavioral changes, No burning sensations, No confusion, No convulsions, No disequilibrium, No dizziness, No localized weakness, No frequent falls, No headache(s), No lack of coordination, No loss of vision, No memory loss, No numbness, No other visual disturbances, No radicular pain, No restless legs, No sensory deficit, No syncope, No tingling, No tremor(s), No weakness and No other Exam Const General: cooperative Orientation: alert and oriented x3 HENMT Head: normal to inspection Neck Neck: normal visual inspection and full ROM Chest Chest palpation & inspection: normal inspection of the chest Resp Effort & Inspection: normal respiratory effort Auscultation: clear to auscultation bilaterally Cardio Rate: regular rate Rhythm: regular rhythm GI Inspection: non-distended Palpation: soft and nontender Skin General: no rashes or lesions noted Neuro General: patient alert and patient oriented x3 Extrem General: full ROM Psych Appearance: grossly normal Mental Status: mental status grossly normal Assessment and Plan Assessment and Plan (1) Biliary dyskinesia: Status: Acute Plan: Patient has biliary dyskinesia with an ejection fraction of 0%. I discussed robotic assisted laparoscopic cholecystectomy with the patient. I discussed the procedure in detail with the patient. I discussed the risks, benefits, and alternatives of the procedure. I discussed the risks including but not limited to bleeding, infection, injury to surrounding organs such as the liver, bile duct, bowels. I did discuss the possibility of having to convert to an open procedure as well as the possibility that if any injuries occurred this may necessitate further surgery at a tertiary care center. Luis Montelongo MD Pager: [facility] [address] [place] [address], [address] [place] [address] Office: I have examined the patient and the H&P has been reviewed. There are no clinical changes since date of exam.
[2025-07-05] MEDS: Midazolam 2 MG/2 ML Syringe IV (07:28)
--- NOTE | 2025-07-05 07:30 | GALL_PTH ---
PATIENT: CHAY NAVARRO LOC: [facility] [place] U#:[id number] AGE/SX: 30/F ROOM: RE07/05/[address]: Dr. Luis Montelongo MD : 1995 BED: DIS: 07/05/2025 SPEC #: [id number] RECD: 07/05/25 09:38 STATUS: JOSE MARTIN KRUEGER #: [id number] VALENTINO: 07/05/25 07:[address]: Luis Montelongo DEPT: SURGICAL PATHOLOGY RECD BY: Beau Bonds ENTERED: 07/05/25 12:54 SP TYPE: SAMUEL ALVARADO DR: Karina Lassiter MD Tissues: A - Gallbladder, NOS Procedures: Surgery Specimen Level III HEADER OPERATION: Robotic cholecystectomy PRE-OP DIAGNOSIS: Biliary dyskinesia TISSUE SUBMITTED: A- Gallbladder MICROSCOPIC DIAGNOSIS A. Gallbladder, robotic cholecystectomy: - Chronic cholecystitis, cholesterolosis. MICROSCOPIC DESCRIPTION Slides are reviewed. GROSS DESCRIPTION A. Received in formalin labeled with the patient's name and date of . Designated as gallbladder is a 7.4 x 2.5 x 2.2 cm dorsey-pink, focally disrupted but predominantly intact gallbladder with attached, heavily cauterized and clamped cystic duct that appears to be patent (inked black, shaved). A lymph node is not present. Opening reveals light green tenacious bile, devoid of choleliths. The mucosa is pink-dorsey to red and granular with focal ulcerations and a maximum wall thickness of 0.2 cm. Cholesterolosis is present. Can Closing Machine Tender sections are submitted in 1 cassette. PR 07/05/2025 CPT:55108
[2025-07-05] MEDS: Ketorolac 30 MG/ML Syringe IV (07:57)
[2025-07-05] MEDS: Lactated Ringers 1,000 ML 1000 ML IV (08:02)
[2025-07-05] MEDS: Lidocaine 1% (5 ml sdv) 5 ML Vial IV (08:07)
[2025-07-05] MEDS: fentaNYL 100 MCG/2 ML Ampul IV (08:09)
--- NOTE | 2025-07-05 08:33 | PCM.OPRPT ---
Operative Report (Standard) Operative Information Date of Procedure: 07/05/25 Pre-Operative Diagnosis: Biliary dyskinesia Post-Operative Diagnosis: Biliary dyskinesia Surgery/Procedure Performed: Robotic assisted laparoscopic cholecystectomy bore miner operator: Yes Associate Creative Director: Tiarra Greer Tasks completed by night assistant: Opening & closing Type of Anesthesia: General/Regional RN Documented Start/Stop Times: Operation Date: 07/05/25 07:30 Case Time Into Pre-Op 07/05/25 06:01 Out of Pre-Op 07/05/25 07:20 Anesthesia Start 07/05/25 07:27 Into Room 07/05/25 07:27 Procedure Start 07/05/25 07:51 Procedure Start Time: 07:51 Procedure Stop Time: 08:40 Select all DRAINS/GRAFTS/IMPLANTS that apply: None Estimated Blood Loss: 10 Specimen collected: Yes Description of specimen(s) removed: Gallbladder Description of surgery: Patient was brought back to the operating room and general anesthesia was induced. The abdomen was prepped and draped in usual sterile fashion. A midline incision was made and deepened to the fascia which was grasped and elevated and a Veress needle was placed into the abdomen. Drop test was performed. The abdomen was then insufflated to 15 mmHg. The Veress needle was removed and a port was placed. The camera was placed through and the abdomen was inspected for injuries and there were none. The patient was placed in steep reverse Trendelenburg. Under direct visualization an 8 mm ports placed in the right upper quadrant and 2 ports in the left upper quadrant. The robot was then docked. The gallbladder was retracted cephalad and the fundus was located and retracted laterally. The triangle of FELIPE was dissected and the cystic artery and cystic duct were identified. ICG assisted in identifying the cystic duct. They were both clipped triply and divided. Next the gallbladder was taken off of the gallbladder fossa using electrocautery. The gallbladder was placed into a bag and removed. The robot was undocked. The incisions were injected with local anesthetic and closed with interrupted 4-0 Monocryl sutures. Steri-Strips and bandages were applied. Patient was brought to PACU in stable condition. Surgical Findings: None Complications Complications: No Admit VTE Documentation VTE Mechan Device Prophylaxis: SCD's
--- NOTE | 2025-07-05 08:37 | DCINST_ITS ---
Discharge Instructions Procedure Gallbladder Diet Discharge Diet: Light diet - advance as tolerated Activity Discharge Activity: May Not Drive (for 2-3 days or while taking narcotic pain medications.) and - (Do not drive, work heavy equipment or sign legal documents for 24 hours.) May shower in (days): 1 Lifting Restrictions: 20 lbs for 2 weeks Additional Activity Instructions:: Pain medication may cause nausea. You should typically eat light foods as you take your pain medications. Pain medication may also cause constipation. If this is a problem for you, please discuss with your doctor. Alternate ibuprofen and Tylenol for pain control, oxycodone for breakthrough pain Dressing / Incision Call your doctor if your incision/area has: Continuous Slow Oozing, Sudden Increased Bleeding, Increased Pain/ Swelling, Increased Redness and Foul Smelling Discharge Call your doctor if you observe: Fever of 101 or Higher Suture Line Care: Avoid Pulling/Pushing and Avoid Pinching/Bending Remove Dressing in: 2 days Additional Dressing/Incision Instructions:: Leave operative bandaids on for 2 days. When you remove dressing, leave Steri-Strips on until your follow-up appointment, or until the Steri-Strips fall off on their own. Follow Up Care Please Follow Up With: Luis Montelongo MD When: Please call to schedule 2 week follow up appointment. [phone] Test Results: Test results from this visit will be discussed in further detail at your follow- up appointment, if applicable. Discharge Plan Admission Attending Provider: Luis Montelongo Primary Care Provider: Karina Lassiter Instructions Print Language: Anguill[place] Discharge Orders/Prescriptions Prescriptions: New oxycodone 5 mg Tablet 5 - 10 mg PO Q4H PRN PRN (Reason: Pain Score 4-10) 5 Days Qty: 20 0RF No Action clonidine HCl 0.2 mg tablet 0.2 mg PO QHS albuterol sulfate 90 mcg/actuation HFA aerosol inhaler 1 inh inhalation ONCE fluticasone furoate-vilanterol [Breo Ellipta] 100-25 mcg/dose blister with device 1 inh inhalation DAILY Kyleena 17.5 mcg/24 hr (5 yrs) 19.5 mg intrauterine device 1 device intrauterine ONCE Rx Instructions: as a single dose diphenoxylate-atropine [Lomotil] 2.5-0.025 mg tablet 1 tab PO BID PRN (Reason: diarrhea) Qty: 14 1RF insulin aspart U-100 [Novolog U-100 Insulin aspart] 100 unit/mL solution 100 unit subcut DAILY (DME) Dexcom G6 Transmitter Device MISCELLANEOUS Patient Comments: 1 EACH BY INSTRUCTED ROUTE EVERY 90 DAYS melatonin 10 mg capsule 10 mg PO QHS PRN (Reason: sleep) ondansetron 4 mg tablet,disintegrating 4 mg PO Q8H PRN PRN (Reason: nausea/vomiting) omeprazole 40 mg capsule,delayed release(DR/EC) 40 mg PO QHS colestipol 1 gram tablet 4 g PO BID 30 Days Qty: 240 2RF hyoscyamine sulfate 0.125 mg tablet 0.125 mg PO BID-QID PRN (Reason: dyspepsia) Qty: 30 2RF promethazine 12.5 mg tablet 12.5 mg PO TID PRN (Reason: nausea and vomiting) Qty: 20 1RF Referrals / Follow Up: Karina Lassiter MD [Primary Care Provider] - Disposition Disposition (needs filled in before D/C Order can be placed): Home, Self Care
--- NOTE | 2025-07-05 09:00 | SUR.PHASEI ---
breathing treatment by RT
--- NOTE | 2025-07-05 09:09 | PCM.POST.ANE ---
Anesthesia: Postop Eval I Current Vital Signs Temperature: 97.6 F Pulse Rate: 106 Blood Pressure: 130/81 Respiratory Rate: 18 Pulse Ox: 94 Oxygen Delivery Method: Room Air Assessment Airway patent: Yes Spontaneous unlabored respirations: Yes Mental status: Awake and Calm nausea: Yes Vomiting: No Anesthesia Complication: No Fluid Hydration Crystalloid volume administer (ml): 1,000 Total IV fluid infused: 1,000 Progress Note Anesthesia document: Postop Eval 1 completed: Yes
--- NOTE | 2025-07-05 10:26 | SUR.PHASEII ---
Patient reports left front tooth with new chip at the bottom. Anesthesia now aware.
--- NOTE | 2025-07-05 10:27 | POSTOPAN2_ITS ---
Anesthesia Postop Eval I Sum Postop Eval Completion status Anesthesia document: Postop Eval 1 completed: Yes Anesthesia Postop Eval I Summary Anesthesia Postop Eval I Summary: Anesthesia Postop Eval I: Assessment Summary Airway patent Yes 07/05/25 09:11 FOUNDRY METALLURGIST.TDOB Spontaneous unlabored Yes 07/05/25 09:11 FOUNDRY METALLURGIST.TDOB respirations Mental status Awake,Calm 07/05/25 09:11 FOUNDRY METALLURGIST.TDOB nausea Yes 07/05/25 09:11 FOUNDRY METALLURGIST.TDOB Vomiting No 07/05/25 09:11 FOUNDRY METALLURGIST.TDOB Anesthesia Postop Eval I: Fluid Summary Crystalloid volume administer 1,000 07/05/25 09:11 FOUNDRY METALLURGIST.TDOB (ml) Colloids volume administered ( ml) Blood Product volume administered (ml) Total IV fluid infused 1,000 07/05/25 09:11 FOUNDRY METALLURGIST.TDOB Anesthesia Postop Eval I: Summary Notes Anesthesia Complication No 07/05/25 09:11 FOUNDRY METALLURGIST.TDOB Anesthesia Complication Comment: Post-operative progress note Anesthesia: Postop Eval II Evaluation Mental status: Awake Pain Level: 2 nausea: No Vomiting: No
--- NOTE | 2025-07-05 10:27 | PCM.POSTANE2 ---
Anesthesia Postop Eval I Sum Postop Eval Completion status Anesthesia document: Postop Eval 1 completed: Yes Anesthesia Postop Eval I Summary Anesthesia Postop Eval I Summary: Anesthesia Postop Eval I: Assessment Summary Airway patent Yes 07/05/25 09:11 BUILDING CERTIFIER.TDOB Spontaneous unlabored Yes 07/05/25 09:11 BUILDING CERTIFIER.TDOB respirations Mental status Awake,Calm 07/05/25 09:11 BUILDING CERTIFIER.TDOB nausea Yes 07/05/25 09:11 BUILDING CERTIFIER.TDOB Vomiting No 07/05/25 09:11 BUILDING CERTIFIER.TDOB Anesthesia Postop Eval I: Fluid Summary Crystalloid volume administer 1,000 07/05/25 09:11 BUILDING CERTIFIER.TDOB (ml) Colloids volume administered ( ml) Blood Product volume administered (ml) Total IV fluid infused 1,000 07/05/25 09:11 BUILDING CERTIFIER.TDOB Anesthesia Postop Eval I: Summary Notes Anesthesia Complication No 07/05/25 09:11 BUILDING CERTIFIER.TDOB Anesthesia Complication Comment: Post-operative progress note Anesthesia: Postop Eval II Evaluation Mental status: Awake Pain Level: 2 nausea: No Vomiting: No
== END 2025-07-05 10:23 | disposition home or self-care (01) ==
LOC: SDC 05:53 → AC 05:53
PROVIDERS: Anesthesiology; PCP Family Medicine; Referring Provider Surgery; Visit Provider Surgery
PROC: 0FT44ZZ Resection of Gallbladder, Percutaneous Endoscopic Approach (ICD-10-PCS; CPT 47562; principal; 2025-07-05 07:10)
DX: K81.1 Chronic cholecystitis (principal); Z79.4 Long term (current) use of insulin; E10.9 Type 1 diabetes mellitus without complications; K82.8 Other specified diseases of gallbladder; F41.9 Anxiety disorder, unspecified; K21.9 Gastro-esophageal reflux disease without esophagitis; K58.9 Irritable bowel syndrome, unspecified; J45.909 Unspecified asthma, uncomplicated; Z79.51 Long term (current) use of inhaled steroids; Z79.899 Other long term (current) drug therapy
CPT/HCPCS: 47563; S2900; 00790; 36415; 80048; 81025; 82962; 83036; 88304; 93005; J2405

== ENCOUNTER → 2025-08-24 | Outpatient (CLI) | payer BC, SELFPAY ==
[2025-08-24 12:18] LABS: Hematocrit 40.9 % (37-47); Hemoglobin 13.7 g/dL (12.0-15.0); Immature Granulocytes Count 0.010 X10^3/uL (0.0-0.0); Mean Corp Hgb Conc 33.5 g/dL (32-36); Mean Corpuscular Volume 87.2 fL (81-99); Mean Platelet Vol. 10.3 fl (6.2-12.0); NRBC Flagged by Analyzer 0 % (0-5); Platelet Count 225 K/mm3 (150-450); RBC Distribution Width CV 12.0 % (11.6-14.6); RBC Distribution Width SD 38.3 fl (35.1-43.9); Red Blood Count 4.69 M/mm3 (4.2-5.4); White Blood Count 6.1 K/mm3 (4.4-11.0)
[2025-08-24 13:24] LABS: AST(SGOT) 15 U/L (<=31); Alanine Aminotransfer ALT/SGPT 12 U/L (<=34); Albumin, Serum 4.4 g/dL (3.5-5.0); Alkaline Phosphatase 95 U/L (35-104); Anion Gap 10 (5-15); BUN 10 mg/dL (4-19); BUN/Creat Ratio 13.9 RATIO (10-20); Calcium,Total 9.5 mg/dL (7.6-11.0); Carbon Dioxide 25.7 mmol/L (21.0-32.0); Chloride 105 mmol/L (98-108); Globulin 1.9 g/dL (2.2-4.2); Glucose 162 mg/dL (70-99); Potassium 3.7 mmol/L (3.3-5.1)
== END | disposition home or self-care (01) ==
LOC: LAB 11:27
PROVIDERS: PCP Family Medicine; Referring Provider Student in an Organized Health Care Education/Training Program; Visit Provider Student in an Organized Health Care Education/Training Program
DX: R11.0 Nausea (principal); K58.0 Irritable bowel syndrome with diarrhea
CPT/HCPCS: 36415; 80053; 85025